=== PATIENT | female | born 1965 | race Caucasian/White ===

== ENCOUNTER 2018-04-03 12:16 | Inpatient (IN) ==
[2018-04-03 12:35] LABS: ALLEN TEST NO; BE 3.3 mmoll (-3.0-3.0); BLOOD TYPE ARTERIAL; HCO3-(ACT) 27.5 mmoll (20.0-26.0); METHB 1.4 % (0.0-1.5); MODALITY VENTIMASK; O2(CT) 15.2 mL/dL (15.0-23.0); O2HB 96.2 % (95.0-99.0); PO2(98.6) 190 mmHg (60-100); SAMPLE BLOOD; SAO2 99.7 % (95.0-100.0); THB 10.9 g/dL (11.5-17.4); pH(98.6) 7.35 (7.35-7.45)
[2018-04-03 12:36] LABS: PCO2(98.6) 54 mmHg (35-45)
--- NOTE | 2018-04-03 13:14 | Diag Imaging Result Doc PS360 ---
EXAM: CHEST-1 VIEW - 04/03/2018 HISTORY: s/p ? resp arrest/trach plug TECHNIQUE: Portable chest COMPARISON: None. FINDINGS: There is a tracheostomy tube with its tip located 3.5 cm above the milind. There is a PICC which enters from the left has its tip at the distal left innominate vein near the junction with the superior vena cava. Heart size is normal. Inspiration is slightly shallow. There is a small left lower lung granuloma from old granulomatous disease. Lungs otherwise appear essentially clear. There is no pleural effusion or pneumothorax identified. There is subacute or old fracture deformity of the proximal right humerus noted. IMPRESSION: Slightly shallow inspiration. No other evidence of acute disease. Electronically signed by Volodymyr Ricketts 04/03/2018 1:12 PM
[2018-04-03 13:16] LABS: BASO# 0.08 X1000 (0.0-0.2); BASO% 0.5 % (0.0-0.8); EOS% 0.7 % (0.0-10.0); HEMATOCRIT 33.6 % (37.0-47.0); HEMOGLOBIN 10.4 g/dL (12.0-16.0); IMM GRAN# 0.07 X1000 (0.0-0.04); IMM GRAN% 0.5 % (0.0-0.5); LYMPH# 1.87 X1000 (1.2-3.4); LYMPH% 12.5 % (20.5-51.1); MCV 90.3 FL (81-99); MONO# 0.94 X1000 (0.11-0.59); MONO% 6.3 % (1.7-9.3); MPV 11.5 FL (7.4-10.4); NEUT% 79.5 % (42.2-75.2); PLT 407 X1000 (130-400); RBC 3.72 XMIL (4.2-5.4); RDW 14.4 % (11.5-14.5); WBC 14.96 X1000 (4.8-10.8)
[2018-04-03 13:56] LABS: ESTIMATED GFR > 60
[2018-04-03 14:01] LABS: AGAP 12; ALBUMIN 3.5 g/dL (3.5-5.0); ALKALINE PHOSPHATASE 217 U/L (32-104); BUN 52 mg/dL (8-22); CALCIUM 8.5 mg/dL (8.8-10.2); CHLORIDE 108 mmol/L (98-107); COSMO 320; CREATININE 0.8 mg/dL (0.5-0.9); GLUCOSE 337 mg/dL (70-104); GOT 43 U/L (10-30); GPT 39 U/L (10-36); MAGNESIUM 2.6 mg/dL (1.5-2.7); POTASSIUM 5.6 mmol/L (3.5-5.1); SODIUM 147 mmol/L (136-145); TCO2 27 mmol/L (25-35); TOTAL BILIRUBIN 0.19 mg/dL (0.20-1.00); TOTAL PROTEIN 7.1 g/dL (6.3-8.3)
[2018-04-03] MEDS ORDERED: 1/2 NS 1,000 ML IV ONE (14:47)
[2018-04-03] MEDS ORDERED: HUMULIN R IV ONE (14:48)
[2018-04-03] MEDS ORDERED: CALCIUM GLUCONATE IV PUSH ONE (16:51)
[2018-04-03] MEDS ORDERED: XOPENEX NEB INH PRN (16:52)
[2018-04-03] MEDS ORDERED: ZOFRAN PEG PRN ×2 (16:58→19:33)
[2018-04-03] MEDS ORDERED: REGLAN PEG PRN (16:58)
[2018-04-03] MEDS ORDERED: DULCOLAX PR PRN (16:58)
[2018-04-03] MEDS ORDERED: VANCOMYCIN IV PER PHARMACY MISC SCH (17:00)
[2018-04-03] MEDS: NS 1,000 ML IV SCH (17:10)
[2018-04-03] MEDS ORDERED: ASPIRIN PEG SCH (17:15)
[2018-04-03 17:25] LABS: URINE SOURCE CATH
[2018-04-03] MEDS: PROTONIX IV SCH (17:27)
[2018-04-03 17:36] LABS: HEMOGLOBIN A1C 6.2 % (4.8-6.0)
[2018-04-03 17:41] LABS: BILIRUBIN URINE NEGATIVE (NEGATIVE); BLOOD URINE SMALL (NEGATIVE); COLOR YELLOW; GLUCOSE URINE 300 mg/dL (NEGATIVE); KETONE URINE NEGATIVE (NEGATIVE); LEUKOCYTES URINE SMALL (NEGATIVE); NITRITE URINE NEGATIVE (NEGATIVE); PH URINE 7.5; PROTEIN URINE 300 mg/dL (NEGATIVE); SP GRAVITY URINE 1.013; TURBIDITY URINE CLEAR (CLEAR); UROBILINOGEN URINE NORMAL (NORMAL)
[2018-04-03 17:43] LABS: UR EPITHELIAL CELLS >10 /HPF (<10); URINE BACTERIA NEGATIVE /HPF; URINE RBC <10 /HPF (<10); URINE WBC 20-40 /HPF (<10)
[2018-04-03 17:47] LABS: INR 0.98; PROTIME 13.7 Seconds (11.0-16.0); URINE CASTS GRANULAR PRESENT; URINE CRYSTALS NONE SEEN; URINE YEAST PRESENT
[2018-04-03] MEDS: MAXIPIME 2 GM in NS 100 ML IV SCH (18:17)
[2018-04-03 18:32] LABS: ESTIMATED GFR > 60
--- NOTE | 2018-04-03 18:35 | HISTORY AND PHYSICAL ---
DATE OF ADMISSION: 04/03/2018. CHIEF COMPLAINT: Respiratory distress. HISTORY OF PRESENT ILLNESS: Ms. Marrero is an unfortunate [id number]- female with a history of poly infarct dementia and has chronic respiratory failure and is in a bed bound state. Her history is quite complex and is only obtained per record review. She currently resides at [facility]. Over the past three months, she has suffered a severe and massive stroke followed by cardiac arrest and was subsequently trach and pegged and sent to LTAC in [place]. During that time, she was noted to be septic with tracheitis as well as found to have bilateral ileal psoas abscesses that were not amenable to intervention per the record. She was placed on long-term antibiotics and was discharged from LTAC on 03/24/2018 and transferred to [facility]. It appears that she is still on vancomycin but has completed all the rest of her antibiotics. She was transferred to our facility today because there was a question of respiratory arrest. However, per the ER doctor, when she got here, the patient was not in respiratory arrest. Apparently she had a mucus plug and with bag valve ventilation this was cleared , and she improved her respiratory status significantly. On further work up, she was found to be slightly hypercapnic. She had a white count of 15,000. She was also noted to be dehydrated with hypernatremia, mild hyperkalemia, elevated liver function tests and hyperglycemic. It was felt that she would need admission for these factors rather than respiratory symptoms. However, she is tachypneic and starting to have low grade fever as well as tachycardia. Again, this history is obtained per record review. The patient is nonverbal. Minimally responsive. There is no family at the bedside. We have tried to contact family, but the one contact number we have, no one answers the phone. We will admit her for further treatment and evaluation. PAST MEDICAL HISTORY: 1. Multi infarct dementia, bed bound state. 2. Status post cardiac arrest, now with chronic respiratory failure on trach and PEG. 3. Bilateral ileac muscle abscesses not amenable to IR on IV antibiotics which have essentially been completed. 4. Asthma. 5. Hyperlipidemia. 6. Osteoarthritis. 7. Diabetes mellitus. 8. Hypertension. 9. MRSA tracheitis. 10.Hepatitis C positive. 11.Complete bed bound state. 12.Status DNR per chart. SURGICAL HISTORY: Unknown. SOCIAL HISTORY: Unknown. REVIEW OF SYSTEMS: Unable to obtain. FAMILY HISTORY: Unknown. HOME MEDICATIONS: 1. Acetaminophen 650 mg per PEG q. 6 hours. 2. Breathing treatment--DuoNeb--3 mL every 6 hours. 3. Zyloprim 300 mg PEG daily. 4. Lipitor 20 mg PEG daily. 5. Dulcolax 10 mg suppository as needed. 6. Peridex oral solution 50 mg b.i.d. 7. Plavix 75 mg daily by PEG. 8. Pepcid 20 mg daily by PEG. 9. Lisinopril 5 mg daily by PEG. 10.Reglan 10 mg daily by PEG every 8 hours. 11.Singulair 10 mg daily by PEG daily. 12.NPH insulin 5 units subcutaneously b.i.d. 13.Zofran 4 mg per PEG as needed. 14.MiraLAX 17 grams per PEG b.i.d. 15.Vancomycin 750 mg IV piggyback as directed. ALLERGIES: NO KNOWN DRUG ALLERGIES. PHYSICAL EXAM: VITAL SIGNS: Blood pressure 123/91, heart rate 120, respiratory rate 28 and O2 saturation 100% on trach collar. Temperature 99.2. GENERAL: This is a chronically ill, malnourished appearing [id number]- female lying in a hospital bed in no acute distress. NEUROLOGICAL: The patient opens her eyes to verbal stimulus and follows commands. Muscle strength is greater on the right than left. It is 3/5 in the right upper and lower extremities and 2/5 on the left. HEENT: Normocephalic, atraumatic. Pupils are equal, round and reactive to light. Oral mucosa is dry. Trachea is midline. Trach is without exudate around the surgical site. CHEST: Essentially clear to auscultation bilaterally. She is tachypneic. CV: Tachycardic and regular. S1, S2 noted. GI: Soft and nondistended. Bowel sounds are active. EXTREMITIES: Without edema. Pulses are 1+ bilaterally. DIAGNOSTIC DATA: Chest x-ray shows shallow inspiration. No evidence of acute disease. WBC 15,000, hemoglobin 10.4, hematocrit 33.6 and platelet count 407. ABG on 50% FIO2--pH 7.35, pCO2 54 and pO2 190 with a bicarb of 27.5. Sodium 147, potassium 5.6, chloride 108, CO2 27, anion gap 12, BUN 52, creatinine 0.8 and glucose 337. Calcium 8.5, T-bili 0.19, AST 43, ALT 39, alk phos 217, troponin 0.1. ASSESSMENT AND PLAN: 1. Question of respiratory arrest/respiratory failure: The patient is hypercapnic. Unclear what her baseline is. There is no pneumonia on x-ray. However, given the above and her history, it would be prudent to start her on broad spectrum antibiotics. We have started her on Cefepime and vancomycin. We will continue oxygen as needed. Aggressive pulmonary toilet. Breathing treatments. She is DNR. There was a question of mucus plugging, but as stated previously this was likely cleared with bag valve mask connected to the trach. We will check a chest x-ray in the morning and monitor her status closely. 2. Presumed sepsis: The patient is tachypneic and tachycardic with an elevated white count. We do not have a source of infection. However, presuming possible aspiration pneumonia versus continued infection with possible ileal psoas abscesses or MRSA tracheitis, we have ordered childers cultures and will continue IV fluids. We will likely need infectious disease consultation for antibiotic management machine long goods helper. 3. Volume depletion with hypernatremia and hyperchloremia. The patient is clearly dehydrated. She has been given fluids. We will continue and trend her electrolytes. 4. Hyperkalemia: We are giving calcium gluconate, insulin, and breathing treatments. We will recheck a BMP now and in the morning and continue to treat as necessary. We are checking an EKG as well. 5. History of ileal psoas abscesses bilaterally and MRSA tracheitis: Continue antibiotics as described in numbers one and two. Culture is pending. 6. Diabetes mellitus requiring insulin. A1C has been ordered. Will continue her home medication and add pattern sugars and sliding scale insulin. 7. Elevated troponin: Unclear as to the significance given her inability to communicate. It is difficult to know if this is cardiac in origin or possibly secondary to dehydration and sepsis. We will continue to trend her enzymes and monitor. She is on Plavix which we will continue. We will also make sure she is getting aspirin. 8. History of hepatitis C. Aware. 9. History of multi infarct CVA with expressive aphasia. Aware. She is responsive and does follow commands with weakness as described in the physical exam. At this time, there is no need to check head CT. However, if her neurological status changes, we will go ahead and check one. We will continue aspirin and Plavix. 10.DVT prophylaxis with SCDs and GI prophylaxis with Protonix. We have also placed a nutrition consult for her tube feeding. CRITICAL CARE TIME: Greater than 1 hour. Dictated by STEPHEN Campos for Prasad Nunes MD Patient seen and examined by me face to face, all the laboratory, images and vitals signs were reviewed, patient presented to the emergency department with respiratory distress, unfortunately she is bed bound and she is nonverbal as well, she has bilateral rhonchi, crackles, decrease breath sound, decreased muscle mass, she looks like a chronically ill patient, had multiples strokes in the past, I am not quite sure about the history today, she probably has pneumonia, we will place this lady on antibiotics, breathing treatment , continue with nutrition, IV fluids, she has a tracheostomy in place, I agree with the BENEFITS ADVISOR's assessment and plan, Prasad Velasquez MD. cc: STEPHEN Campos MD [facility]
[2018-04-03 18:37] LABS: AGAP 13; BUN 51 mg/dL (8-22); CALCIUM 8.2 mg/dL (8.8-10.2); CHLORIDE 108 mmol/L (98-107); COSMO 309; CREATININE 0.7 mg/dL (0.5-0.9); GLUCOSE 180 mg/dL (70-104); POTASSIUM 5.1 mmol/L (3.5-5.1); SODIUM 146 mmol/L (136-145); TCO2 25 mmol/L (25-35)
[2018-04-03] MEDS: XOPENEX NEB INH SCH ×2 (19:30→23:30)
[2018-04-03] MEDS ORDERED: VANCOMYCIN 1,350 MG in NS 250 ML IV ONE (20:00)
[2018-04-03] MEDS: HUMULIN R SUBQ SCH (20:58)
[2018-04-03] MEDS: PERIDEX MT SCH (21:00)
[2018-04-03] MEDS ORDERED: LIPITOR PEG SCH (21:00)
[2018-04-03] MEDS: LIPITOR PEG SCH (21:55)
[2018-04-03] MEDS: MIRALAX PEG SCH (21:55)
[2018-04-03] MEDS: HUMULIN N SUBQ SCH (22:00)
[2018-04-04] MEDS: NS 1,000 ML IV SCH ×2 (01:45→09:49)
[2018-04-04] MEDS: XOPENEX NEB INH SCH ×4 (03:00→23:34)
[2018-04-04] MEDS: MAXIPIME 2 GM in NS 100 ML IV SCH ×2 (05:20→16:50)
[2018-04-04 05:42] LABS: AGAP 11; ALB/GLOB RATIO 0.8; ALBUMIN 2.8 g/dL (3.5-5.0); ALKALINE PHOSPHATASE 144 U/L (32-104); BUN 43 mg/dL (8-22); CHLORIDE 111 mmol/L (98-107); COSMO 303; CREATININE 0.6 mg/dL (0.5-0.9); ESTIMATED GFR > 60; GLUCOSE 102 mg/dL (70-104); GOT 22 U/L (10-30); GPT 25 U/L (10-36); MAGNESIUM 2.2 mg/dL (1.5-2.7); POTASSIUM 4.4 mmol/L (3.5-5.1); SODIUM 147 mmol/L (136-145); TCO2 25 mmol/L (25-35); TOTAL BILIRUBIN 0.33 mg/dL (0.20-1.00); TOTAL PROTEIN 6.5 g/dL (6.3-8.3)
[2018-04-04] MEDS: HUMULIN R SUBQ SCH ×4 (06:49→22:31)
--- NOTE | 2018-04-04 06:53 | Diag Imaging Result Doc PS360 ---
EXAM: CHEST-PORTABLE HISTORY: PNA TECHNIQUE: Portable chest single view COMPARISON: 04/03/2018 FINDINGS: No change in the tracheostomy tube. Interval development of basilar infiltrates or atelectasis, right greater than left. No cardiomegaly. No change in the left-sided PICC line. IMPRESSION: Interval worsening. Electronically signed by Kian Larios 04/04/2018 6:51 AM
--- NOTE | 2018-04-04 08:11 | EKG Report ---
Test Performed on : 04/03/2018 12:41:52 PM Test Reason : tachycardia, hyperkalemic Blood Pressure : / mmHG Vent. Rate : 131 BPM Atrial Rate : 131 BPM P-R Int : 122 ms QRS Dur : 076 ms QT Int : 296 ms P-R-T Axes : 046 011 046 degrees QTc Int : 437 ms Sinus tachycardia. Cannot rule out Anterior infarct , age undetermined Abnormal ECG When compared with ECG of 14-FEB-2007 20:41, No significant change was found Unconfirmed Result
[2018-04-04 08:18] LABS: BASO# 0.06 X1000 (0.0-0.2); BASO% 0.4 % (0.0-0.8); EOS% 2.2 % (0.0-10.0); HEMATOCRIT 29.5 % (37.0-47.0); HEMOGLOBIN 9.2 g/dL (12.0-16.0); IMM GRAN# 0.05 X1000 (0.0-0.04); IMM GRAN% 0.4 % (0.0-0.5); LYMPH# 1.92 X1000 (1.2-3.4); LYMPH% 14.2 % (20.5-51.1); MCH 28.5 PG (27-31); MCHC 31.2 g/dL (33-37); MCV 91.3 FL (81-99); MONO# 0.76 X1000 (0.11-0.59); MONO% 5.6 % (1.7-9.3); MPV 11.2 FL (7.4-10.4); NEUT# 10.42 X1000 (1.4-6.5); NEUT% 77.2 % (42.2-75.2); PLT 348 X1000 (130-400); RBC 3.23 XMIL (4.2-5.4); RDW 14.1 % (11.5-14.5); WBC 13.51 X1000 (4.8-10.8)
[2018-04-04] MEDS ORDERED: PEPCID PEG SCH (09:00)
[2018-04-04] MEDS: PRINIVIL PEG SCH (10:02)
[2018-04-04] MEDS: PLAVIX PEG SCH (10:02)
[2018-04-04] MEDS: ZYLOPRIM PEG SCH (10:02)
[2018-04-04] MEDS: MIRALAX PEG SCH ×3 (10:02→22:30)
[2018-04-04] MEDS: SINGULAIR PEG SCH (10:02)
[2018-04-04] MEDS: PERIDEX MT SCH (10:03)
[2018-04-04] MEDS: HUMULIN N SUBQ SCH ×2 (10:07→22:30)
[2018-04-04] MEDS: 1/2 NS 1,000 ML IV SCH (11:45)
--- NOTE | 2018-04-04 11:56 | PROGRESS NOTE ---
DATE: 04/04/2018 SUBJECTIVE: Patient is lying comfortably in bed. I do not think she is complaining of any kind of pain. She is nonverbal, and it looks like she follows commands on and off. Severe protein calorie malnutrition. Admitted due to apparently some respiratory distress. She does have some infiltrates at the bases, and we have a positive culture that showed gram-negative bianca in the sputum. I will continue with cefepime. This patient is DNR. She has multi-infarct dementia and cardiac arrest before with chronic respiratory failure on a trach and PEG tube. OBJECTIVE: Vital Signs: Temperature 97.8 degrees, pulse 112, respiratory rate 24, blood pressure 151/76, oxygen saturation 100% on a trach collar with 40% oxygen flow. HEENT: Head normocephalic. No trauma. PERRLA. Neck: Supple. No JVD. No masses. Central trachea. Chest: Decreased breath sounds at the bases with some rhonchi bilaterally. Abdomen: Soft, nontender, and nondistended. No hepatosplenomegaly. Extremities: No edema. No clubbing. No cyanosis. Decreased muscle mass and some muscle contracture. Neurological: The patient open her eyes to verbal stimuli, and she follows commands. She has generalized weakness, but I think her right side is stronger compared with the left side, but it is hard to say given her condition and she is nonverbal. LABORATORY: WBC 13.5, hemoglobin 9.2, hematocrit 29.5, and platelets 248,000. Sodium 147, potassium 4.4, chloride 111, bicarbonate 25, BUN 43, creatinine 0.6, glucose 102. Calcium 9. AST 22. ALT 25, alkaline phosphatase 144, albumin 2.8 and troponin 0.1. ASSESSMENT AND PLAN: 1. Acute on chronic respiratory failure. This patient has some infiltrates on the x-ray at the bases. We have a positive culture that showed gram-negative rods. She has been placed on cefepime. I will continue with the same management. Breathing treatment. Pulmonary toilet. She has a tracheostomy. 2. Bilateral lower lung pneumonia, she does have some infiltrates at the bases with a positive culture that showed gram-negative rods. She has been placed on cefepime and I will wait for the final sensitivity. 3. Severe dehydration. She looks better today, but she is still hypernatremic. I will stop the NS and I will put her on half NS and monitor. 4. Sepsis. This patient was tachypneic and tachycardic with elevated white blood cells, and he has some bilateral lower lobe infiltrates. Positive culture that showed gram-negative rods in the sputum. Apparently, also she had/has a psoas abscess or MRSA tracheitis history. We are childers culturing this patient. We will continue with the same management. 5. Hypernatremia. Like I mentioned before, I will change the fluid to half NS and monitor. 6. Hyperkalemia, resolved. 7. History of iliopsoas abscess and MRSA tracheitis. Continue with antibiotics. 8. Type 2 diabetes. Hemoglobin A1c is 6.2. We will continue with pattern of blood sugar and sliding scale insulin for now. 9. Elevated troponin of unclear significance given her inability to communicate. Her troponin has been around 0.1 x 4. I do not think she is a good candidate for any kind of invasive procedure. For now, we will monitor. 10. History of hepatitis C. Aware. 11. History of multi-infarct CVA with expressive aphasia She is nonverbal. For now, I will not do a CT scan unless there is some neurological changes. I think compared with yesterday she looks a little bit better. We will continue with aspirin and Plavix. 12. Deep vein thrombosis prophylaxis with sequential compression devices. cc: Prasad Nunes MD
[2018-04-04] MEDS ORDERED: CALMOSEPTINE OINTMENT TOP PRN (12:04)
[2018-04-04] MEDS: SODIUM CHLORIDE 0.9% INJ SCH (16:50)
[2018-04-04] MEDS: PROTONIX IV SCH (16:50)
[2018-04-04] MEDS: TYLENOL MISC PRN (22:20)
[2018-04-04] MEDS: LIPITOR PEG SCH (22:20)
[2018-04-05] MEDS: VANCOMYCIN 1,100 MG in NS 250 ML IV SCH (02:18)
[2018-04-05] MEDS: 1/2 NS 1,000 ML IV SCH ×2 (03:00→16:17)
[2018-04-05] MEDS: XOPENEX NEB INH SCH ×6 (03:58→22:54)
[2018-04-05] MEDS: MAXIPIME 2 GM in NS 100 ML IV SCH ×2 (04:00→16:15)
[2018-04-05] MEDS: PERIDEX MT SCH ×3 (05:46→22:13)
[2018-04-05 06:05] LABS: BASO# 0.08 X1000 (0.0-0.2); BASO% 0.6 % (0.0-0.8); EOS# 0.35 X1000 (0.0-0.7); EOS% 2.6 % (0.0-10.0); HEMATOCRIT 28.1 % (37.0-47.0); HEMOGLOBIN 8.8 g/dL (12.0-16.0); IMM GRAN# 0.05 X1000 (0.0-0.04); IMM GRAN% 0.4 % (0.0-0.5); LYMPH# 1.76 X1000 (1.2-3.4); LYMPH% 13.2 % (20.5-51.1); MCH 28.4 PG (27-31); MCHC 31.3 g/dL (33-37); MCV 90.6 FL (81-99); MONO# 1.07 X1000 (0.11-0.59); MPV 11.2 FL (7.4-10.4); NEUT# 10.06 X1000 (1.4-6.5); NEUT% 75.2 % (42.2-75.2); PLT 355 X1000 (130-400); RDW 13.8 % (11.5-14.5); WBC 13.37 X1000 (4.8-10.8)
[2018-04-05 06:37] LABS: AGAP 9; ALB/GLOB RATIO 0.8; ALBUMIN 2.9 g/dL (3.5-5.0); ALKALINE PHOSPHATASE 168 U/L (32-104); BUN 32 mg/dL (8-22); CALCIUM 8.8 mg/dL (8.8-10.2); CHLORIDE 111 mmol/L (98-107); COSMO 304; CREATININE 0.5 mg/dL (0.5-0.9); ESTIMATED GFR > 60; GLUCOSE 255 mg/dL (70-104); GOT 24 U/L (10-30); GPT 26 U/L (10-36); POTASSIUM 4.8 mmol/L (3.5-5.1); SODIUM 145 mmol/L (136-145); TCO2 25 mmol/L (25-35); TOTAL BILIRUBIN 0.22 mg/dL (0.20-1.00); TOTAL PROTEIN 6.6 g/dL (6.3-8.3)
--- NOTE | 2018-04-05 07:36 | Diag Imaging Result Doc PS360 ---
CHEST-PORTABLE - 04/05/2018 INDICATION: PNA COMPARISON: 04/04/2018 FINDINGS: Stable tracheostomy tube and left PICC line. There is collapse of the right middle lobe that has progressed since prior. The left lung remains clear. Heart size and pulmonary vascularity is normal. IMPRESSION: Essentially complete collapse of the right middle lobe probably mucous plugging. Electronically signed by Colten Moran 04/05/2018 7:34 AM
[2018-04-05] MEDS: HUMULIN R SUBQ SCH ×4 (08:09→22:14)
[2018-04-05] MEDS: MIRALAX PEG SCH ×2 (08:14→22:13)
[2018-04-05] MEDS: ZYLOPRIM PEG SCH (08:14)
[2018-04-05] MEDS: SINGULAIR PEG SCH (08:14)
[2018-04-05] MEDS: PRINIVIL PEG SCH (08:14)
[2018-04-05] MEDS: PLAVIX PEG SCH (08:14)
[2018-04-05] MEDS: HUMULIN N SUBQ SCH ×2 (10:55→22:14)
--- NOTE | 2018-04-05 11:48 | PROGRESS NOTE ---
DATE: 04/05/2018 SUBJECTIVE: Ms. Marrero presented with respiratory distress on 04/03/2018. A 52-year-old female with history of poly infarct dementia, chronic respiratory failure, bed-bound. Her history is quite complex and obtained from the old records. She suffered severe massive stroke followed by cardiac arrest, subsequent tracheostomy and, during that time, she was noted to be septic and tracheitis, found to have bilateral ileus psoas abscess that were not amenable to intervention, placed on long-term antibiotics and discharged on 03/24/2018, transferred to [facility]. It appears that she had vancomycin continued, and they completed the rest of her antibiotics. She was transferred to our facility because of question respiratory arrest. In the emergency room, the patient was not in respiratory arrest. Apparently she had a mucous plug and with bag-valve ventilation she was cleared, improved. Her respiratory status improved significantly. Further work up reveals she is found to be slightly hypercapnic. White count 15,000, noted to be dehydrated with hyponatremia, hyperkalemia, liver function test with elevated transaminases and hyperglycemia, so was admitted to adjust these factors. PAST MEDICAL HISTORY: 1. Multi-infarct dementia, bed bound. 2. Status post cardiac arrest with chronic respiratory failure on a tracheostomy. 3. Has a percutaneous endoscopic gastrostomy tube. 4. Bilateral iliac muscle for ileus psoas muscle abscess, which was not amenable to surgery. Received antibiotics, which had been completed. 5. Asthma. 6. Hyperlipidemia. 7. Osteoarthritis. 8. Diabetes mellitus. 9. Hypertension. 10. Methicillin-resistant Staphylococcus aureus tracheitis. 11. Hepatitis C positive. 12. Complete bed-bound state. 13. She is status do not resuscitate, so today she is awake. She really does not answer any questions. Has a trach with supplementary O2. OBJECTIVE: Temperature is 99 degrees, pulse 116, respirations 24, blood pressure 169/96.Eyes: Pupils are equal and round. Lungs: Clear in all lung zimmer. Cardiovascular exam: Regular rhythm and rate without murmur or S3. Abdomen: Soft. Skin: Warm, dry. Urine output is 5700 mL. LABS AND X-RAYS: Her blood sugars 209, 255, 279 and 170. EKG from this morning reveals sinus tachycardia, slow R-wave progression, no significant change. Chest x-ray from this morning: Essentially complete collapse of the right middle lobe, probably mucous plugging. ASSESSMENT AND PLAN: 1. Acute on chronic respiratory failure. Patient has had some infiltrates on chest x-ray at the bases. Positive cultures showed gram-negative rods. Appears to have some mucous plugging and atelectasis. He is placed on cefepime. 2. Bilateral lower lobe pneumonia. Continue to cover for gram-negative rods. Still on cefepime. 3. Severe dehydration, given intravenous fluids. This may help the mucous plugging. 4. Sepsis, came in with tachypnea and tachycardia, elevated white count, and some bilateral lower lobe infiltrates. Positive culture showed gram-negative rods in the sputum. Apparently has had ileus psoas abscesses which have been treated, and they grew out methicillin-resistant Staphylococcus aureus. 5. Tracheitis, which has been several months. 6. Hypernatremia. 7. Hyperkalemia, which I think is resolved. 8. History of ileus psoas muscles with methicillin-resistant Staphylococcus aureus tracheitis. 9. Diabetes mellitus type 2. 10. She had an elevated troponin when she presented. I did not think that there is evidence of cardiac ischemia or ongoing coronary insufficiency at this time. 11. History of hepatitis C. 12. History of multi-infarct cerebrovascular accident. A large cerebrovascular accident with expressive aphasia. So, continue present therapy. I think we should continue to try and give her some breathing treatments with DuoNeb, and I will put her on some guaifenesin. She right now is on vancomycin 1100 mg q. 30 hours. She is on MiraLAX 17 g b.i.d., Protonix 40 mg a day, Singulair 10 mg a day, cefepime 2 g IV q. 12 hours, lisinopril 5 mg per PEG daily. She is getting Xopenex breathing treatment 1.25 mg q. 4 hours, Plavix 75 mg a day, allopurinol 300 mg a day, Lipitor 20 mg a day, and she is getting normal saline at 75 mL an hour. cc: Willian Cabezas MD
[2018-04-05] MEDS: ROBITUSSIN PO SCH ×3 (12:17→22:15)
[2018-04-05] MEDS: TYLENOL MISC PRN ×2 (12:17→22:13)
[2018-04-05] MEDS: SODIUM CHLORIDE 0.9% INJ SCH (16:15)
[2018-04-05] MEDS: PROTONIX IV SCH (16:15)
[2018-04-05] MEDS: LIPITOR PEG SCH (22:13)
[2018-04-06] MEDS: ROBITUSSIN PO SCH ×6 (02:04→22:36)
[2018-04-06] MEDS: XOPENEX NEB INH SCH ×6 (02:41→23:00)
[2018-04-06 05:49] LABS: BASO# 0.06 X1000 (0.0-0.2); BASO% 0.5 % (0.0-0.8); EOS# 0.42 X1000 (0.0-0.7); EOS% 3.5 % (0.0-10.0); HEMATOCRIT 27.9 % (37.0-47.0); HEMOGLOBIN 8.8 g/dL (12.0-16.0); IMM GRAN# 0.05 X1000 (0.0-0.04); IMM GRAN% 0.4 % (0.0-0.5); LYMPH# 2.14 X1000 (1.2-3.4); LYMPH% 17.8 % (20.5-51.1); MCH 28.4 PG (27-31); MCHC 31.5 g/dL (33-37); MONO# 0.95 X1000 (0.11-0.59); MONO% 7.9 % (1.7-9.3); NEUT# 8.38 X1000 (1.4-6.5); NEUT% 69.9 % (42.2-75.2); PLT 326 X1000 (130-400); RDW 13.8 % (11.5-14.5)
[2018-04-06] MEDS: 1/2 NS 1,000 ML IV SCH ×4 (06:14→22:34)
[2018-04-06] MEDS: MAXIPIME 2 GM in NS 100 ML IV SCH ×2 (06:15→16:19)
[2018-04-06 06:18] LABS: AGAP 10; ALB/GLOB RATIO 0.7; ALBUMIN 2.6 g/dL (3.5-5.0); ALKALINE PHOSPHATASE 145 U/L (32-104); BUN 24 mg/dL (8-22); CALCIUM 9.1 mg/dL (8.8-10.2); CHLORIDE 110 mmol/L (98-107); COSMO 301; CREATININE 0.5 mg/dL (0.5-0.9); ESTIMATED GFR > 60; GLUCOSE 207 mg/dL (70-104); GOT 17 U/L (10-30); GPT 20 U/L (10-36); MAGNESIUM 1.9 mg/dL (1.5-2.7); POTASSIUM 4.4 mmol/L (3.5-5.1); SODIUM 146 mmol/L (136-145); TCO2 26 mmol/L (25-35); TOTAL BILIRUBIN 0.17 mg/dL (0.20-1.00); TOTAL PROTEIN 6.1 g/dL (6.3-8.3)
[2018-04-06] MEDS: HUMULIN R SUBQ SCH ×4 (07:00→22:35)
[2018-04-06] MEDS: MIRALAX PEG SCH ×2 (08:39→22:36)
[2018-04-06] MEDS: VANCOMYCIN 1,100 MG in NS 250 ML IV SCH (08:39)
[2018-04-06] MEDS: PRINIVIL PEG SCH (08:39)
[2018-04-06] MEDS: PLAVIX PEG SCH (08:39)
[2018-04-06] MEDS: HUMULIN N SUBQ SCH ×2 (08:39→22:35)
[2018-04-06] MEDS: ZYLOPRIM PEG SCH (08:39)
[2018-04-06] MEDS: SINGULAIR PEG SCH (08:39)
[2018-04-06] MEDS: PERIDEX MT SCH ×2 (08:40→22:36)
--- NOTE | 2018-04-06 09:20 | Diag Imaging Result Doc PS360 ---
EXAM: CHEST-PORTABLE 04/06/2018 HISTORY: PNA TECHNIQUE: AP portable at 0545 COMMENT: There is some improvement in the atelectasis in the right lower lobe compared to 04/05/2018. IMPRESSION: Improved atelectasis versus pneumonia. Electronically signed by Bao Hall 04/06/2018 9:17 AM
--- NOTE | 2018-04-06 10:24 | PROGRESS NOTE ---
DATE: 04/06/2018 SUBJECTIVE: Ms. Marrero was resting comfortably. She has a trach O2 and breathing comfortably. Easy to arouse. OBJECTIVE: Temperature 98.4, pulse 108, respirations 20, blood pressure 157/ 91. Pupils are equal and round. Lungs are clear in all lung zimmer. Cardiovascular: Regular rhythm and rate without murmur or S3. Abdomen is soft. Skin is warm and dry. No pedal edema. Urine output was 2800 mL. Chest x-ray from this morning, there is some improvement in atelectasis in the right lower lobe compared to 04/05/2018. ASSESSMENT AND PLAN: 1. [id number] respiratory failure. She has had some infiltrates on chest x-ray at the bases. Overall, it seems to be improving. There has been some mucous plugging. She is on cefepime. Continue present regimen and bronchodilators. She seems to be doing better. She still has supplemental O2 through her trach. 2. Bilateral lower lobe pneumonia which appears to be improving we continue coverage for gram- negative rods. Broad-spectrum coverage with cefepime. 3. Severe dehydration; on IV fluids. This seems to be improving. 4. Sepsis when she presented with tachypnea and tachycardia and elevated white count. 5. Tracheitis. treated for several months. Seems to be improving. 6. Hyponatremia. 7. Hyperkalemia. 8. History of psoas muscle abscess. Been treated for probable methicillin- resistant Staphylococcus aureus. 9. Diabetes mellitus, type 2. 10. Elevated troponin on presentation. No sign of cardiac ischemia. 11. History of hepatitis C. 12. She has multi-infarct dementia, and she has had cerebral vascular accident in the past with expressive aphasia. Continue present medications and treatment. cc: MD COCO Robert
[2018-04-06] MEDS: PROTONIX IV SCH (16:19)
[2018-04-06] MEDS: SODIUM CHLORIDE 0.9% INJ SCH (16:19)
[2018-04-06] MEDS: LIPITOR PEG SCH (22:35)
[2018-04-06] MEDS: TYLENOL MISC PRN (22:35)
[2018-04-07] MEDS: XOPENEX NEB INH SCH ×7 (03:00→23:30)
[2018-04-07] MEDS: ROBITUSSIN PO SCH ×5 (03:17→17:29)
[2018-04-07] MEDS: MAXIPIME 2 GM in NS 100 ML IV SCH ×2 (05:25→17:27)
[2018-04-07] MEDS: 1/2 NS 1,000 ML IV SCH ×2 (06:47→13:58)
[2018-04-07] MEDS: HUMULIN R SUBQ SCH ×3 (07:00→17:14)
[2018-04-07] MEDS: PRINIVIL PEG SCH (10:02)
[2018-04-07] MEDS: SINGULAIR PEG SCH (10:02)
[2018-04-07] MEDS: ZYLOPRIM PEG SCH (10:02)
[2018-04-07] MEDS: PLAVIX PEG SCH (10:02)
[2018-04-07] MEDS: HUMULIN N SUBQ SCH (10:12)
[2018-04-07] MEDS: PERIDEX MT SCH (10:24)
[2018-04-07] MEDS: MIRALAX PEG SCH (10:25)
[2018-04-07 10:34] LABS: AGAP 7; BUN 29 mg/dL (8-22); CALCIUM 8.4 mg/dL (8.8-10.2); CHLORIDE 106 mmol/L (98-107); COSMO 294; CREATININE 0.5 mg/dL (0.5-0.9); ESTIMATED GFR > 60; GLUCOSE 224 mg/dL (70-104); PHOSPHORUS 3.4 mg/dL (2.7-4.5); POTASSIUM 4.7 mmol/L (3.5-5.1); SODIUM 141 mmol/L (136-145); TCO2 28 mmol/L (25-35)
[2018-04-07 11:24] LABS: PREALBUMIN 22.9 mg/dL (20-40)
--- NOTE | 2018-04-07 13:47 | PROGRESS NOTE ---
DATE: 04/07/2018 SUBJECTIVE: Ms. Marrero looks comfortable. She is awake. She appeared in no distress. She seemed to understand and she nodded that she was not in any pain and her bowels were moving. She is breathing comfortably. OBJECTIVE: Vital Signs: Temperature 99.1, pulse 106, respirations 22, blood pressure 130/67. Eyes: Pupils are equal and round. Neck: No distended neck veins. Lungs: Clear anterolateral. Cardiovascular: Regular rhythm and rate without murmur or S3. Abdomen: Soft. Skin: Warm and dry. LABS: Urine output is 3300 mL. Chest x-ray from yesterday, improved atelectasis versus pneumonia. ASSESSMENT AND PLAN: 1. Acute on chronic respiratory failure. Has had some infiltrates on chest x-ray in the bases. Overall, it seems she is improving. Appears she may have had some mucus plugging, which is improving as well. She is on cefepime and she is getting bronchodilators. Seems to be doing better overall. Continue supplemental O2 through her trach. 2. Bilateral lower lobe pneumonia which appears to be improving. Continue coverage for gram- negative rods. Broad-spectrum coverage with cefepime. 3. Severe dehydration. This is improved as well. Continue IV fluids. 4. Sepsis when she presented. Suspected she had tachypnea and tachycardia, and elevated white count. All of these have improved. 5. Tracheitis for several months. This looks like it is improved as well. 6. Hyponatremia, resolved. 7. Hyperkalemia, resolved. 8. Psoas muscle abscess. Possible methicillin-resistant Staphylococcus aureus. Continue her present antibiotics. These appear to be improving. 9. Diabetes mellitus type 2. Blood sugars controlled. 10. Elevated troponin on presentation but no sign of cardiac ischemia. 11. History of hepatitis C. 12. Multi-infarct dementia. Cerebrovascular accident in the past which left her with expressive aphasia. Review of her orders. She is on Lipitor 20 mg a day. Normal saline at 75 mL an hour. Zyloprim 300 mg per PEG tube daily. Plavix 75 mg a day. She gets insulin Humulin NPH 5 units b.i.d. She is on Xopenex inhaler. Prinivil 5 mg per PEG tube daily, cefepime 2 g IV q.12. Vancomycin 1.1 g q.30 hours. We will repeat a chest x-ray tomorrow and see about her plans for discharge. cc: Willian Cabezas MD
[2018-04-07] MEDS: VANCOMYCIN 1,100 MG in NS 250 ML IV SCH (15:05)
[2018-04-07] MEDS: SODIUM CHLORIDE 0.9% INJ SCH (17:30)
[2018-04-07] MEDS: PROTONIX IV SCH (17:30)
[2018-04-08] MEDS: LIPITOR PEG SCH ×2 (00:40→21:05)
[2018-04-08] MEDS: PERIDEX MT SCH ×3 (00:41→20:18)
[2018-04-08] MEDS: ROBITUSSIN PO SCH ×7 (00:42→21:26)
[2018-04-08] MEDS: MIRALAX PEG SCH ×4 (00:43→20:17)
[2018-04-08] MEDS: HUMULIN N SUBQ SCH ×3 (00:44→21:04)
[2018-04-08] MEDS: HUMULIN R SUBQ SCH ×5 (00:45→21:21)
[2018-04-08] MEDS: XOPENEX NEB INH SCH ×6 (03:08→23:25)
[2018-04-08] MEDS: MAXIPIME 2 GM in NS 100 ML IV SCH ×2 (05:54→17:56)
[2018-04-08] MEDS: 1/2 NS 1,000 ML IV SCH ×3 (06:48→22:02)
--- NOTE | 2018-04-08 08:14 | Diag Imaging Result Doc PS360 ---
EXAM: CHEST-PORTABLE HISTORY: pneumonia TECHNIQUE: Chest single view COMPARISON: 04/06/2018 FINDINGS: No change in the tracheostomy tube or left-sided PICC line. There is a small right pleural effusion and infiltrates or atelectasis in the mid right lung. The left lung remains clear. No cardiomegaly. IMPRESSION: Slight interval improvement. Electronically signed by Kian Larios 04/08/2018 8:12 AM
[2018-04-08] MEDS: PRINIVIL PEG SCH (11:56)
[2018-04-08] MEDS: PLAVIX PEG SCH (11:56)
[2018-04-08] MEDS: SINGULAIR PEG SCH (11:56)
[2018-04-08] MEDS: ZYLOPRIM PEG SCH (11:56)
--- NOTE | 2018-04-08 12:44 | PROGRESS NOTE ---
DATE: 04/08/2018 SUBJECTIVE: Ms. Marrero is comfortable. She did open her eyes. She did not answer or respond. She is not able to talk, but appeared to be breathing comfortably. It appears that she is feeling better, more alert and less lethargic. OBJECTIVE: Vital Signs: Temperature 98.8 degrees, pulse 110, respirations 16, blood pressure 157/91. Eyes: Pupils are equal and round. Lungs: Clear in all lung zimmer. Cardiovascular exam: Regular rhythm and rate without murmur or S3. Both of her legs are in heel pads. Skin: Warm and dry. : Urine output was 3700 mL. IMAGING STUDIES: Her chest x-ray from this morning: Slight interval improvement. No change in tracheostomy tube. Left-sided PICC line. Small right pleural effusion, infiltrates and atelectasis of mid right lung. Left lung remains clear. ASSESSMENT AND PLAN: 1. Acute on chronic respiratory failure. She had some infiltrates on chest x-ray in the bases; seems to be improving. Clinically doing better. Feels she had some mucus plugging, which her lungs appear to be opening up. She is on cefepime and getting bronchodilators and overall improving with supplementary O2. Continue present regimen. 2. Bilateral lower lobe pneumonia which appears to be improving. Continue broad-spectrum coverage with cefepime. 3. Severe dehydration and that is improved with intravenous fluids. 4. She presented with sepsis, which has resolved. 5. Tracheitis for several months. This is improved. 6. Hyponatremia, resolved 7. Hyperkalemia, resolved. 8. Psoas muscle abscess. I believe it is probably methicillin-resistant Staphylococcus. So, she is on vancomycin and these areas seem to be resolving. 9. Diabetes mellitus type 2. Blood sugars look good. 10. Elevated troponin on presentation. I do not find any sat evidence of cardiac ischemia. 11. History of hepatitis C. 12. 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 I do not see any change in her medication. Of note, she is on Plavix 75 mg a day, and she is on Humulin NPH 5 units twice a day. 13. Discharge planning: She is from [facility]. So, hope to get her back the first of the week. cc: Willian Cabezas MD
[2018-04-08] MEDS: PROTONIX IV SCH (17:57)
[2018-04-08] MEDS: VANCOMYCIN 1,100 MG in NS 250 ML IV SCH (21:04)
[2018-04-09] MEDS: ROBITUSSIN PO SCH ×6 (02:10→23:08)
[2018-04-09] MEDS: XOPENEX NEB INH SCH ×6 (03:22→23:35)
[2018-04-09] MEDS: MAXIPIME 2 GM in NS 100 ML IV SCH ×2 (06:29→17:49)
[2018-04-09] MEDS: HUMULIN R SUBQ SCH ×4 (06:30→23:09)
[2018-04-09 07:05] LABS: AGAP 9; ALBUMIN 2.9 g/dL (3.5-5.0); BUN 21 mg/dL (8-22); CALCIUM 8.6 mg/dL (8.8-10.2); CHLORIDE 103 mmol/L (98-107); COSMO 283; CREATININE 0.4 mg/dL (0.5-0.9); ESTIMATED GFR > 60; GLUCOSE 212 mg/dL (70-104); POTASSIUM 3.9 mmol/L (3.5-5.1); SODIUM 137 mmol/L (136-145); TCO2 25 mmol/L (25-35)
[2018-04-09] MEDS: ZYLOPRIM PEG SCH (09:39)
[2018-04-09] MEDS: PRINIVIL PEG SCH (09:39)
[2018-04-09] MEDS: PLAVIX PEG SCH (09:39)
[2018-04-09] MEDS: SINGULAIR PEG SCH (09:39)
[2018-04-09] MEDS: HUMULIN N SUBQ SCH ×2 (09:40→23:09)
[2018-04-09] MEDS: PERIDEX MT SCH ×2 (09:45→23:09)
[2018-04-09] MEDS: MIRALAX PEG SCH ×2 (09:45→23:08)
--- NOTE | 2018-04-09 11:10 | PROGRESS NOTE ---
DATE: 04/09/2018 SUBJECTIVE: She is awake and alert. They just finished giving her a bath. She remains afebrile. OBJECTIVE: Vital Signs: Temperature 98.7 degrees, pulse 108, respirations 16, blood pressure 137/72. HEENT: Pupils are equal and round. Lungs: Clear in all lung zimmer. Cardiovascular: Regular rhythm and rate without murmur or S3. Abdomen: Soft. Skin: Warm and dry. LABORATORY DATA: Urine output is 3300 mL. Blood sugars 200, 155, 219. ASSESSMENT AND PLAN: 1. Acute on chronic respiratory failure. Some infiltrates bibasilar ,these are improving. Clinically, she is improving. Breathing is much better. [place] she had some mucous plugging. Respiratory status is markedly improved. 2. Bilateral lower lobe pneumonia. Continue present antibiotics. 3. Severe dehydration improved with IV fluids. 4. Presented with sepsis. This is resolved. 5. History of tracheitis for several months which has improved. 6. Hyponatremia resolved. 7. Hyperkalemia resolved. 8. Psoas muscle abscesses which probably are methicillin-resistant Staphylococcus. She is on vancomycin and these are resolving. 9. Diabetes mellitus type 2. Blood sugars under good control. 10. Elevated troponin. On presentation, did not find any evidence of cardiac ischemia. 11. History of hepatitis C. 12. Multi-infarct dementia. 13. Status post cerebrovascular accident which left her with expressive aphasia. 14. Hope to discharge her to [facility] on Wednesday. cc: Willian Cabezas MD
[2018-04-09] MEDS: 1/2 NS 1,000 ML IV SCH (13:55)
[2018-04-09] MEDS: DIFLUCAN PEG SCH (17:49)
[2018-04-09] MEDS: PROTONIX IV SCH (17:49)
[2018-04-09] MEDS: LIPITOR PEG SCH (23:08)
[2018-04-10] MEDS: ROBITUSSIN PO SCH ×6 (01:00→21:06)
[2018-04-10] MEDS: 1/2 NS 1,000 ML IV SCH ×2 (03:06→17:49)
[2018-04-10] MEDS: VANCOMYCIN 1,100 MG in NS 250 ML IV SCH (03:06)
[2018-04-10] MEDS: XOPENEX NEB INH SCH ×6 (03:17→23:25)
[2018-04-10] MEDS: MAXIPIME 2 GM in NS 100 ML IV SCH ×2 (06:54→17:47)
[2018-04-10] MEDS: HUMULIN R SUBQ SCH ×4 (07:23→21:06)
[2018-04-10] MEDS: PLAVIX PEG SCH (08:46)
[2018-04-10] MEDS: ZYLOPRIM PEG SCH (08:46)
[2018-04-10] MEDS: SINGULAIR PEG SCH (08:47)
[2018-04-10] MEDS: PRINIVIL PEG SCH (08:47)
[2018-04-10] MEDS: MIRALAX PEG SCH ×3 (08:47→21:21)
[2018-04-10] MEDS: DIFLUCAN PEG SCH (08:47)
[2018-04-10] MEDS: PERIDEX MT SCH ×2 (08:47→20:58)
[2018-04-10] MEDS: HUMULIN N SUBQ SCH (08:48)
--- NOTE | 2018-04-10 09:47 | PROGRESS NOTE ---
DATE: 04/10/2018 SUBJECTIVE: Ms. Marrero is awake and she appears comfortable. She is unable to talk. She has got aphasia. She has a tracheostomy tube in place. OBJECTIVE: Vital Signs: Remains afebrile. Temp 98.5, pulse 109, respirations 18, blood pressure 140/79. HEENT: Pupils are equal and round. Lungs: Clear in all lung zimmer. Cardiovascular: Regular rhythm and rate without murmur or S3. Abdomen: Soft. Urine output is 4200 mL. Extremities: Her legs look much better. Both of them in leg cushions and appears that the abscesses on her legs have resolved. ASSESSMENT AND PLAN: 1. Acute on chronic respiratory failure, bibasilar infiltrates. Are treating for bibasilar pneumonia. This is better. Continue present management. 2. Bilateral lower lobe pneumonia. 3. Severe dehydration, which improved with IV fluids. 4. Presented with sepsis. This is resolved. 5. History of tracheitis, which is improved as well. 6. Hyponatremia, resolved. 7. Hyperkalemia ,resolved. 8. Psoas muscle abscess. 9. Diabetes mellitus type 2. 10. History of hepatitis C. 11. Multi infarct dementia. 12. Status post cerebrovascular accident with expressive aphasia. 13. Hope to return to [facility] next week. cc: Willian Cabezas MD
[2018-04-10] MEDS: PROTONIX IV SCH (17:47)
[2018-04-10] MEDS: SODIUM CHLORIDE 0.9% INJ SCH (17:51)
[2018-04-10] MEDS: LIPITOR PEG SCH (21:06)
[2018-04-11] MEDS: HUMULIN N SUBQ SCH ×3 (00:31→22:50)
[2018-04-11] MEDS: ROBITUSSIN PO SCH ×5 (02:26→22:49)
[2018-04-11] MEDS: XOPENEX NEB INH SCH ×6 (03:11→23:09)
[2018-04-11] MEDS: MAXIPIME 2 GM in NS 100 ML IV SCH ×2 (05:31→17:26)
[2018-04-11] MEDS: HUMULIN R SUBQ SCH ×4 (07:31→22:50)
[2018-04-11] MEDS: 1/2 NS 1,000 ML IV SCH ×2 (07:31→22:49)
[2018-04-11] MEDS: MIRALAX PEG SCH ×2 (10:38→22:47)
[2018-04-11] MEDS: VANCOMYCIN 1,100 MG in NS 250 ML IV SCH (10:51)
[2018-04-11] MEDS: SINGULAIR PEG SCH (10:52)
[2018-04-11] MEDS: DIFLUCAN PEG SCH (10:52)
[2018-04-11] MEDS: PLAVIX PEG SCH (10:52)
[2018-04-11] MEDS: ZYLOPRIM PEG SCH (10:52)
[2018-04-11] MEDS: PRINIVIL PEG SCH (10:52)
[2018-04-11] MEDS: PERIDEX MT SCH (10:53)
--- NOTE | 2018-04-11 10:54 | PROGRESS NOTE ---
DATE: 04/11/2018 SUBJECTIVE: Ms. Marrero is sleeping, resting comfortably. NG tube feeding still in place. Her legs have cleared up. No sign of fever. OBJECTIVE: Vital signs: Temp 98.0 degrees, pulse 112, respirations 18, blood pressure 145/74. HEENT: Pupils are equal and round. Lungs: Clear in all lung zimmer. Cardiovascular: Regular rhythm and rate without murmur or S3. Abdomen: Soft. Skin: Warm and dry. Urine output is 2900 mL. LABORATORY: Blood sugar 230, 153, 222. ASSESSMENT AND PLAN: 1. Acute on chronic respiratory failure, bibasilar infiltrate. She is doing much better. The pneumonia is resolving. 2. Presented with severe dehydration. This has resolved as well. 3. Presented with sepsis, which has resolved. 4. History of tracheitis, improved. 5. Hyponatremia, resolved. 6. Hyperkalemia, resolved. 7. Psoas muscle abscesses which are markedly improved. 8. Diabetes mellitus type 2. Sugar is under good control. 9. History of hepatitis C. 10. Multi-infarct dementia. 11. Status post cerebral accident with expressive aphasia. Hoping to return to [facility]. We are going to have to probably get her off tube feedings. 12. Review of her orders. I do not see any change at this point. She is on vancomycin and cefepime. I think we may be able to discontinue her antibiotics pretty soon. cc: Willian Cabezas MD
[2018-04-11 13:26] LABS: AGAP 11; ALBUMIN 2.8 g/dL (3.5-5.0); BUN 23 mg/dL (8-22); CHLORIDE 107 mmol/L (98-107); COSMO 292; CREATININE 0.5 mg/dL (0.5-0.9); ESTIMATED GFR > 60; GLUCOSE 154 mg/dL (70-104); PHOSPHORUS 3.9 mg/dL (2.7-4.5); POTASSIUM 4.6 mmol/L (3.5-5.1); SODIUM 143 mmol/L (136-145); TCO2 25 mmol/L (25-35)
[2018-04-11] MEDS: SODIUM CHLORIDE 0.9% INJ SCH (17:27)
[2018-04-11] MEDS: PROTONIX IV SCH (17:27)
[2018-04-11] MEDS: LIPITOR PEG SCH (22:48)
[2018-04-11] MEDS: TYLENOL MISC PRN (22:48)
[2018-04-12] MEDS: 1/2 NS 1,000 ML IV SCH ×2 (00:53→22:32)
[2018-04-12] MEDS: XOPENEX NEB INH SCH ×6 (03:07→22:44)
[2018-04-12] MEDS: MAXIPIME 2 GM in NS 100 ML IV SCH (04:54)
[2018-04-12] MEDS: ROBITUSSIN PO SCH ×6 (04:54→22:32)
[2018-04-12] MEDS: HUMULIN R SUBQ SCH ×4 (07:30→22:33)
[2018-04-12] MEDS: MIRALAX PEG SCH ×2 (09:19→22:30)
[2018-04-12] MEDS: HUMULIN N SUBQ SCH ×2 (09:19→22:33)
[2018-04-12] MEDS: PLAVIX PEG SCH (09:20)
[2018-04-12] MEDS: PRINIVIL PEG SCH (09:20)
[2018-04-12] MEDS: SINGULAIR PEG SCH (09:20)
[2018-04-12] MEDS: ZYLOPRIM PEG SCH (09:20)
[2018-04-12] MEDS: PERIDEX MT SCH ×2 (09:23→22:30)
--- NOTE | 2018-04-12 12:22 | PROGRESS NOTE ---
DATE: 04/12/2018 SUBJECTIVE: This morning, Ms. Marrero continues to be feeling the same, unchanged. Per the nursing staff, the night was uneventful. OBJECTIVE: Vital signs: Blood pressure is 169/98, pulse is 101, respirations 14, temperature 97.9. General: Ms. Marrero is a 52-year-old female. She is in bed. She has a trach collar in place. Mucosa is pink and moist. Chest: Air entry is bilaterally reduced. There are both inspiratory and expiratory rhonchi diffusely. No crackles. Cardiovascular: Regular rate and rhythm. Abdomen: Soft. PEG tube is in place. Extremities: No pedal edema. TRIPPER: The patient is awake, alert, seems to understand and follows some basic commands. For the most part, she has generalized spasticity from previous anoxic brain injury. DIAGNOSTIC DATA: No laboratory data for today. Microbiology: Sputum culture was positive for Acinetobacter baumannii. Blood culture was also positive for Pantoea species 1 out of 2, but this is a gram-negative bacteria. ASSESSMENT: 1. Acute on chronic respiratory failure. The patient is currently on trach collar and seems to be fairly okay. 2. Bilateral lower lung pneumonia. Sputum culture positive for Acinetobacter baumannii which is extremely resistant to almost everything except for the aminoglycosides. We will consult ID. 3. Pantoea species (gram-negative bianca bacteremia). The patient is on adequate antibiotic coverage. We will repeat blood cultures to make sure that is completely cleared. 4. Diabetes mellitus. Controlled. 5. 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 6. History of hepatitis C. 7. History of multiinfarct cerebrovascular accident with expressive aphasia. 8. History of massive stroke followed by cardiac arrest. The patient is currently status post trach and PEG and was admitted in [facility] for a very long period of time after which she went to LT[facility] and was subsequently transferred to [facility] from where she came to this hospital. cc: Idris Dick MD
[2018-04-12] MEDS: MERREM 1 GM in NS 50 ML IV SCH ×2 (13:42→22:29)
--- NOTE | 2018-04-12 14:02 | INFECTIOUS DISEASE CONSULT REP ---
DATE: 04/12/2018 CONCLUSION: The patient has an Acinetobacter right lung pneumonia. The patient also has a Pantoea bacteremia. This was present when the patient was admitted to the hospital on April 03. RECOMMENDATIONS: I have switched the patient from vancomycin and cefepime to meropenem. As regarding the patient's bacteremia since the PICC was not put in before the bacteremia, I doubt that the bacteremia came from the PICC and hopefully, we can continue to use the PICC and not take it out now until the end of the patient's treatments. DISCUSSION: The patient is unable provide a history. She was brought into the hospital with respiratory distress. Her lab studies show a creatinine of 0.5, and a GFR of greater than 60. [place] a [place] [address], hemoglobin of 8.8, and platelet count of 326,000. The patient's chest x-ray shows a right lung infiltrate. Creatinine is 0.5. GFR is greater than 60. PAST MEDICAL HISTORY: 1. Positive for multi-infarct dementia and bed-bound state. 2. Status post cardiac arrest now with chronic respiratory failure. 3. Bilateral iliac muscle abscess is not amenable to treatment. 4. Asthma. 5. Hyperlipidemia. 6. Osteoarthritis. 7. Diabetes mellitus. 8. Hypertension. 9. MRSA tracheitis. 10. Hepatitis C positive. 11. Complete bed-bound state. 12. Status DNR per chart. PAST SURGICAL HISTORY: Unknown. SOCIAL HISTORY: Unknown. REVIEW OF SYSTEMS: Unable to obtain. HOME MEDICATIONS: 1. Acetaminophen. 2. DuoNeb breathing treatment. 3. Zyloprim. 4. Lipitor. 5. Dulcolax. 6. Peridex oral solution. 7. Plavix. 8. Pepcid. 9. Lisinopril. 10. Reglan. 11. Singulair. 12. Insulin. 13. Zofran. 14. MiraLAX. 15. Most recently, the patient, in the hospital, patient has been on vancomycin and cefepime. PHYSICAL EXAMINATION: Vital Signs: Temperature is 99.1 degrees, pulse 120, respirations 20, blood pressure 144/87. Patient is 5 feet 4 inches tall, weighs 100 pounds. General: This is a chronically ill and malnourished-appearing, middle-aged female. She is in no acute distress. Head/eyes/ears/nose/throat: No drainage from the nose or ears. Patient did track with her eyes. She did not open her mouth when I was interviewing her. Neck: The patient has a tracheostomy tube in place. Lungs: There were bilateral rhonchi. Cardiovascular: Heart rate is regular. Abdomen: Soft and nontender. A feeding tube has been placed percutaneously through the abdominal wall. Neurologic: The patient is lying in bed. She did move her arms to request, but she did not move her legs when I requested it. I asked her questions, but she did not talk and she did not shake her head yes or no. Integument: No rash noted. SUMMARY: I have discontinued vancomycin and cefepime and I placed the patient on meropenem. As discussed above, I do not think that it would be necessary to remove the PICC because the patient came into the hospital with the Pantoea bacteremia and it was not caused by the PICC because the PICC had not been placed yet. Thank you for the consult. cc: Manav Zarco MD
[2018-04-12] MEDS: PROTONIX IV SCH ×2 (15:06→17:30)
[2018-04-12] MEDS: SODIUM CHLORIDE 0.9% INJ SCH (15:06)
[2018-04-12] MEDS: LIPITOR PEG SCH (22:30)
[2018-04-12] MEDS: TYLENOL MISC PRN (22:32)
[2018-04-13] MEDS: 1/2 NS 1,000 ML IV SCH ×4 (01:44→22:32)
[2018-04-13] MEDS: PERIDEX MT SCH ×3 (01:44→22:34)
[2018-04-13] MEDS: XOPENEX NEB INH SCH ×6 (03:20→23:00)
[2018-04-13] MEDS: ROBITUSSIN PO SCH ×6 (05:00→22:34)
[2018-04-13] MEDS: MERREM 1 GM in NS 50 ML IV SCH ×4 (06:07→22:32)
[2018-04-13 06:46] LABS: BASO# 0.06 X1000 (0.0-0.2); BASO% 0.5 % (0.0-0.8); EOS# 0.24 X1000 (0.0-0.7); EOS% 1.8 % (0.0-10.0); HEMATOCRIT 25.9 % (37.0-47.0); HEMOGLOBIN 8.2 g/dL (12.0-16.0); IMM GRAN# 0.04 X1000 (0.0-0.04); IMM GRAN% 0.3 % (0.0-0.5); LYMPH# 1.61 X1000 (1.2-3.4); LYMPH% 12.1 % (20.5-51.1); MCH 28.7 PG (27-31); MCHC 31.7 g/dL (33-37); MCV 90.6 FL (81-99); MONO# 0.91 X1000 (0.11-0.59); MONO% 6.9 % (1.7-9.3); MPV 11.5 FL (7.4-10.4); NEUT% 78.4 % (42.2-75.2); PLT 359 X1000 (130-400); RBC 2.86 XMIL (4.2-5.4); RDW 15.2 % (11.5-14.5); WBC 13.26 X1000 (4.8-10.8)
[2018-04-13 06:54] LABS: AGAP 12; ALB/GLOB RATIO 0.8; ALBUMIN 2.9 g/dL (3.5-5.0); ALKALINE PHOSPHATASE 146 U/L (32-104); BUN 25 mg/dL (8-22); CALCIUM 9.1 mg/dL (8.8-10.2); CHLORIDE 105 mmol/L (98-107); COSMO 292; CREATININE 0.5 mg/dL (0.5-0.9); ESTIMATED GFR > 60; GLUCOSE 174 mg/dL (70-104); GOT 23 U/L (10-30); GPT 17 U/L (10-36); PHOSPHORUS 3.7 mg/dL (2.7-4.5); POTASSIUM 4.2 mmol/L (3.5-5.1); SODIUM 142 mmol/L (136-145); TCO2 25 mmol/L (25-35); TOTAL BILIRUBIN 0.23 mg/dL (0.20-1.00); TOTAL PROTEIN 6.4 g/dL (6.3-8.3)
--- NOTE | 2018-04-13 07:29 | Diag Imaging Result Doc PS360 ---
EXAM: CHEST-PORTABLE HISTORY: dyspnea TECHNIQUE: Portable chest single view COMPARISON: 04/08/2018 FINDINGS: there is a tracheostomy tube and left-sided PICC line. These are unchanged. Mild increase in the pleural fluid on the right. Slightly more prominent atelectasis on the right. No cardiomegaly. No vascular distention. IMPRESSION: Mild interval worsening. Electronically signed by Kian Larios 04/13/2018 7:26 AM
[2018-04-13] MEDS: HUMULIN R SUBQ SCH ×4 (07:44→22:35)
[2018-04-13] MEDS: MIRALAX PEG SCH ×2 (08:23→22:36)
[2018-04-13] MEDS: SINGULAIR PEG SCH (08:25)
[2018-04-13] MEDS: HUMULIN N SUBQ SCH ×2 (08:25→22:35)
[2018-04-13] MEDS: PRINIVIL PEG SCH (08:25)
[2018-04-13] MEDS: ZYLOPRIM PEG SCH (08:25)
[2018-04-13] MEDS: PLAVIX PEG SCH (08:25)
[2018-04-13] MEDS: SANTYL OINT TOP SCH (12:04)
[2018-04-13] MEDS: PROTONIX IV SCH (16:06)
[2018-04-13] MEDS: SODIUM CHLORIDE 0.9% INJ SCH (16:06)
--- NOTE | 2018-04-13 21:38 | INFECTIOUS DISEASE PROGRESS NO ---
DATE: 04/13/2018 PRESENT ILLNESS: The patient has an Acinetobacter right lung pneumonia. She also has a Pantoea bacteremia, the exact origin of which is uncertain. The patient does have a PICC in, but the PICC was put in after the bacteremia was discovered on the patient. MEDICATIONS: The patient is receiving meropenem as a single drug. PHYSICAL EXAMINATION: Vital Signs: Temperature is 97.8, pulse 116, respirations 16, blood pressure 134/78. General: This is a chronically ill and malnourished-appearing , middle-aged female. She is in no acute distress. Head, Eyes, Ears, Nose and Throat: No drainage was noted from the nose or ears. The patient did track with her eyes. She did not open her mouth. She did not speak. Neck: Patient has a tracheostomy in place. Lungs: There were bilateral rhonchi. Cardiovascular: Heart rate is regular. Abdomen: Soft and nontender. There is a feeding tube which has been placed percutaneously through the abdominal wall. Extremities: Patient has a PICC in place in her left arm. The site is not erythematous or swollen. Neurologic : The patient is lying in bed. She does not respond to verbal stimuli. She does not have a tremor. LAB AND X-RAY: CBC shows a white count of 13,260, hemoglobin 8.2 and platelet count 359,000. Creatinine is 0.5. GFR is greater than 60. The patient's chest x-ray for today shows increase in pleural fluid on the right side and slightly more prominent atelectasis on the right side. The patient also has infiltrates in the right mid lung. ASSESSMENT AND PLAN: The patient has an Acinetobacter pneumonia and a Pantoea bacteremia. My plan is to treat with meropenem and for a total of 14 days and day #1 is the first day that the repeat blood cultures are sterile. The blood cultures were drawn yesterday, but there is no result today. COMORBIDITIES: She has multi-infarct dementia and she is in a bed-bound status. She is had a cardiac arrest and has chronic renal failure, chronic respiratory failure. cc: Manav Zarco MD MTDD
[2018-04-13] MEDS: TYLENOL MISC PRN (22:34)
[2018-04-13] MEDS: LIPITOR PEG SCH (22:34)
[2018-04-14] MEDS: ROBITUSSIN PO SCH ×6 (01:55→22:27)
[2018-04-14] MEDS: XOPENEX NEB INH SCH ×6 (03:05→23:24)
[2018-04-14] MEDS: MERREM 1 GM in NS 50 ML IV SCH ×3 (06:00→22:23)
[2018-04-14] MEDS: HUMULIN R SUBQ SCH ×4 (07:00→22:21)
[2018-04-14] MEDS: HUMULIN N SUBQ SCH ×2 (08:52→22:25)
[2018-04-14] MEDS: PLAVIX PEG SCH (08:53)
[2018-04-14] MEDS: ZYLOPRIM PEG SCH (08:53)
[2018-04-14] MEDS: PRINIVIL PEG SCH (08:53)
[2018-04-14] MEDS: MIRALAX PEG SCH ×2 (08:53→22:26)
[2018-04-14] MEDS: SINGULAIR PEG SCH (08:53)
[2018-04-14] MEDS: PERIDEX MT SCH ×2 (08:54→22:27)
[2018-04-14] MEDS: SANTYL OINT TOP SCH (08:54)
[2018-04-14] MEDS: 1/2 NS 1,000 ML IV SCH (10:33)
--- NOTE | 2018-04-14 15:27 | INFECTIOUS DISEASE PROGRESS NO ---
DATE: 04/14/2018 PRESENT ILLNESS: The patient is being treated for an Acinetobacter pneumonia and a Pantoea bacteremia. MEDICATIONS: The patient is receiving meropenem in a dose of 1 g IV every 8 hours. She has received meropenem starting 5 days ago, which is the day that the patient's repeat blood cultures were negative. PHYSICAL EXAMINATION: Vital Signs: Temperature is 98.9 degrees, pulse 116, respirations 20, blood pressure 136/77. General: This is a chronically ill and malnourished-appearing, middle- aged female. She is in no acute distress. Head eyes, ears, nose and throat: There is no drainage from the nose or ears. Neck: There is no stiffness. She does have a tracheostomy in place. Lungs: Clear to auscultation. Cardiovascular: Heart rate is regular. Abdomen: Soft and nontender. There is a feeding tube that has been placed percutaneously through the abdominal wall. Extremities: Patient has a PICC in her left arm. The site is not erythematous or draining. Neurologic: The patient is lying in bed with her eyes closed. She does not respond to verbal stimuli. LAB AND X-RAY: There is no new lab or x-ray for today. There is also no new radiographic study for today. ASSESSMENT AND PLAN: The patient has an Acinetobacter pneumonia and Pantoea bacteremia. The patient has been on meropenem for 5 days. Two days ago was the first day that her blood cultures were negative. Therefore, the patient has as of today 2 days of treatment with meropenem and will need 12 more days to complete her 2-week treatment. COMORBIDITIES: The patient has multi-infarct dementia. She is in a bed-bound status. She had a cardiac arrest and has chronic renal failure and chronic respiratory failure. cc: Manav Zarco MD
[2018-04-14] MEDS: SODIUM CHLORIDE 0.9% INJ SCH (16:02)
[2018-04-14] MEDS: PROTONIX IV SCH (16:02)
[2018-04-14] MEDS: LIPITOR PEG SCH (22:22)
[2018-04-15] MEDS: 1/2 NS 1,000 ML IV SCH (01:09)
[2018-04-15] MEDS: ROBITUSSIN PO SCH ×3 (01:10→08:39)
[2018-04-15] MEDS: XOPENEX NEB INH SCH ×3 (03:00→11:21)
[2018-04-15] MEDS: MERREM 1 GM in NS 50 ML IV SCH (06:04)
--- NOTE | 2018-04-15 06:14 | DISCHARGE SUMMARY ---
ADMISSION DATE: 04/03/2018 DISCHARGE DATE: 04/15/2018 DISPOSITION: Back to [facility]. FOLLOWUP: DR. Zarco, patient's PCP. CONSULTATION DURING THIS ADMISSION: ID was consulted. Patient was seen by DR. Zarco. INVASIVE PROCEDURES DONE DURING THIS ADMISSION: None. IMAGING STUDIES OF SIGNIFICANCE: A chest x-ray was done on presentation which showed slightly shallow inspiration. No evidence of disease. Multiple chest x-rays was done afterwards. ADMISSION DIAGNOSES: 1. Respiratory failure. 2. Presumed sepsis. 3. Volume depletion with hyponatremia. 4. History of iliopsoas abscesses. 5. Elevated troponins. DIAGNOSES AT THE TIME OF DISCHARGE: 1. Acute on chronic hypoxemic respiratory failure. Patient uses tracheostomy collar. 2. Acinetobacter baumannii bilateral lower lobe pneumonia. 3. Pantoea species bacteremia. Subsequent blood cultures have been negative. 4. Diabetes mellitus, controlled. 5. History of iliopsoas abscesses. 6. History of methicillin-resistant Staphylococcus aureus tracheitis. 7. Hepatitis C. 8. History of multiple cerebrovascular accidents in the past with expressive aphasia. 9. History of massive stroke followed by cardiac arrest with residual anoxic brain injury. The patient is currently in a vegetable state. He is status post percutaneous endoscopic gastrostomy and tracheostomy. This was on admission in [facility]. DISCHARGE MEDICATIONS: 1. Acetaminophen 650 p.o. q.6h p.r.n. 2. Levalbuterol inhaler. 3. Atorvastatin 20 mg at bedtime. 4. Dulcolax 1 tablet p.r.n. 5. Clopidogrel 75 p.o. daily. 6. Lisinopril 5 mg daily. 7. Metoclopramide 10 mg q.8h p.r.n. 8. Humulin N 5 units subcutaneous b.i.d. 9. Antibiotic dose and duration to be determined by Dr. Zarco. Currently, patient is on meropenem 1 gram q.8. PRESENTING COMPLAINT: Respiratory distress. HISTORY OF PRESENTING COMPLAINT: Ms. Marrero is a 52-year-old female with history of multiple infarcts leading to dementia, chronic hypoxemic respiratory failure. Patient is on tracheostomy and bed-bound came from [facility] because of increasing oxygen demand. Upon presentation, patient was evaluated in the ER, was found to have difficulty breathing. White cell count was about 15,000. The patient was dehydrated with elevated sodium and hyperglycemic. The patient was felt to be in respiratory failure, was admitted initially to the ICU. HOSPITAL COURSE: Ms. Marrero was admitted to the ICU, titrated on her oxygen demand through her tracheostomy collar, which she progressively got better, and was transferred from the ICU to medical floor. The patient was also started on broad-spectrum antibiotics. Blood cultures had come back positive for Pantoea species, and the trachea aspirate was also positive for Acinetobacter baumannii. ID was consulted, and patient's antibiotics were changed to meropenem, which she has been on that for the past 2 days. The patient has been fairly stable on the current dosage. During the hospital course, glucose has also been very well-controlled. She is currently on just 5 L of oxygen through her tracheostomy collar. This morning, Ms. Marrero continues to be fairly stable and no new complaints. Her vitals: Blood pressure is 136/77, pulse is 106, respiration is 20, temperature 98.9 degrees. Physical exam continues to be fairly the same with no changes. 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 She has a tracheostomy and PEG, and she is nonverbal. She is currently clinically stable for discharge back to her residential from the ID progress note yesterday. It appears that they would treat her with the carbapenems for a total of 14 days. The dose and if the meropenem will be changed to Invanz for just easy administration will be determined by ID. TIME SPENT FOR DISCHARGE: 36 minutes. cc: Dr. Haroldo Dick MD
--- NOTE | 2018-04-15 07:14 | Diag Imaging Result Doc PS360 ---
EXAM: CHEST-PORTABLE 04/15/2018 HISTORY: pneumonia TECHNIQUE: AP portable at 0554 COMMENT: There is improvement in the subsegmental atelectasis in the right upper lobe seen on 04/13/2018. There is some platelike atelectasis in the right middle lobe. The tracheostomy and PICC line remain. IMPRESSION: Improved atelectasis. Electronically signed by Bao Hall 04/15/2018 7:12 AM
[2018-04-15] MEDS: HUMULIN R SUBQ SCH ×2 (08:07→10:54)
[2018-04-15] MEDS: PERIDEX MT SCH (08:38)
[2018-04-15] MEDS: PRINIVIL PEG SCH (08:38)
[2018-04-15] MEDS: SINGULAIR PEG SCH (08:38)
[2018-04-15] MEDS: PLAVIX PEG SCH (08:38)
[2018-04-15] MEDS: ZYLOPRIM PEG SCH (08:38)
[2018-04-15] MEDS: MIRALAX PEG SCH (08:38)
[2018-04-15] MEDS: HUMULIN N SUBQ SCH (08:41)
--- NOTE | 2018-04-15 10:50 | INFECTIOUS DISEASE PROGRESS NO ---
DATE: 04/15/2018 SUBJECTIVE: The patient is being treated for an Acinetobacter pneumonia and a Pantoea bacteremia. MEDICATIONS: The patient has been on meropenem now for 6 days. OBJECTIVE: Vital Signs: Temperature is 98.7 degrees, pulse 106, respirations 16, blood pressure 153/71. General: This is a chronically ill and malnourished-appearing, middle-aged female. She is in no acute distress. Head/eyes/ears/nose/throat: No drainage was noted from the nose or ears. She did not open her mouth when I asked her to. Neck: Tracheostomy is in place. Lungs: Clear to auscultation. Cardiovascular: Heart rate is regular. Abdomen: Soft and not tender. There is a feeding tube that has been placed percutaneously through the abdominal wall. Extremities: The patient has a PICC in her left arm. The site is not swollen or draining. Neurologic: The patient does not respond to verbal stimuli. She does not have a tremor. Integument: No rash noted. LAB AND X-RAY: There is no new lab for today. The chest x-ray showed improvement. ASSESSMENT AND PLAN: Patient is being treated for pneumonia and bacteremia. This is the 6th day of treatment with meropenem. I plan on 8 more days to complete a 2-week treatment course. COMORBIDITIES: Multi-infarct dementia, bed-bound status, history of cardiac arrest, chronic renal disease, and respiratory failure. cc: Manav Zarco MD
[2018-04-15] MEDS: SANTYL OINT TOP SCH (10:55)
[2018-04-15 11:45] VITALS: BP 137/66
--- NOTE | 2018-04-15 12:54 | PROVIDER DOCUMENTATION ---
This chart was entered by Chari England Scribe, acting as scribe for Ildefonso Simpson MD. HPI-Respiratory General - General Chief Complaint: Altered Mental Status Stated Complaint: respiratory arrest Time Seen by Provider: 04/03/18 12:26 Source: patient Allergies/Adverse Reactions: Patient Allergies Allergy/AdvReac Type Severity Reaction Status Date / Time No Known Allergies Allergy Verified 04/03/18 13:50 Home Medications: Home Medication List Medication Instructions Recorded Confirmed Last Taken Type Acetaminophen [Tylenol 8 Hour] 1 tab PEG Q6H PRN 04/03/18 04/03/18 Unknown History Albuterol 2.5MG/Ipratrop 0.5MG 1 dose INH Q6HR 04/03/18 04/03/18 04/03/18 History [Duoneb (A & A)] Allopurinol [Zyloprim] 1 tab PEG DAILY 04/03/18 04/03/18 04/03/18 History Atorvastatin Calcium [Lipitor] 1 tab PEG QHS 04/03/18 04/03/18 04/02/18 History Bisacodyl [Dulcolax] 1 supp RC PRN PRN 04/03/18 04/03/18 Unknown History Chlorhexidine Gluconate [Peridex] 1 dose BID 04/03/18 04/03/18 04/03/18 History Clopidogrel Bisulfate [Plavix] 1 tab PEG DAILY 04/03/18 04/03/18 04/03/18 History Famotidine [Pepcid] 1 tab PEG DAILY 04/03/18 04/03/18 04/03/18 History Lisinopril 1 tab PEG DAILY 04/03/18 04/03/18 04/03/18 History Metoclopramide [Reglan] 1 tab PEG Q8H PRN PRN 04/03/18 04/03/18 Unknown History Montelukast Sodium [Singulair] 1 tab PEG DAILY 04/03/18 04/03/18 04/03/18 History NPH, Human Insulin Isophane 5 unit SUBQ BID 04/03/18 04/03/18 04/03/18 History [Humulin N] Ondansetron HCl [Zofran] 1 tab PEG PRN PRN 04/03/18 04/03/18 Unknown History Polyethylene Glycol 3350 [Miralax] 1 dose PEG BID 04/03/18 04/03/18 04/03/18 History Vancomycin HCl in Dextrose 5 % 1 dose IV Q2HR 04/03/18 04/03/18 Unknown History [Vancomycin 750 mg/150 ml Bag] - History of Present Illness-Resp Nature of Presenting Problem: 52yof with hx of cardiorespiratory arrest, diabetes type 1, HTN, asthma, CHF, CVA, hyperlipidemia, Hepatitis C, gout via EMS presents verbally unresponsive since this morning. EMS reports the patient was found in respiratory distress at [facility]. EMS reports that the patient has been there for three days. According to the paperwork provided by EMS, the patient is DNR status. There is no family currently at bedside. Quality of Pain: reports: other (unsure, EMS reports when the patient was asked if she was in any pain that the patient shook her head.) Severity in ED: reports: moderate Onset/Duration: reports: this morning Timing: reports: still present, constant Cough Quality/Degree: reports: other (unsure due to pt verbally unresponsive) Current Respiratory Medication Therapy: Initiated see nurses note Modifying Factors: improves with: nothing Associated Symptoms: denies: fever/chills Similar Symptoms Previously?: No Recently seen or treated by another doctor?: No Review of Systems - Adult - REVIEW OF SYSTEMS - ADULT ROS:: limited per condition (pt is verbally unresponsive) Constitutional: denies: chills, fever Eyes: reports: no symptoms reported Ears, Nose, Mouth & Throat: reports: no symptoms reported Cardiovascular: reports: no symptoms reported Respiratory: reports: no symptoms reported Gastrointestinal: reports: no symptoms reported Genitourinary: reports: no symptoms reported Musculoskeletal: reports: no symptoms reported Integumentary: reports: no symptoms reported Neurological: reports: no symptoms reported Psychiatric: reports: no symptoms reported Endocrine: reports: no symptoms reported Hematologic/Lymphatic: reports: no symptoms reported Allergic/Immunologic: reports: no symptoms reported All Other Systems: Reviewed and Negative Past History - Adult - PAST MEDICAL HISTORY-ADULT Review of Records: reports: Old Records Reviewed, Nursing Assessment Review, Medications Reviewed Cardiovascular: reports: CHF, HTN, hyperlipidemia Respiratory: reports: asthma Endocrine/Immune: reports: Diabetes Diabetes Type: Type 1 Additional History: Hepatitis C, gout - PRIOR SURGERIES/PROCEDURES Surgical/Procedure History: reports: appendectomy, cholecystectomy, hysterectomy - IMMUNIZATION STATUS Childhood Immunizations: See Nurse Assessment Flu Vaccine: See Nurse Assessment - FAMILY HISTORY Family History: reviewed, not pertinent - SOCIAL HISTORY Living Situation: care facility Physical Exam-General - PHYSICAL EXAM-ADULT Initial Vital Signs Reviewed: Yes - CONSTITUTIONAL General Appearance: moderate distress, thin, other (pt appears diaphoretic and verbally unresponsive, pt has tracheal mask in place by EMS) - EYES Eyes: PERRL/EOMI, pink conjunctivae - NECK Neck: other (unable to examine due to pt unresponsive verbally) - RESPIRATORY Respiratory: decreased breath sounds, other (tachypneic) - CARDIOVASCULAR Cardiovascular: no murmur, tachycardia - GASTROINTESTINAL (ABDOMEN) Abdominal Exam: soft. negative: distended - MUSCULOSKELETAL Extremity: no pedal edema, other (soft boots in [facility] from [facility]) - SKIN Integumentary: warm/dry, diaphoresis, pallor. negative: cyanosis - NEUROLOGIC Neurologic: other (pt is verbally unresponsive) - PSYCHIATRIC Psych/Mental Status: other (pt is verbally unresponsive) Progress - PLAN OF CARE/RESULTS Progress/Plan/Lab Results: Vital Signs - 8 hr 04/03/18 12:28 04/03/18 13:01 04/03/18 13:02 Temperature 97.1 F L Pulse Rate 130 H 129 H 128 H Respiratory Rate 28 H 28 H Blood Pressure 158/87 152/95 152/95 O2 Sat by Pulse Oximetry 100 100 100 04/03/18 13:03 04/03/18 13:10 04/03/18 13:20 Temperature Pulse Rate 129 H 128 H 126 H Respiratory Rate Blood Pressure O2 Sat by Pulse Oximetry 100 100 100 04/03/18 13:30 04/03/18 13:32 04/03/18 13:40 Temperature Pulse Rate 126 H 126 H 126 H Respiratory Rate Blood Pressure 135/101 O2 Sat by Pulse Oximetry 100 100 100 04/03/18 13:50 04/03/18 14:00 04/03/18 14:02 Temperature Pulse Rate 125 H 124 H 124 H Respiratory Rate Blood Pressure 156/89 O2 Sat by Pulse Oximetry 100 100 100 04/03/18 14:10 04/03/18 14:20 04/03/18 14:30 Temperature Pulse Rate 125 H 124 H 122 H Respiratory Rate Blood Pressure O2 Sat by Pulse Oximetry 100 100 100 04/03/18 14:32 04/03/18 14:40 04/03/18 14:50 Temperature Pulse Rate 121 H 123 H 121 H Respiratory Rate 22 Blood Pressure 122/94 O2 Sat by Pulse Oximetry 100 100 100 Laboratory Results - last 24 hr 04/03/18 04/03/18 04/03/18 12:30 12:40 12:40 WBC 14.96 H RBC 3.72 L Hgb 10.4 L Hct 33.6 L MCV 90.3 MCH 28.0 MCHC 31.0 L RDW Std Deviation 14.4 Plt Count 407 H MPV 11.5 H Immature Gran % (Auto) 0.5 Neut % (Auto) 79.5 H Lymph % (Auto) 12.5 L Edwards % (Auto) 6.3 Eos % (Auto) 0.7 Baso % (Auto) 0.5 Immature Gran # (Auto) 0.07 H Neut # (Auto) 11.90 H Lymph # (Auto) 1.87 Edwards # (Auto) 0.94 H Eos # (Auto) 0.10 Baso # (Auto) 0.08 Specimen Type ARTERIAL Sample Site R BRACHIAL pH 7.35 pCO2 54 H* pO2 190 H HCO3 27.5 H Base Excess 3.3 H Oxyhemoglobin 96.2 ABG O2 Sat (Calculated) 15.2 ABG O2 Saturation 99.7 ABG Carboxyhemoglobin 2.00 ABG Methemoglobin 1.4 Willian Test NO A-a O2 Difference 99.0 Total Hemoglobin 10.9 L Lactate 1.10 Liter Flow 15.0 Blood Gas Modality VENTIMASK FiO2 % 50.0 Sodium 147 H Potassium 5.6 H Chloride 108 H Carbon Dioxide 27 Anion Gap 12 BUN 52 H Creatinine 0.8 Estimated GFR/1.73 m2 > 60 BUN/Creatinine Ratio 65 Glucose 337 H Calculated Osmolality 320 Calcium 8.5 L Magnesium 2.6 Total Bilirubin 0.19 L AST 43 H ALT 39 H Alkaline Phosphatase 217 H Troponin T Total Protein 7.1 Albumin 3.5 Globulin 3.6 Albumin/Globulin Ratio 1.0 04/03/18 12:40 WBC RBC Hgb Hct MCV MCH MCHC RDW Std Deviation Plt Count MPV Immature Gran % (Auto) Neut % (Auto) Lymph % (Auto) Edwards % (Auto) Eos % (Auto) Baso % (Auto) Immature Gran # (Auto) Neut # (Auto) Lymph # (Auto) Edwards # (Auto) Eos # (Auto) Baso # (Auto) Specimen Type Sample Site pH pCO2 pO2 HCO3 Base Excess Oxyhemoglobin ABG O2 Sat (Calculated) ABG O2 Saturation ABG Carboxyhemoglobin ABG Methemoglobin Willian Test A-a O2 Difference Total Hemoglobin Lactate Liter Flow Blood Gas Modality FiO2 % Sodium Potassium Chloride Carbon Dioxide Anion Gap BUN Creatinine Estimated GFR/1.73 m2 BUN/Creatinine Ratio Glucose Calculated Osmolality Calcium Magnesium Total Bilirubin AST ALT Alkaline Phosphatase Troponin T 0.100 H Total Protein Albumin Globulin Albumin/Globulin Ratio Orders Category Date Time Status CHEST-1 VIEW [RAD] Stat Exams 04/03/18 12:48 Completed ABG [RESP] Routine Lab 04/03/18 12:30 Completed CBC WITH DIFF [HEME] Stat Lab 04/03/18 12:40 Completed COMPREHENSIVE METABOLIC PANEL [CHEM] Stat Lab 04/03/18 12:40 Completed MAGNESIUM [CHEM] Stat Lab 04/03/18 12:40 Completed TROPONIN T Stat Lab 04/03/18 12:40 Completed Insulin Human Regular [Humulin R] Med 04/03/18 14:48 Discontinued 10 unit IV NOW ONE Sodium Chloride 0.45% Inj [1/2 Ns] 1,000 ml Med 04/03/18 14:47 Discontinued IV 999 mls/hr Result Diagrams: 04/03/18 12:40 04/03/18 12:40 - EKG 1 Time of EKG reading by physician:: 12:42 EKG Read and Signed by:: Ildefonso Simpson EKG Interpretation (*Must complete 3 of following elements*): Abnormal Rate: 131 Rhythm: Sinus tachycardia [place]: normal ST Wave: normal Comments: cannot rule out anterior infarct - XRAY 1 XRAY Study: Chest Impression: Abnormal (FINDINGS: There is a tracheostomy tube with its tip located 3.5 cm above the milind. There is a PICC which enters from the left has its tip at the distal left innominate vein near the junction with the superior vena cava. Heart size is normal. Inspiration is slightly shallow. There is a small left lower lung granuloma from old granulomatous disease. Lungs otherwise appear essentially clear. There is no pleural effusion or pneumothorax identified. There is subacute or old fracture deformity of the proximal right humerus noted.) - CONSULTS/PCP/HOSPITALIST Notification #1 *Consult/PCP/Hospitalist*: Dr. Galvan Time Discussed: 15:55 Consult Disposition: Admit Departure - Departure Date of Disposition Decision: 04/03/18 Time of Disposition Decision: 15:56 DIAGNOSIS: Respiratory arrest, Hypernatremia Uncontrolled diabetes mellitus Qualifiers: Diabetes mellitus type: type 1 Disposition: ADMITTED INPATIENT 09 Certified Medical Emergency: Emergent Condition: Stable Additional Freetext Instructions: ED Follow Up Instructions: You have been treated by a care provider in the Emergency Department. These instructions are being provided to you so you can have an understanding of how to care for yourself upon discharge. Upon discharge from the Emergency Department, you are responsible for making arrangements for follow-up care by a physician of your choice. Take all prescribed medications as directed. Return to the Emergency Department immediately for any new or worsening symptoms. You may call the Physician Referral phone number at [phone] to obtain a list of Physicians who are taking new patients. Referrals and Follow-Ups: None,PCP [Primary Care Provider] - Discharge Education: Hypernatremia, [id number] - Critical Care Note This patient required my direct & personal management of CC.: Yes Total Time (mins): 35 Critical Care Statement: This patient required my direct personal management to treat or rule out processes, the absence of which, could potentiallly result in sudden, clinically significant life or limb threatening deterioration. Attestation - Physician/ ANA M Attestation Patient care was provided by Advanced Practice Provider:: No The physician spent face to face time with patient:: Yes Advanced Practice Provider documentation review:: Supervising physician onsite and consulted in the evaluation and care of this patient. The physician did have a face to face encounter with the patient. This chart was documented by the indicated scribe, (Chari England Scribe) and accurately reflects the services I performed and decisions made by me, Ildefonso Simpson MD, as attested by the provider's signature.
--- NOTE | 2018-04-15 14:39 | PROGRESS NOTE ---
DATE: 04/15/2018 SUBJECTIVE: This morning, Ms. Marrero is fairly stable. She is awaiting disposition to [facility]. I understand she could not go yesterday because trach supply was not available. Clinically, she remains fairly stable. OBJECTIVE: Vitals: Blood pressure is 137/66, pulse is 88, respirations 18, temperature is 98.7 degrees. General: Physical exam is unchanged. HEENT: The patient still has a trach collar, getting oxygen and PEG tube is still in place. Neurologic: She remains for most part alert, but generalized spasticity from previous anoxic brain injury. ASSESSMENT AND PLAN: Ms. Marrero is stable for discharge today to [facility]. Please refer to the details of my discharge summary from yesterday. cc: Idris Dick MD
== END 2018-04-15 12:49 | DRG 871 ==
LOC: EDBD → ED 12:16 → SUATTDRO 17:12 → EDIPHOLD 17:12 → 4N 04-04 07:53
PROVIDERS: ATTEND Internal Medicine
CPT/HCPCS: 51702; 71010; 71045; 80048; 80053; 80202; 81001; 82040; 82550; 82805; 82948; 83036; 83605; 83735; 84100; 84134; 84443; 84484; 85025; 85610; 87040; 87070; 87077; 87088; 87186; 87205; 93005; 94640; 94761; 96361; 96365; 96366; 96367; 96375; 99285; A9270; C9113; J0610; J0692; J2185; J3370; J7030; J7050; S0164; XXXXX

== ENCOUNTER 2018-06-08 21:05 | Inpatient (IN) ==
[2018-06-08 22:05] LABS: BASO# 0.06 X1000 (0.0-0.2); BASO% 0.2 % (0.0-0.8); HEMATOCRIT 26.8 % (37.0-47.0); HEMOGLOBIN 8.5 g/dL (12.0-16.0); INR 1.17; LYMPH# 0.87 X1000 (1.2-3.4); LYMPH% 2.2 % (20.5-51.1); MCHC 31.7 g/dL (33-37); MCV 94.7 FL (81-99); MONO# 0.69 X1000 (0.11-0.59); MONO% 1.7 % (1.7-9.3); MPV 11.8 FL (7.4-10.4); NEUT# 38.13 X1000 (1.4-6.5); NEUT% 95.9 % (42.2-75.2); PLT 294 X1000 (130-400); PROTIME 15.8 Seconds (11.0-16.0); RBC 2.83 XMIL (4.2-5.4); RDW 14.9 % (11.5-14.5); WBC 39.75 X1000 (4.8-10.8)
--- NOTE | 2018-06-08 22:05 | Diag Imaging Result Doc PS360 ---
EXAM: CHEST-1 VIEW 06/08/2018 HISTORY: fever TECHNIQUE: AP upright portable at 2151 COMMENT: The left-sided PICC line has been removed since 04/15/2018. There is a tracheostomy tube. There is somewhat less right middle lobe atelectasis. Otherwise there has been no appreciable change since the previous study. IMPRESSION: Improved right middle lobe atelectasis. Electronically signed by Bao Hall 06/08/2018 10:02 PM
[2018-06-08 22:06] LABS: PTT 36.3 Seconds (22.3-41.8)
[2018-06-08 22:26] LABS: LYMPHS 2 % (21-51); SEGS 96 % (42-75)
[2018-06-08 22:36] LABS: ALB/GLOB RATIO 0.7; ALBUMIN 2.9 g/dL (3.5-5.0); CREATININE 2.1 mg/dL (0.5-0.9); POTASSIUM 6.6 mmol/L (3.5-5.1); TOTAL BILIRUBIN 0.19 mg/dL (0.20-1.00); TOTAL PROTEIN 7.2 g/dL (6.3-8.3)
[2018-06-08 22:36] LABS: ALLEN TEST YES; BLOOD TYPE ARTERIAL; HCO3-(ACT) 27.3 mmoll (20.0-26.0); METHB 1.5 % (0.0-1.5); MODALITY NRB; O2(CT) 12.6 mL/dL (15.0-23.0); O2HB 96.4 % (95.0-99.0); PCO2(98.6) 38 mmHg (35-45); PO2(98.6) 175 mmHg (60-100); SAMPLE BLOOD; SAO2 99.8 % (95.0-100.0); pH(98.6) 7.46 (7.35-7.45)
[2018-06-08] MEDS ORDERED: SODIUM BICARBONATE 8.4% IV ONE (22:51)
[2018-06-08] MEDS ORDERED: D50W SYRINGE IV ONE (22:51)
[2018-06-08] MEDS ORDERED: HUMULIN R SUBQ ONE (22:51)
[2018-06-08] MEDS ORDERED: KAYEXALATE PO ONE (22:51)
[2018-06-08] MEDS ORDERED: VANCOMYCIN 1 GM/NS 1 GM/250 ML IVPB IV ONE (22:52)
[2018-06-08] MEDS ORDERED: ZOSYN 3.375 GM in NS 50 ML IV ONE (22:52)
[2018-06-08] MEDS ORDERED: CALCIUM GLUCONATE 1 GM in NS 50 ML IV ONE (22:52)
[2018-06-09 00:32] LABS: URINE SOURCE CATH
[2018-06-09 00:38] LABS: BILIRUBIN URINE NEGATIVE (NEGATIVE); BLOOD URINE SMALL (NEGATIVE); COLOR YELLOW; GLUCOSE URINE NEGATIVE (NEGATIVE); KETONE URINE TRACE mg/dL (NEGATIVE); LEUKOCYTES URINE SMALL (NEGATIVE); NITRITE URINE NEGATIVE (NEGATIVE); PROTEIN URINE 300 mg/dL (NEGATIVE); SP GRAVITY URINE 1.014; TURBIDITY URINE CLEAR (CLEAR); UR EPITHELIAL CELLS <10 /HPF (<10); URINE BACTERIA NEGATIVE /HPF; URINE RBC <10 /HPF (<10); UROBILINOGEN URINE NORMAL (NORMAL)
--- NOTE | 2018-06-09 01:37 | PROVIDER DOCUMENTATION ---
This chart was entered by Leila Ruiz Scribe, acting as scribe for Yimi Herrera MD. HPI-Fever - General Chief Complaint: Fever Stated Complaint: sepsis Time Seen by Provider: 06/08/18 21:35 Source: RN/ Allergies/Adverse Reactions: Patient Allergies Allergy/AdvReac Type Severity Reaction Status Date / Time No Known Allergies Allergy Verified 04/04/18 08:58 Home Medications: Home Medication List Medication Instructions Recorded Confirmed Last Taken Type Acetaminophen [Tylenol 8 Hour] 1 tab PEG Q6H PRN 04/03/18 04/03/18 Unknown History Allopurinol [Zyloprim] 1 tab PEG DAILY 04/03/18 04/03/18 04/03/18 History Atorvastatin Calcium [Lipitor] 1 tab PEG QHS 04/03/18 04/03/18 04/02/18 History Bisacodyl [Dulcolax] 1 supp RC PRN PRN 04/03/18 04/03/18 Unknown History Chlorhexidine Gluconate [Peridex] 1 dose BID 04/03/18 04/03/18 04/03/18 History Clopidogrel Bisulfate [Plavix] 1 tab PEG DAILY 04/03/18 04/03/18 04/03/18 History Lisinopril 1 tab PEG DAILY 04/03/18 04/03/18 04/03/18 History Metoclopramide [Reglan] 1 tab PEG Q8H PRN PRN 04/03/18 04/03/18 Unknown History Montelukast Sodium [Singulair] 1 tab PEG DAILY 04/03/18 04/03/18 04/03/18 History NPH, Human Insulin Isophane 5 unit SUBQ BID 04/03/18 04/03/18 04/03/18 History [Humulin N] Ondansetron HCl [Zofran] 1 tab PEG PRN PRN 04/03/18 04/03/18 Unknown History Polyethylene Glycol 3350 [Miralax] 1 dose PEG BID 04/03/18 04/03/18 04/03/18 History Levalbuterol Neb [Xopenex Neb] 1.25 mg INH Q4H PRN PRN neb 04/14/18 Unknown Rx Levalbuterol Neb [Xopenex Neb] 1.25 mg INH RTQ4H neb 04/14/18 Unknown Rx - History of Present Illness-Fever Nature of Presenting Problem: 52 yof is nonverbal, arrived via ems. ems and rn gave pt info. [facility] is from [facility], running 102.9 fever for unknown amount of time, and has K+ of 7.2 in er. Fever Severity/Quality: reports: greater than 100.5 F Onset/Duration: reports: unsure Timing: reports: still present Severity: reports: mild Review of Systems - Adult - REVIEW OF SYSTEMS - ADULT Constitutional: reports: see HPI, fever (101.6 in er). denies: chills, fatique, night sweats Eyes: reports: no symptoms reported Ears, Nose, Mouth & Throat: reports: no symptoms reported Cardiovascular: reports: no symptoms reported Respiratory: reports: no symptoms reported Gastrointestinal: reports: no symptoms reported Genitourinary: reports: no symptoms reported Musculoskeletal: reports: no symptoms reported Integumentary: reports: no symptoms reported Neurological: reports: no symptoms reported Psychiatric: reports: no symptoms reported Endocrine: reports: no symptoms reported Hematologic/Lymphatic: reports: no symptoms reported Allergic/Immunologic: reports: no symptoms reported All Other Systems: Reviewed and Negative Past History - Adult - PAST MEDICAL HISTORY-ADULT Review of Records: reports: Old Records Reviewed, Nursing Assessment Review, Medications Reviewed, Social history reviewed & non-contributory. Major Childhood Illnesses: reports: denies history Cardiovascular: reports: CHF, HTN, hyperlipidemia, other (cardiac arrest) Respiratory: reports: asthma Gastrointestinal: reports: denies history Obstetrical/Gynecological: reports: denies history Genitourinary: reports: denies history Musculoskeletal: reports: arthritis (osteoarthritis) Neurological: reports: CVA, Seizures/Epilepsy Endocrine/Immune: reports: Diabetes Other Conditions: reports: denies history Additional History: Hepatitis C, gout - PRIOR SURGERIES/PROCEDURES Surgical/Procedure History: reports: appendectomy, cholecystectomy, hysterectomy - IMMUNIZATION STATUS Childhood Immunizations: See Nurse Assessment Flu Vaccine: See Nurse Assessment - FAMILY HISTORY Family History: reviewed, not pertinent - SOCIAL HISTORY Smoking: non-smoker Substance Use: none/never Physical Exam-General - PHYSICAL EXAM-ADULT Initial Vital Signs Reviewed: Yes - CONSTITUTIONAL General Appearance: alert, no apparent distress, thin, other (nonverbal). negative: lethargic, slow to respond, obtunded - EYES Eyes: PERRL/EOMI - HEAD, EARS, NOSE, MOUTH & THROAT HENMT: normocephalic/atraumatic, moist mucous membranes, normal ENT inspection - NECK Neck: non-tender, full range of motion, supple, normal inspection - RESPIRATORY Respiratory: chest non-tender, lungs clear, normal breath sounds - CARDIOVASCULAR Cardiovascular: normal peripheral pulses, no edema, no gallop, no JVD, no murmur , tachycardia. negative: regular rate, rhythm, JVD, bradycardia - GASTROINTESTINAL (ABDOMEN) Abdominal Exam: normal bowel sounds, non tender, soft - LYMPHATIC Lymphatic: no adenopathy - MUSCULOSKELETAL Back Exam: normal inspection, no CVA tenderness, no vertebral tenderness Extremity: normal range of motion, non-tender, normal inspection Peripheral Pulses: radial (R): 2+, radial (L): 2+ - SKIN Integumentary: normal color, normal turgor, warm/dry - NEUROLOGIC Neurologic: other (nonverbal). negative: letterer II-XII nml as tested, grossly normal, no motor/sensory deficits, aphasia, EOM palsy, facial droop - PSYCHIATRIC Psych/Mental Status: normal mood/affect, normal thought content, normal thought process, oriented x 3 Progress - PLAN OF CARE/RESULTS Progress/Plan/Lab Results: Vital Signs - 8 hr 06/08/18 21:46 06/08/18 22:35 06/09/18 01:24 Temperature 101.6 F H Pulse Rate 145 H 124 H Respiratory Rate 25 H 25 H Blood Pressure 143/107 114/57 O2 Sat by Pulse Oximetry 98 98 100 06/08/18 22:15 - Final Sputum 06/08/18 21:39 Influenza Screen - Final Nasopharyngeal Laboratory Results - last 24 hr 06/08/18 06/08/18 06/08/18 21:39 21:39 21:39 WBC 39.75 H RBC 2.83 L Hgb 8.5 L Hct 26.8 L MCV 94.7 MCH 30.0 MCHC 31.7 L RDW Std Deviation 14.9 H Plt Count 294 MPV 11.8 H Neut % (Auto) 95.9 H Lymph % (Auto) 2.2 L [place] % (Auto) 1.7 Eos % (Auto) 0.0 Baso % (Auto) 0.2 Neut # (Auto) 38.13 H Lymph # (Auto) 0.87 L [place] # (Auto) 0.69 H Eos # (Auto) 0.00 Baso # (Auto) 0.06 Segmented Neutrophils 96 H Lymphocytes 2 L Pathologist Review Cancelled Unidentified Cells 2.0 PT 15.8 INR 1.17 PTT (Actin FS) 36.3 Specimen Type Sample Site pH pCO2 pO2 HCO3 Base Excess Oxyhemoglobin ABG O2 Sat (Calculated) ABG O2 Saturation ABG Carboxyhemoglobin ABG Methemoglobin Willian Test A-a O2 Difference Total Hemoglobin Lactate Liter Flow Blood Gas Modality FiO2 % Sodium 137 Potassium 6.6 H* Chloride 97 L Carbon Dioxide 24 L Anion Gap 16 BUN 100 H Creatinine 2.1 H Estimated GFR/1.73 m2 25 BUN/Creatinine Ratio 48 Glucose 208 H Calculated Osmolality 311 Calcium 9.0 Total Bilirubin 0.19 L AST 36 H ALT 30 Alkaline Phosphatase 189 H Creatine Kinase 84 Troponin T Hhd-E-Nsspjirpfjh Pept Total Protein 7.2 Albumin 2.9 L Globulin 4.3 Albumin/Globulin Ratio 0.7 Plasma Lactate Urine Source Urine Color Urine Turbidity Urine pH Ur Specific [place] Urine Protein Ur Glucose (Stick) Ur Ketones (Stick) Urine Blood Urine Nitrite Urine Bilirubin Urobilinogen Dipstick Urine Leukocytes Urine WBC (Auto) Urine RBC (Auto) U Epithel Cells (Auto) Urine Bacteria (Auto) 06/08/18 06/08/18 06/08/18 21:39 21:39 21:48 WBC RBC Hgb Hct MCV MCH MCHC RDW Std Deviation Plt Count MPV Neut % (Auto) Lymph % (Auto) [place] % (Auto) Eos % (Auto) Baso % (Auto) Neut # (Auto) Lymph # (Auto) [place] # (Auto) Eos # (Auto) Baso # (Auto) Segmented Neutrophils Lymphocytes Pathologist Review Unidentified Cells PT INR PTT (Actin FS) Specimen Type Sample Site pH pCO2 pO2 HCO3 Base Excess Oxyhemoglobin ABG O2 Sat (Calculated) ABG O2 Saturation ABG Carboxyhemoglobin ABG Methemoglobin Willian Test A-a O2 Difference Total Hemoglobin Lactate Liter Flow Blood Gas Modality FiO2 % Sodium Potassium Chloride Carbon Dioxide Anion Gap BUN Creatinine Estimated GFR/1.73 m2 BUN/Creatinine Ratio Glucose Calculated Osmolality Calcium Total Bilirubin AST ALT Alkaline Phosphatase Creatine Kinase Troponin T 0.253 H Vxe-M-Dlhfuirjgzh Pept 3321 H Total Protein Albumin Globulin Albumin/Globulin Ratio Plasma Lactate 0.9 Urine Source Urine Color Urine Turbidity Urine pH Ur Specific [place] Urine Protein Ur Glucose (Stick) Ur Ketones (Stick) Urine Blood Urine Nitrite Urine Bilirubin Urobilinogen Dipstick Urine Leukocytes Urine WBC (Auto) Urine RBC (Auto) U Epithel Cells (Auto) Urine Bacteria (Auto) 06/08/18 06/08/18 06/09/18 22:26 23:38 00:30 WBC RBC Hgb Hct MCV MCH MCHC RDW Std Deviation Plt Count MPV Neut % (Auto) Lymph % (Auto) [place] % (Auto) Eos % (Auto) Baso % (Auto) Neut # (Auto) Lymph # (Auto) [place] # (Auto) Eos # (Auto) Baso # (Auto) Segmented Neutrophils Lymphocytes Pathologist Review Unidentified Cells PT INR PTT (Actin FS) Specimen Type ARTERIAL Sample Site R RADIAL pH 7.46 H pCO2 38 pO2 175 H HCO3 27.3 H Base Excess 3.0 Oxyhemoglobin 96.4 ABG O2 Sat (Calculated) 12.6 L ABG O2 Saturation 99.8 ABG Carboxyhemoglobin 1.90 ABG Methemoglobin 1.5 Willian Test YES A-a O2 Difference 491.0 Total Hemoglobin 9.0 L Lactate 1.40 Liter Flow 15.0 Blood Gas Modality NRB FiO2 % 100.0 Sodium Potassium Chloride Carbon Dioxide Anion Gap BUN Creatinine Estimated GFR/1.73 m2 BUN/Creatinine Ratio Glucose Calculated Osmolality Calcium Total Bilirubin AST ALT Alkaline Phosphatase Creatine Kinase 85 Troponin T Olg-Q-Grwuopcnfqf Pept Total Protein Albumin Globulin Albumin/Globulin Ratio Plasma Lactate Urine Source CATH Urine Color YELLOW Urine Turbidity CLEAR Urine pH 8.0 Ur Specific [place] 1.014 Urine Protein 300 A Ur Glucose (Stick) NEGATIVE Ur Ketones (Stick) TRACE A Urine Blood SMALL A Urine Nitrite NEGATIVE Urine Bilirubin NEGATIVE Urobilinogen Dipstick NORMAL Urine Leukocytes SMALL A Urine WBC (Auto) 10-20 A Urine RBC (Auto) <10 U Epithel Cells (Auto) <10 Urine Bacteria (Auto) NEGATIVE Orders Category Date Time Status Cardiac Monitoring DIRECTED Care 06/08/18 21:41 Active IV Insertion ORDERED Care 06/08/18 21:41 Active Notify MD of + Sepsis Screen NOW Care 06/08/18 21:41 Active Notify Physician As Ordered Care 06/08/18 21:41 Active CHEST-1 VIEW [RAD] Stat Exams 06/08/18 21:41 Completed ABG [RESP] Routine Lab 06/08/18 22:26 Completed BLOOD CULTURE [BLDCUL] Stat Lab 06/08/18 21:39 Results BNP [PRO B-NATRIURETIC PEPTIDE] Stat Lab 06/08/18 21:48 Completed CBC WITH DIFF [HEME] Stat Lab 06/08/18 21:39 Completed CK PROFILE [SP CHEM] Stat Lab 06/08/18 21:39 Completed CK PROFILE [SP CHEM] Stat Lab 06/08/18 22:50 Completed COMPREHENSIVE METABOLIC PANEL [CHEM] Stat Lab 06/08/18 21:39 Completed INFLUENZA SCREEN A/B Stat Lab 06/08/18 21:39 Completed LACTATE, PLASMA [CHEM] Stat Lab 06/08/18 21:39 Completed PROTIME WITH INR [COAG] Stat Lab 06/08/18 21:39 Completed PTT [COAG] Stat Lab 06/08/18 21:39 Completed SPUTUM CULTURE WITH GRAM STAIN [RM] Routine Lab 06/08/18 22:15 Results TROPONIN T Stat Lab 06/08/18 21:39 Completed URINALYSIS W/POSS RFLX CULT [URINALYSIS] Stat Lab 06/09/18 00:25 Completed URINE CULTURE [RM] Routine Lab 06/09/18 00:41 Received Calcium Gluconate 1 gm Med 06/08/18 22:52 Discontinued 0.9% Sodium Chloride Inj [Ns] 50 ml IV NOW Dextrose 50% Syringe [D50w Syringe] Med 06/08/18 22:51 Discontinued 50 ml IV NOW ONE Insulin Human Regular [Humulin R] Med 06/08/18 22:51 Discontinued 10 unit SUBQ NOW ONE Piperacillin/Tazobactam [Zosyn] 3.375 gm Med 06/08/18 22:52 Discontinued 0.9% Sodium Chloride Inj [Ns] 50 ml IV NOW Sodium Bicarbonate 8.4% Med 06/08/18 22:51 Discontinued 50 meq IV NOW ONE Sodium Polystyrene [Kayexalate] Med 06/08/18 22:51 Discontinued 30 gm PO NOW ONE Vancomycin 1 gm/Ns Med 06/08/18 22:52 Discontinued 1 gm in 250 ml IV NOW Oxygen Device Stat Oth 06/08/18 21:41 Completed EKG [EKG] Stat Ther 06/08/18 21:26 Ordered Result Diagrams: 06/08/18 21:39 06/08/18 21:39 - EKG 1 Time of EKG reading by physician:: 21:32 EKG Read and Signed by:: Yimi Herrera EKG Interpretation (*Must complete 3 of following elements*): Abnormal Rate: 132 (septal infarct, age undetermined) Rhythm: ST Comments: possible lateral infarct, age undetermined - XRAY 1 XRAY: Bilateral XRAY Study: Chest (EXAM: CHEST-1 VIEW 06/08/2018 HISTORY: fever TECHNIQUE: AP upright portable at 2151 COMMENT: The left-sided PICC line has been removed since 04/15/2018. There is a tracheostomy tube. There is somewhat less right middle lobe atelectasis. Otherwise there has been no appreciable change since the previous study. IMPRESSION: Improved right middle lobe atelectasis. Electronically signed by Bao Hall 06/08/2018 10:02 PM) Impression: Abnormal Departure - Departure Date of Disposition Decision: 06/09/18 Time of Disposition Decision: 01:36 DIAGNOSIS: Fever of unknown origin, Hyperkalemia Disposition: ADMITTED INPATIENT 09 Certified Medical Emergency: Emergent Condition: Stable Referrals and Follow-Ups: Krunal Grant MD [Primary Care Provider] - - Critical Care Note This patient required my direct & personal management of CC.: No Attestation - Physician/ ANA M Attestation Patient care was provided by Advanced Practice Provider:: No The physician spent face to face time with patient:: Yes Advanced Practice Provider documentation review:: Supervising physician onsite and consulted in the evaluation and care of this patient. The physician did have a face to face encounter with the patient. This chart was documented by the indicated scribe, (Leila Ruiz Scribe) and accurately reflects the services I performed and decisions made by me, Yimi Herrera MD, as attested by the provider's signature.
[2018-06-09] MEDS ORDERED: TYLENOL PO ONE (02:00)
[2018-06-09] MEDS ORDERED: ZOFRAN IV PRN (02:38)
[2018-06-09] MEDS: HEPARIN SUBQ SCH ×3 (02:45→18:20)
[2018-06-09] MEDS ORDERED: VANCOMYCIN IV PER PHARMACY MISC SCH (03:00)
[2018-06-09] MEDS: XOPENEX NEB INH SCH ×5 (03:00→23:44)
[2018-06-09 03:25] LABS: CREATININE 1.9 mg/dL (0.5-0.9); POTASSIUM 5.3 mmol/L (3.5-5.1)
[2018-06-09] MEDS ORDERED: REGLAN PEG PRN (03:29)
[2018-06-09] MEDS ORDERED: DULCOLAX PR PRN (03:29)
[2018-06-09] MEDS: MERREM 500 MG in NS 50 ML IV SCH ×3 (03:44→22:30)
[2018-06-09] MEDS: NS 1,000 ML IV SCH ×3 (03:44→18:20)
[2018-06-09] MEDS ORDERED: DUONEB (A & A) INH SCH (04:00)
--- NOTE | 2018-06-09 04:58 | HISTORY AND PHYSICAL ---
CHIEF COMPLAINT: Fever. HISTORY OF PRESENT ILLNESS: Ms. Marrero is an unfortunate 52-year-old female with a history of polyinfarct dementia and chronic respiratory failure with a tracheostomy, who is chronically bedbound. Her history is only able to be reviewed from old charting. She did not have any family at the bedside. Her last admission was on 04/03/2018 for presumed sepsis. She returns for basically the same state. The patient is tachycardic and febrile as well as tachypneic with no known source of infection at this time. She is a resident at [facility] and was sent into the emergency room for evaluation related to having hyperkalemia on her laboratory data with worsening CKD. The patient will be further worked up and admitted to ICU for further evaluation and treatment. PAST MEDICAL HISTORY: 1. Multiinfarct dementia with a chronic bedbound state. 2. Status post cardiac arrest, now with chronic respiratory failure with tracheostomy tube and PEG tube. 3. Bilateral iliac muscle abscesses. 4. Asthma. 5. Hyperlipidemia. 6. Osteoarthritis. 7. Diabetes mellitus which is insulin dependent. 8. Hypertension. 9. MRSA tracheitis. 10.Sepsis with previous culture growing out Acinetobacter pneumonia and Pantoea bacteremia. 11.Code status: DNR per chart. 12.Hepatitis C positive. SURGICAL HISTORY: Tracheostomy placement, PEG tube placement and cholecystectomy. FAMILY HISTORY: This is unable to be obtained. ALLERGIES: Aspirin, codeine, morphine and pregabalin. HOME MEDICATIONS: 1. Acetaminophen 650 mg per PEG tube q.6. 2. Xopenex nebulized q.4 hours. 3. Zyloprim 300 mg PEG daily. 4. Lipitor 20 mg PEG daily. 5. Dulcolax 10 mg suppository p.r.n. 6. Peridex oral solution 50 mg b.i.d. 7. Plavix 75 mg daily by PEG. 8. Pepcid 20 mg daily by PEG. 9. Lisinopril 5 mg daily by PEG. 10.Reglan 10 mg daily by PEG q.8 hours. 11.Singulair 10 mg daily by PEG. 12.NPH insulin 5 units subcutaneous b.i.d. 13.Zofran 4 mg per PEG as needed. 14.MiraLax 17 g per PEG b.i.d. REVIEW OF SYSTEMS: Unable to be obtained. PHYSICAL EXAMINATION: VITAL SIGNS: Temperature 101.6, pulse 124, respirations 25, blood pressure 114/57, oxygen saturation 100% on tracheostomy collar with an oxygen flow rate of 10 L. GENERAL: Chronically ill-appearing 52-year-old female who is somewhat aware of verbal stimulus. She does open her eyes and smile to verbal communication, can somewhat follow commands, lying in the ER stretcher. She is in no acute distress. HEENT: Head is atraumatic, normocephalic. Pupils equal, round, reactive to light. Extraocular eye movement is intact. Sclerae are anicteric. Conjunctiva is pale. Oral mucosa is mildly dry. NECK: Trachea is midline. Tracheostomy site is clean without noted mucus or exudate. LUNGS: Scattered rhonchi noted throughout bilateral air zimmer. No wheezing. No rales. Symmetric rise and fall with respirations. CARDIAC: S1, S2 appreciated. No murmurs, gallops, or rubs. Patient is tachycardic. ABDOMEN: Soft, nondistended, nontender. Bowel sounds present all 4 quadrants, hypoactive. PEG tube is noted. EXTREMITIES: No clubbing, cyanosis, or edema. One-plus pedal pulses. SKIN: Warm and dry. Appropriate color for race. 4 x 4 circular stage 4 decubitus to coccyx noted with foul smell. No drainage noted. MUSCULOSKELETAL: 3/5 left upper and lower extremity strength, 2/5 right upper and lower extremity strength. NEUROLOGICAL: Opens eyes to verbal stimulus and appears to follow some commands. Cranial nerves cannot thoroughly be tested. Patient is nonverbal with limited range of motion. DIAGNOSTIC DATA: CT of the thorax, abdomen and pelvis is pending. Chest x-ray: Improved right middle lobe atelectasis. LABORATORY DATA: WBC 39.75. Hemoglobin 8.5. Hematocrit 26.8. Platelet count 294. Coagulation studies within normal limits. ABG: pH 7.46, pCO2 of 38, pO2 of 175, bicarbonate 27.3. This was on 15 L of humidified tracheostomy collar O2. Sodium 137. Potassium 6.6. Chloride 97. Carbon dioxide 24. BUN 100. Creatinine 2.1. Glucose 208. Urine unremarkable. ASSESSMENT AND PLAN: 1. Presumed sepsis. Patient is febrile, tachypneic and tachycardic with leukocytosis. The source of infection is still to be determined. She has had bacteremia and pneumonia as sources of infection in the past as well as MRSA tracheitis. Her decubitus ulcer will also be considered as a source for sepsis. Pancultures are pending. We will start Merrem and vancomycin. Consult Infectious Disease to help with long-term antibiotic treatment. 2. Hyperkalemia. Patient has received Kayexalate with 2 doses in the emergency room. Recheck potassium is pending. She also received calcium gluconate, D50, insulin, sodium bicarbonate and albuterol treatment. We will continue to monitor labs and treat appropriately. 3. Anemia of chronic disease. We will order iron indices. 4. Chronic bedbound state with PEG and tracheostomy tube, aware. 5. Stage 4 coccyx decubitus. Please see above as well as we will consult Wound Care for help with management. 6. Diabetes mellitus, requiring insulin. Check fingerstick blood sugars q.4 hours with sliding scale insulin. 7. History of hepatitis C, aware. 8. 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 9. Chronic tropinemia. Patient has acute on chronic kidney disease. We will continue to trend enzymes. This is slightly elevated from her previous levels, but again, her creatinine has worsened from previous levels as well. 10.Acute kidney injury on chronic kidney disease. Gentle fluid hydration with normal saline. Further recommendations per patient clinical course. CRITICAL CARE TIME: One hour. Dictated by STEPHEN Taylor for Max Garay MD cc: STEPHEN Taylor MD [facility] Physician Independent exam and assessment performed by me at bedside with CONTACT ASSEMBLER. If hyperkalemia persists despite normal creatinine, consider type 4 RTA. Also consider sacral osteomyelitis as complication of noted stage 4 decub. MTDD
[2018-06-09] MEDS ORDERED: VANCOMYCIN 500 MG/NS 500 MG/100 ML IVPB IV ONE (06:00)
--- NOTE | 2018-06-09 06:46 | Diag Imaging Result Doc PS360 ---
CT THORAX/ABD/PELVIS W/O CON - 06/09/2018 INDICATION: sepsis COMPARISON: 05/12/2018 FINDINGS: CHEST: There is a tracheostomy tube in good position. There is no adenopathy. Heart and great vessels are normal. There are ill-defined bilateral basilar infiltrates. No significant pleural effusion. There is an old right shoulder fracture and old left rib deformity. There is also significant deformity of the sternum from an old healed fracture. Abdomen pelvis: There is a G-tube in good position. There are cholecystectomy clips. No bowel obstruction or inflammation. There is decubitus ulceration at the sacrum all the way to the bone, with soft tissue and bony gas. This indicates advanced osteomyelitis. There is a Joshua catheter in the urinary bladder. There is some vascular calcification of the pelvic and femoral arteries from vascular disease. There are probably tiny 1 mm renal stones bilaterally. No hydronephrosis or hydroureter. IMPRESSION: 1. Bilateral lower lobe infiltrates that are nonspecific, likely represent pneumonia. 2. Severe decubitus ulceration all the way to the sacrum. Lower sacrum/coccygeal osteomyelitis with soft tissue and bony gas. 3. Tiny nonobstructing 1 mm renal stones bilaterally. This exam was performed using automated exposure control, adjustment of mA or kV according to patient size, and/or use of iterative reconstruction technique Electronically signed by Colten Moran 06/09/2018 6:44 AM
[2018-06-09 07:31] LABS: CK PROFILE 73 U/L (24-173); IRON SATURATION 11 %; TIBC 123 ug/dL; TOTAL IRON 13 ug/dL (49-151); UNBOUND IRON 110 ug/dL (112-346)
--- NOTE | 2018-06-09 07:41 | EKG Report ---
Test Performed on : 06/08/2018 9:32:04 PM Test Reason : poss sepsis Blood Pressure : / mmHG Vent. Rate : 132 BPM Atrial Rate : 132 BPM P-R Int : 134 ms QRS Dur : 074 ms QT Int : 294 ms P-R-T Axes : 046 -29 031 degrees QTc Int : 435 ms Sinus tachycardia. Septal infarct (cited on or before 03-APR-2018) Possible Lateral infarct (cited on or before 03-APR-2018) Abnormal ECG When compared with ECG of 03-APR-2018 12:41, (Unconfirmed) Questionable change in initial forces of Septal leads Questionable change in initial forces of Lateral leads Unconfirmed Result
[2018-06-09] MEDS: HUMALOG SUBQ SCH ×4 (08:59→21:00)
--- NOTE | 2018-06-09 09:29 | INFECTIOUS DISEASE CONSULT REP ---
DATE: 06/09/2018 CONCLUSION: The patient has a bibasilar pneumonia. She also has an infected sacral and coccyx decubitus, which extends to bone. Therefore, not only is the decubitus ulcer infected, but the patient has underlying osteomyelitis of the sacrum and coccyx also. The patient may well have also a urinary tract infection but the culture is still pending, and she could have a bacteremia in view of how sick she is now, but that culture also is still pending. RECOMMENDATIONS: I agree with the decision to treat the patient with vancomycin and meropenem. I have ordered a culture of the sacral decubitus ulcer. DISCUSSION: The patient is unable to provide a history and no family member is present. She is living at [facility] and she was sent to the emergency room because of having hyperkalemia on her laboratory data with worsening kidney disease. [place] [address], hemoglobin 8.5, and platelet count 294,000. The patient's blood gases show a pH of 7.46, a PO2 of 175 and a pCO2 of 38. Creatinine is 1.9. GFR is 28. Blood, urine and sputum cultures are pending and as mentioned above, I have just ordered a sacral decubitus wound culture also. The patient's swab for influenza was negative. CT scan of the chest, abdomen, and pelvis shows bibasilar lower lobe infiltrates and a sacral and coccyx decubitus ulcer which extends to bone and has air in it. The patient also has on CT scan very small renal calculi. REVIEW OF SYSTEMS: Unable to obtain. PAST MEDICAL HISTORY: 1. Positive for multi-infarct dementia with a chronic bedbound state. 2. Status post cardiac arrest and she also has chronic respiratory failure and tracheostomy tube and PEG tube. 3. Bilateral iliac muscle abscesses. 4. Asthma. 5. Hyperlipidemia. 6. Osteoarthritis. 7. Diabetes mellitus. 8. Hypertension. 9. MRSA tracheitis. 10. Sepsis with Acinetobacter pneumoniae and Pantoea bacteremia. 11. Hepatitis C positive. CODE STATUS: The patient's code status is Do Not Resuscitate. PAST SURGICAL HISTORY: Positive for tracheostomy, PEG tube placement, and cholecystectomy. FAMILY HISTORY: Unable to be obtained. ALLERGIES: Include aspirin, codeine, morphine and pregabalin. HOME MEDICATIONS: Include: 1. Acetaminophen. 2. Xopenex nebulized every 4 hours. 3. Zyloprim. 4. Lipitor. 5. Dulcolax. 6. Peridex oral solution. 7. Plavix. 8. Pepcid. 9. Lisinopril. 10. Reglan. 11. Singulair. 12. NPH insulin. 13. Zofran. 14. MiraLAX. REVIEW OF SYSTEMS: Unable to be obtained. PHYSICAL EXAMINATION: Vital Signs: Temperature is 99 degrees, pulse 105, respirations 26, blood pressure 109/58. The patient weighs 141 pounds. General: This is a chronically ill-appearing middle-aged female. She is comatose. Head/eyes/ears/nose/throat: There is no drainage from the nose or ears. She did not track with her eyes. Neck: Patient has a tracheostomy in place. Lungs: Clear to auscultation. Cardiovascular: Heart rate is regular. Abdomen: Soft and nontender. A PEG tube is in place. The site is not erythematous or purulent. Neurologic: The patient lies still in bed. She did not respond to verbal stimuli. There is no tremor. Back: The patient has a large sacral decubitus ulcer which extends to the spine. There is necrotic tissue in the ulcer but I did not see any purulence. cc: Manav Zarco MD MTDD
[2018-06-09] MEDS: MIRALAX PEG SCH ×2 (10:22→21:00)
[2018-06-09] MEDS: PLAVIX PEG SCH (10:22)
[2018-06-09] MEDS: SINGULAIR PEG SCH (10:22)
[2018-06-09] MEDS: PERIDEX MISC SCH ×2 (10:23→21:00)
--- NOTE | 2018-06-09 10:50 | PROGRESS NOTE ---
DATE: 06/09/2018 HISTORY OF PRESENT ILLNESS: Ms. Marrero is a 52-year-old female who was admitted early this morning. She is a resident of [facility]. Ms. Marrero was actually discharged from the hospital in April of this year. She has a history of multiple strokes, and also cardiac arrest with anoxic brain injury. She is currently nonverbal, but she seems to understand some. I understand at the care home early yesterday she was found to have a high temperature of 102.9 degrees. She was brought into the emergency department where she was evaluated and admitted. This morning Ms. Marrero refers to be doing fairly okay. Denies any new complaints. OBJECTIVE: Vital signs: Blood pressure is currently 116/65, pulse 114, respirations 33, and temperature 98.9 degrees. It was 101.6 yesterday in the ER. General: Objectively, Ms. Marrero is a 52-year-old female. She is in bed. She looks emaciated. HEENT: Mucosa is slightly dry. Anicteric. Acyanotic. Neck: There is a trach in place. Chest: Air entry is bilaterally reduced. There is diffuse rhonchi and some crackles posteriorly. Cardiovascular: Tachycardic but no murmurs, no rubs, no gallops. Abdomen: Soft. There is a PEG tube in place. Bowel sounds are present. Extremities: No pedal edema. There is a Joshua catheter in place. 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 She is able to understand a few commands. She was able to show me her thumb. She was able to stick her tongue out all upon command. She does have some contraction all over. LABORATORY DATA: None for today. However, yesterday she had a WBC of 39.75, hemoglobin of 8.5, and platelet count of 294,000. ABG has been reviewed. Chemistry is also reviewed. Potassium is down to 5.3. Sodium is 146. The patient's creatinine is also down to 1.9 from 2.1. DIAGNOSTIC STUDIES: A chest x-ray which was done yesterday showed improved right middle lobe atelectasis. A CT scan of the chest, abdomen, and pelvis showed bilateral lower lobe infiltrates. There is also severe decubitus ulceration all the way to the sacrum. There is a tiny nonobstructing 1 mm renal stone. CURRENT MEDICATIONS: The patient's current medications have all been reviewed. She is on vancomycin and meropenem as an antimicrobial coverage. She is also getting IV fluids. She is currently not on any pressor. ASSESSMENT: 1. Septic shock on presentation. Etiology seems to be multifactorial including pneumonia, and possible UTI and decubitus ulcer with osteomyelitis. The patient is on antibiotics. We will be waiting on further recommendations from ID. Continue on blood cultures and other site cultures have all been done. 2. History of Acinetobacter baumannii complex UTI. The patient had urine cultures 2 showing gram- negative bianca. This is a very multi resistant pathogen. She has been started on meropenem, and will be waiting on further guidance from ID. 3. Acute renal failure. We will continue with the IV fluids. 4. Decubitus ulcer with advancement into the sacral bone, questionable advanced osteomyelitis. We will continue with the current antibiotics. Wound care and surgery will all be consulted. 5. Multiple strokes in the past noted. 6. Chronic hypoxemic respiratory failure. The patient is currently on trach collar. 7. Status post cardiac arrest in the past. Patient is currently bed-bound. PLAN: In general, Ms. Marrero continues to be remarkably sick. Blood pressures are now fairly stable. We will continue with the IV fluids and the current antibiotic coverage. The patient is being seen by ID. We will get wound care as well as Surgery to evaluate for the sacral ulcers to evaluate the need for debridement. cc: Idris Dick MD [facility]
[2018-06-09] MEDS: DAKIN'S 0.25% SOLN TOP SCH (21:00)
[2018-06-09] MEDS: LIPITOR PEG SCH (22:27)
[2018-06-10] MEDS: HEPARIN SUBQ SCH ×3 (02:45→17:49)
[2018-06-10] MEDS: XOPENEX NEB INH SCH ×6 (03:38→23:34)
[2018-06-10] MEDS: MERREM 500 MG in NS 50 ML IV SCH ×3 (06:36→22:38)
[2018-06-10] MEDS: NS 1,000 ML IV SCH ×2 (06:36→07:55)
[2018-06-10] MEDS: HUMALOG SUBQ SCH ×5 (06:37→22:29)
[2018-06-10] MEDS: SINGULAIR PEG SCH (08:45)
[2018-06-10] MEDS: PERIDEX MISC SCH ×2 (08:45→20:14)
[2018-06-10] MEDS: PLAVIX PEG SCH (08:45)
[2018-06-10] MEDS ORDERED: INSULIN PEN NEEDLES ONE (08:46)
[2018-06-10] MEDS: MIRALAX PEG SCH ×2 (08:46→20:14)
[2018-06-10] MEDS: DAKIN'S 0.25% SOLN TOP SCH (08:46)
[2018-06-10] MEDS ORDERED: BASAGLAR SUBQ SCH (09:00)
[2018-06-10 09:26] LABS: BASO# 0.05 X1000 (0.0-0.2); BASO% 0.3 % (0.0-0.8); EOS# 0.05 X1000 (0.0-0.7); EOS% 0.3 % (0.0-10.0); HEMATOCRIT 24.3 % (37.0-47.0); HEMOGLOBIN 7.4 g/dL (12.0-16.0); IMM GRAN# 0.04 X1000 (0.0-0.04); IMM GRAN% 0.2 % (0.0-0.5); LYMPH# 1.39 X1000 (1.2-3.4); LYMPH% 8.4 % (20.5-51.1); MCH 28.8 PG (27-31); MCHC 30.5 g/dL (33-37); MCV 94.6 FL (81-99); MONO# 1.05 X1000 (0.11-0.59); MONO% 6.3 % (1.7-9.3); MPV 11.8 FL (7.4-10.4); NEUT# 13.98 X1000 (1.4-6.5); NEUT% 84.5 % (42.2-75.2); PLT 252 X1000 (130-400); RBC 2.57 XMIL (4.2-5.4); RDW 14.7 % (11.5-14.5); WBC 16.56 X1000 (4.8-10.8)
[2018-06-10 09:45] LABS: ALBUMIN 2.6 g/dL (3.5-5.0); PHOSPHORUS 2.8 mg/dL (2.7-4.5)
[2018-06-10 10:16] LABS: PREALBUMIN 10.3 mg/dL (20-40)
[2018-06-10 10:17] LABS: ALB/GLOB RATIO 0.6; ALBUMIN 2.6 g/dL (3.5-5.0); CALCIUM 9.3 mg/dL (8.8-10.2); CREATININE 1.2 mg/dL (0.5-0.9); POTASSIUM 3.7 mmol/L (3.5-5.1); TOTAL BILIRUBIN 0.16 mg/dL (0.20-1.00); TOTAL PROTEIN 7.1 g/dL (6.3-8.3)
--- NOTE | 2018-06-10 10:22 | GENERAL SURGERY CONSULTATION ---
DATE: 06/10/2018 REQUESTING PHYSICIAN: Hospitalist service. Consult concerning decubitus ulcer. HISTORY OF PRESENT ILLNESS: A 52-year-old female with a history of poly infarct dementia with chronic respiratory failure, who has been chronically bed-bound. Full history of her admission is difficult to find as patient cannot verbalize, but reviewed from other notes. She is apparently a resident at [facility] and was sent to the emergency department for evaluation of hyperkalemia and worsening chronic kidney disease. There was some concern that she might be developing sepsis. She had a strong history of infections and she has been here most recently back in March for this. She does have a pressure ulcer to her sacrum, which I was asked to weigh an opinion. PAST MEDICAL HISTORY: 1. Multi-infarct dementia. 2. History of cardiac arrest. 3. Chronic respiratory failure with tracheostomy. 4. Asthma. 5. Hyperlipidemia. 6. Osteoarthritis. 7. Diabetes mellitus. 8. Hypertension. 9. History of hepatitis C. PAST SURGICAL HISTORY: Includes previous PEG, cholecystectomy and tracheostomy. FAMILY HISTORY: Unable to obtain secondary to patient's nonverbal status. ALLERGIES: Aspirin, codeine, morphine, pregabalin. HOME MEDICATIONS: Full list reviewed. Of note she is on Plavix at home. REVIEW OF SYSTEMS: Unable to obtain secondary to patient's nonverbal status. No family at bedside. PHYSICAL EXAMINATION: Vital Signs: The patient's current temperature is 98.9 degrees, pulse 110, looks regular, blood pressure 147/82. General: No acute distress. Chronically ill female. HEENT: Normocephalic, atraumatic. Pupils equal, round, reactive to light. Mucous membranes moist. Oropharynx benign. Neck: Tracheostomy in place. Lungs: Some coarse sounds noted. Cardiovascular: Tachycardic, but appears regular. Abdomen: Soft. PEG tube in place. Sacrum: There is a stage IV pressure ulcer noted with some hard well attached slough. Extremities: No edema. Neurologic: Patient seems to be able to communicate but not able to actually say words because of the tracheostomy. Skin: Pressure wound as noted above. Vascular: All extremities appear to be perfused. LABORATORY: None this morning as of yet but reviewed previous notes. Microbiology: Gram stain from the wound shows some gram-negative rods. Blood cultures are no growth. IMAGING: CT scan independently reviewed and radiology report reviewed. There is some concern of potential osteomyelitis. ASSESSMENT AND PLAN: A 52-year-old female with stage IV sacral ulcer and multiple medical comorbidities. 1. Multiple medical comorbidities at this time being managed by the hospitalist service. Defer to them. 2. Stage IV pressure ulcer. At this time, we will change it to Vashe and Santyl. Unsure if this area itself is the source of her sepsis. This slough is well attached. We will try to get it to come off a little bit more before we try debridement, but she may ultimately require some debridement. I will continue to follow with you. cc: Carlito Goncalves MD
[2018-06-10] MEDS: TYLENOL PO PRN (11:51)
[2018-06-10] MEDS: D5 1/2 NS + KCL 20 MEQ 1,000 ML IV SCH (11:52)
--- NOTE | 2018-06-10 12:48 | INFECTIOUS DISEASE PROGRESS NO ---
DATE: 06/10/2018 PRESENT ILLNESS: The patient has the following infections: Pneumonia, infected sacral and coccyx decubitus ulcer with osteomyelitis, urinary tract infection, and possible bacteremia. MEDICATIONS: This is day 1 of treatment with the combination of vancomycin and meropenem. PHYSICAL EXAMINATION: Vital Signs: Temperature earlier was 102 degrees, now it is 100 degrees, pulse 106, respirations 9, blood pressure 137/80. General: This is a chronically ill-appearing, middle-aged female. She appears to be in no acute distress. Head eyes, ears, nose and throat: She can hear my spoken words. She is able to see as manifested by the fact that she tracks with her eyes. She does not have any white coating on her tongue. Neck: The patient has a tracheostomy in place. Lungs: Clear to auscultation. Cardiovascular: Heart rate is regular. Abdomen: Soft and nontender. There is a G-tube in place. The site is not erythematous or draining. Neurologic: The patient is awake. She followed request to move her extremities and to open her mouth. She does not have a tremor. LAB AND RADIOLOGY: None for today. ASSESSMENT AND PLAN: The patient appears to have pneumonia, a urinary tract infection, an infected sacral decubitus with osteomyelitis, and possible bacteremia. My plan is to continue with the current antibiotics pending culture results. There was no other lab for today. Also for the beginning of next week, I am ordering a CBC, BMP, and portable chest x-ray. COMORBIDITIES: Include she has multi-infarct dementia. She has had a cardiac arrest and resuscitation. She has had chronic respiratory failure, diabetes mellitus and hepatitis C positive. cc: Manav Zarco MD [facility]
--- NOTE | 2018-06-10 15:21 | PROGRESS NOTE ---
DATE: 06/10/2018 SUBJECTIVE: The patient this morning is in the ICU. She refers to be feeling fairly okay. No new complaints. Per the nursing staff no acute changes. OBJECTIVE: Vital signs: Blood pressure is 140/89, pulse of 116, temperature is 100.5, respiration rate of 38, the patient was saturating 100% on trach collar. General: Ms. Marrero is a 52-year-old female, she is in bed, she does not seems to be in any distress. HEENT: Mucosa is pink and moist. Anicteric. Acyanotic. Neck: Supple. Tracheostomy is in place. Chest: Air entry is bilaterally reduced. A few crackles posteriorly. Cardiovascular: Tachycardic but no murmurs, no rubs. Gastrointestinal: Abdomen is soft. PEG tube is in place. Bowel sounds present. Extremities: No pedal edema. Joshua catheter is in place. 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 LABORATORY DATA: WBC is down to 16.56, hemoglobin is 7.4, platelet count of 252,000. Chemistry is also reviewed. Sodium is 152, potassium is 3.7, chloride is 114, creatinine is down to 1.2, BUN is also down to 71. Liver enzymes are minimally elevated. Both urine and blood cultures are showing gram-negative rods. ASSESSMENT: 1. Septic shock on presentation. The patient has been fluid resuscitated, did not need any pressors. We will continue with the current antibiotics. So far blood cultures is showing gram-negative bianca bacteremia. 2. Gram-negative bianca urinary tract infection with bacteremia. The patient did have a previous urine culture which was Acinetobacter baumannii complex. I suspect it is the same pathogen as now, would however still have to wait on the infectious disease and sensitivity. 3. Suspected bilateral pneumonia. We will continue with the antibiotics. 4. Stage IV decubitus ulcer with osteomyelitis. Surgery has been consulted as well as Wound Care. We will continue with the antibiotics. 5. Acute renal failure. Creatinine is on downward trend. The patient is also making adequate urine. We will continue with the fluids. 6. Hypernatremia with hyperchloremia secondary to the type of fluid. We have changed the normal saline to D5 half-normal saline with potassium, and we will recheck on her electrolytes in the morning. 7. Multiple strokes in the past. 8. Chronic hypoxemic respiratory failure. The patient is on a tracheostomy collar. 9. 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 The patient is currently bedbound and is total assistance. So in general Ms. Marrero seems to be fairly stable. Blood pressure is normalized. She continues to be tachycardic and mildly febrile. We are going to continue with the current antibiotic coverage. Infectious Disease is on board and Wound Care is also on board. We will be pending the gram-negative bianca infectious disease and sensitivity on the blood culture as well as the urine culture and make changes to the antibiotics accordingly. cc: Idris Dick MD MTDD
[2018-06-10] MEDS ORDERED: VANCOMYCIN 1,200 MG in NS 250 ML IV SCH (18:00)
[2018-06-10] MEDS: LIPITOR PEG SCH (20:13)
[2018-06-10] MEDS ORDERED: NS 50 ML ONE (21:07)
[2018-06-10 22:09] LABS: URINE SOURCE CATH
[2018-06-10 22:48] LABS: BILIRUBIN URINE NEGATIVE (NEGATIVE); BLOOD URINE SMALL (NEGATIVE); COLOR ORANGE; GLUCOSE URINE 200 mg/dL (NEGATIVE); KETONE URINE NEGATIVE (NEGATIVE); LEUKOCYTES URINE LARGE (NEGATIVE); NITRITE URINE NEGATIVE (NEGATIVE); PROTEIN URINE 100 mg/dL (NEGATIVE); SP GRAVITY URINE 1.013; TURBIDITY URINE TURBID (CLEAR); UROBILINOGEN URINE NORMAL (NORMAL)
[2018-06-10 22:51] LABS: UR EPITHELIAL CELLS >10 /HPF (<10); URINE BACTERIA NEGATIVE /HPF; URINE RBC 20-40 /HPF (<10); URINE WBC TNTC /HPF (<10)
[2018-06-10 22:55] LABS: URINE CASTS NONE SEEN; URINE CRYSTALS NONE SEEN; URINE SMALL ROUND CELLS RENAL PRESENT; URINE YEAST PRESENT
[2018-06-11] MEDS: TYLENOL PO PRN ×2 (00:41→23:43)
[2018-06-11] MEDS: D5 1/2 NS + KCL 20 MEQ 1,000 ML IV SCH ×2 (01:13→13:46)
[2018-06-11] MEDS: HEPARIN SUBQ SCH ×3 (02:46→17:46)
[2018-06-11] MEDS: XOPENEX NEB INH SCH ×7 (03:48→22:47)
[2018-06-11] MEDS: MERREM 500 MG in NS 50 ML IV SCH ×3 (05:28→21:07)
[2018-06-11] MEDS: HUMALOG SUBQ SCH ×4 (06:25→20:14)
[2018-06-11 06:54] LABS: AGAP 12; ALB/GLOB RATIO 0.6; ALBUMIN 2.6 g/dL (3.5-5.0); ALKALINE PHOSPHATASE 195 U/L (32-104); BUN 48 mg/dL (8-22); CHLORIDE 115 mmol/L (98-107); COSMO 326; CREATININE 0.9 mg/dL (0.5-0.9); ESTIMATED GFR > 60; GLUCOSE 314 mg/dL (70-104); GOT 29 U/L (10-30); GPT 35 U/L (10-36); POTASSIUM 4.2 mmol/L (3.5-5.1); SODIUM 152 mmol/L (136-145); TCO2 25 mmol/L (25-35); TOTAL BILIRUBIN 0.19 mg/dL (0.20-1.00); TOTAL PROTEIN 7.3 g/dL (6.3-8.3)
[2018-06-11] MEDS: SANTYL OINT TOP SCH (08:29)
[2018-06-11] MEDS: PLAVIX PEG SCH (08:30)
[2018-06-11] MEDS: SINGULAIR PEG SCH (08:30)
[2018-06-11] MEDS: BASAGLAR SUBQ SCH (08:30)
[2018-06-11] MEDS: PERIDEX MISC SCH ×2 (08:30→20:14)
[2018-06-11 09:07] LABS: BASO# 0.03 X1000 (0.0-0.2); BASO% 0.2 % (0.0-0.8); EOS# 0.02 X1000 (0.0-0.7); EOS% 0.1 % (0.0-10.0); HEMATOCRIT 25.3 % (37.0-47.0); HEMOGLOBIN 7.8 g/dL (12.0-16.0); IMM GRAN# 0.05 X1000 (0.0-0.04); IMM GRAN% 0.3 % (0.0-0.5); LYMPH# 1.57 X1000 (1.2-3.4); LYMPH% 10.2 % (20.5-51.1); MCH 29.3 PG (27-31); MCHC 30.8 g/dL (33-37); MCV 95.1 FL (81-99); MONO# 1.52 X1000 (0.11-0.59); MONO% 9.9 % (1.7-9.3); MPV 12.3 FL (7.4-10.4); NEUT# 12.13 X1000 (1.4-6.5); NEUT% 79.3 % (42.2-75.2); PLT 259 X1000 (130-400); RBC 2.66 XMIL (4.2-5.4); RDW 14.6 % (11.5-14.5); WBC 15.32 X1000 (4.8-10.8)
[2018-06-11] MEDS: MIRALAX PEG SCH ×2 (09:42→21:12)
--- NOTE | 2018-06-11 12:32 | PROGRESS NOTE ---
DATE: 06/11/2018 SUBJECTIVE: This morning Ms. Marrero is seen in the ICU. She refers to be doing fairly okay. There were no new complaints, and no family member was at the bedside at the time of the encounter. OBJECTIVE: On general exam, Ms. Marrero is a 52-year-old female. She was in bed, still with a tracheostomy collar for oxygen needs. Mucosa is slightly dry. Anicteric. Acyanotic. Neck is supple. Respiratory System: There is good air entry bilaterally. A few crackles in the posterior lung zimmer. Cardiovascular: Regular rate and rhythm. No murmurs, no rubs, no gallops. Gastrointestinal: Abdomen is soft. PEG tube is in place. Bowel sounds present. Extremities: No pedal edema. Genitourinary: There is a Joshua catheter in place. Central Nervous System: Patient is awake, alert, able to move lower extremities, and she is able to nod yes or no. She, however, has spasticity with hypertonia and atrophies. DIAGNOSTIC STUDIES: CBC is still pending. Sodium is down to 152, potassium is 4.5, chloride is 115, creatinine has normalized in 0.9, BUN is also down to 48. Liver function tests have also normalized. There is no imaging for today. Microbiology data reveals urine culture is positive for Enterobacter cloacae species. The sputum culture is positive for Acinetobacter baumannii. The blood culture is still gram-negative rods and we are awaiting the ID and sensitivity. PATIENT'S CURRENT MEDICATIONS: Have also been reviewed, includin. Atorvastatin 20 mg p.o. 2. Colace. 3. Plavix 75 daily. 4. Insulin glargine has been increased to 20 units this morning. 5. Meropenem 500 q.8 h. 6. Vancomycin per Pharmacy protocol. 7. D5 with half-normal saline with potassium at 75 mL per hour. 8. Sliding scale insulin has also been increased to moderate scale. ASSESSMENT: 1. Septic shock on presentation, improved. The patient is no more hypotensive. Blood culture is showing gram-negative bianca. We are still pending the ID and sensitivity. 2. Gram-negative bianca Enterobacter cloacae urinary tract infection. We will continue with the current antibiotic coverage 3. Acinetobacter baumannii complex bilateral pneumonia. Patient is currently on antibiotics. Infectious Disease is on board. 4. Stage IV decubitus ulcer with osteomyelitis. Surgery and Wound Care are on board. 5. Acute kidney injury, improved. 6. Hypernatremia with hyperchloremia. Changes have been done to the IV fluids. Sodium is slightly improved. We will continue with the current fluid and the rate. I will repeat her electrolytes for later this afternoon and make changes accordingly. 7. Multiple strokes in the past. Noted. 8. Chronic hypoxemic respiratory failure. Patient is on tracheostomy collar. 9. 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 The patient is bed-bound with total assist. 10. Hyperglycemia, likely due to the dextrose infusion, as well as the patient's tube feedings. We will go up on the insulin regimen for now. In general, Ms. Marrero seems to be fairly stable. Vitals are within normal range. She is tolerating her tube feedings. She is currently on antibiotics. We will continue with those and repeat her electrolytes this afternoon and make changes accordingly. Ms. Marrero will continue to be in the ICU. cc: Idris Dick MD
--- NOTE | 2018-06-11 13:16 | GENERAL SURGERY PROGRESS NOTE ---
DATE: 06/11/2018 SUBJECTIVE: Patient doing about the same. OBJECTIVE: Vital Signs: Most recent temperature was 98.4 degrees, most recent pulse 90, respiratory rate 27, blood pressure 137/39. General: Resting. Cardiovascular: Regular rate and rhythm. Lungs: Grossly clear. Abdomen: Soft, nontender, nondistended. Back: Sacral pressure ulcer looks like it is slightly improved, still with some slough. Replaced the dressing. ASSESSMENT AND PLAN: A 52-year-old with pressure ulcers in the sacrum. 1. Pressure ulcer to sacrum. At this time, continue local wound care. 2. We will monitor. cc: Carlito Goncalves MD
[2018-06-11 15:02] LABS: AGAP 7; BUN 45 mg/dL (8-22); CALCIUM 8.9 mg/dL (8.8-10.2); CHLORIDE 119 mmol/L (98-107); COSMO 321; CREATININE 0.8 mg/dL (0.5-0.9); ESTIMATED GFR > 60; GLUCOSE 277 mg/dL (70-104); SODIUM 151 mmol/L (136-145); TCO2 25 mmol/L (25-35)
[2018-06-11] MEDS: D5W 1,000 ML IV SCH (15:57)
[2018-06-11] MEDS ORDERED: VANCOMYCIN 1,100 MG in NS 250 ML IV SCH (18:00)
[2018-06-11] MEDS ORDERED: VANCOMYCIN 1 GM/NS 1 GM/250 ML IVPB IV SCH (18:00)
[2018-06-11] MEDS: LIPITOR PEG SCH (20:14)
[2018-06-12] MEDS: HEPARIN SUBQ SCH ×2 (02:21→10:14)
[2018-06-12] MEDS: XOPENEX NEB INH SCH ×6 (03:10→23:25)
[2018-06-12] MEDS: MERREM 500 MG in NS 50 ML IV SCH ×2 (06:04→13:32)
[2018-06-12] MEDS: HUMALOG SUBQ SCH ×3 (06:15→15:27)
[2018-06-12] MEDS: D5W 1,000 ML IV SCH (06:17)
[2018-06-12] MEDS: BASAGLAR SUBQ SCH (07:59)
[2018-06-12] MEDS: PLAVIX PEG SCH (07:59)
[2018-06-12] MEDS: PERIDEX MISC SCH (07:59)
[2018-06-12] MEDS: SINGULAIR PEG SCH (07:59)
[2018-06-12] MEDS: MIRALAX PEG SCH (08:00)
[2018-06-12] MEDS: SANTYL OINT TOP SCH (08:28)
[2018-06-12 10:11] LABS: SODIUM 143 mmol/L (136-145)
[2018-06-12 10:13] LABS: AGAP 8; BUN 42 mg/dL (8-22); CALCIUM 8.4 mg/dL (8.8-10.2); CHLORIDE 112 mmol/L (98-107); COSMO 308; CREATININE 0.7 mg/dL (0.5-0.9); ESTIMATED GFR > 60; GLUCOSE 297 mg/dL (70-104); POTASSIUM 4.2 mmol/L (3.5-5.1); TCO2 24 mmol/L (25-35)
--- NOTE | 2018-06-12 11:07 | PROGRESS NOTE ---
DATE: 06/12/2018 SUBJECTIVE: This morning, Ms. Marrero is fairly stable. No new complaints. OBJECTIVELY: Vital signs: Blood pressure is 148/86, pulse 100, respiration 18, respiration 22, temperature 99.2 degrees. General: Ms. Marrero is a 52-year-old female. She is in bed. She is still on a trach collar, saturating well. HEENT: Mucosa is pink and moist. Anicteric. Acyanotic. Neck: Supple. Trach collar as well. Chest: Good air entry bilateral. A few crackles in the posterior lung zimmer. Cardiovascular: Regular rate and rhythm. No murmurs, no rubs, no gallops. GI: Abdomen soft. There is a PEG tube in place. Extremities: No pedal edema. 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 She is able to nod and blink the eyes. She does have spasticity with hypertonia and atrophies. LABORATORY: Hematologic: No CBC for this morning. Chemistry: Sodium has normalized to 142, creatinine is also down to 0.7, glucose is 279. So far, the patient's sputum did show Acinetobacter baumannii. The urine culture did show Enterobacter cloacae and the gram-negative bianca was still pending the ID and sensitivity. MEDICATIONS: Also have all been reviewed. ASSESSMENT: 1. Hypotension on presentation secondary to septic shock, improved. The patient responded to adequate fluid resuscitation. No pressor needed. 2. Gram-negative bianca bacteremia, presumably from the urine or from pneumonia. We are still awaiting for the ID and sensitivity. 3. Acinetobacter complex bilateral pneumonia. Patient is on antibiotics. ID is on board. 4. 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 We will continue with wound care and surgery is also on board. 5. Acute kidney injury resolved. 6. Multiple strokes in the past. 7. 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 The patient is currently bed-bound, total assist and in a permanent vegetative state. 8. Chronic hypoxemic respiratory failure. Patient is on a trach collar. 9. Hypernatremia, resolved. PLAN: So in general, I think Ms. Marrero seems to be doing a lot better. Hydration status has significantly improved. Acid-base and electrolytes have significantly improved as well. The patient is tolerating her tube feedings. We are going to discontinue the IV fluids and just optimize her daily hydrate needs with boluses and flushes. We will repeat her blood cultures today. We are going to transfer Ms. Marrero from the ICU to regular floor today. cc: Idris Dick MD
[2018-06-13] MEDS: MIRALAX PEG SCH ×3 (00:04→22:00)
[2018-06-13] MEDS: LIPITOR PEG SCH ×2 (00:04→22:00)
[2018-06-13] MEDS: HEPARIN SUBQ SCH ×3 (00:05→16:40)
[2018-06-13] MEDS: PERIDEX MISC SCH ×3 (00:08→22:00)
[2018-06-13] MEDS: MERREM 500 MG in NS 50 ML IV SCH ×2 (00:08→07:58)
[2018-06-13] MEDS: HUMALOG SUBQ SCH ×5 (02:09→22:00)
[2018-06-13] MEDS: XOPENEX NEB INH SCH ×7 (03:38→23:55)
--- NOTE | 2018-06-13 06:56 | Diag Imaging Result Doc PS360 ---
EXAM: CHEST-1 VIEW HISTORY: pneumonia TECHNIQUE: Portable chest single view COMPARISON: 06/08/2018 FINDINGS: The lungs are well expanded. No change in the tracheostomy tube. The heart is not enlarged. The vessels are not distended. There are no infiltrates. No effusion identified. IMPRESSION: No definite pneumonia. Electronically signed by Kian Larios 06/13/2018 6:54 AM
[2018-06-13 07:21] LABS: AGAP 7; BUN 47 mg/dL (8-22); CALCIUM 8.7 mg/dL (8.8-10.2); CHLORIDE 113 mmol/L (98-107); COSMO 312; CREATININE 0.7 mg/dL (0.5-0.9); ESTIMATED GFR > 60; GLUCOSE 336 mg/dL (70-104); POTASSIUM 4.3 mmol/L (3.5-5.1); SODIUM 144 mmol/L (136-145); TCO2 24 mmol/L (25-35)
[2018-06-13 07:31] LABS: BASO# 0.02 X1000 (0.0-0.2); BASO% 0.1 % (0.0-0.8); EOS# 0.07 X1000 (0.0-0.7); EOS% 0.5 % (0.0-10.0); HEMATOCRIT 22.7 % (37.0-47.0); HEMOGLOBIN 7.1 g/dL (12.0-16.0); IMM GRAN# 0.05 X1000 (0.0-0.04); IMM GRAN% 0.3 % (0.0-0.5); LYMPH# 1.62 X1000 (1.2-3.4); LYMPH% 11.1 % (20.5-51.1); MCH 29.2 PG (27-31); MCHC 31.3 g/dL (33-37); MCV 93.4 FL (81-99); MONO# 0.95 X1000 (0.11-0.59); MONO% 6.5 % (1.7-9.3); MPV 11.9 FL (7.4-10.4); NEUT# 11.88 X1000 (1.4-6.5); NEUT% 81.5 % (42.2-75.2); PLT 257 X1000 (130-400); RBC 2.43 XMIL (4.2-5.4); RDW 14.5 % (11.5-14.5); WBC 14.59 X1000 (4.8-10.8)
[2018-06-13] MEDS: SINGULAIR PEG SCH (08:54)
[2018-06-13] MEDS: PLAVIX PEG SCH (08:54)
[2018-06-13] MEDS: SANTYL OINT TOP SCH (08:55)
[2018-06-13] MEDS: BASAGLAR SUBQ SCH (08:57)
--- NOTE | 2018-06-13 11:07 | PROGRESS NOTE ---
DATE: 06/13/2018 SUBJECTIVE: This morning, Ms. Marrero refers to be doing fairly okay. Nurse was at the bedside at the time of the encounter. No new complaints. OBJECTIVE: Vital signs: Blood pressure is 132/59, pulse is 98, respirations 22, temperature 98.5 degrees. General: Ms. Marrero, a 52-year-old female. She is in bed, does not seem to be in any cardiopulmonary distress. Trach is in place. HEENT: Mucosa is pink and moist. Anicteric. Acyanotic. Neck: Supple. Respiratory: There is good air entry bilaterally. A few crackles in the posterior lung zimmer. Cardiovascular: Regular rate and rhythm. No murmurs, no rubs, no gallops. GI: Abdomen is soft. PEG tube is in place. Extremities: No pedal edema. Joshua catheter is also in place. [employer]: Patient is awake, seems to comprehend and follows basic commands. She does have spastic hypertonia and atrophy. INPUT AND OUTPUT: Urine output was 100. She is currently positive balance of 1710, making adequate bowel movement and tolerating her tube feedings. LABORATORY DATA: WBC is 14.59, hemoglobin is 7.1, platelet count of 357,000 chemistry is also reviewed. Sodium is 144, potassium is 4.3, chloride is 113. Renal function has normalized. Repeat blood culture yesterday has been unremarkable. ASSESSMENT: 1. Septic shock on presentation, improved. The patient did not need any pressor. She responded well to fluid resuscitation. 2. Bacteroides fragilis bacteremia. This was 1/2. A repeat blood culture has also been ordered. We will be pending on the results. 3. Acinetobacter complex bilateral pneumonia. Patient is on IV antibiotics. 4. 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 Wound Care is on board and Surgery as well. The wound culture from the left buttocks is showing diphtheroids. 5. Acute kidney injury, resolved with adequate hydration. 6. 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 The patient is currently bedbound, has a trach and PEG. 7. Chronic hypoxemic respiratory failure. Patient is on trach collar for oxygenation. 8. Hypernatremia, resolved. 9. Iron deficiency anemia. Hemoglobin and hematocrit is down to 7.1. PLAN: So Ms. Marrero is a 52 years old woman who is a resident of [facility], presented to the hospital on 06/08/2018 mainly because of fever. She was found to be hypotensive and septic. She was initially admitted to the ICU adequately fluid resuscitated. She seems to be doing well. We will be pending the repeat blood culture results and final antibiotic choice and duration of treatment from Infectious Disease and hopefully discharge her tomorrow or whenever is feasible with Infectious Disease. We are going to continue to replace patient iron, and repeat the hemoglobin for tomorrow. If it drops below 7, we will transfuse. cc: Idris Dick MD
[2018-06-13] MEDS ORDERED: VENOFER 200 MG in NS 100 ML IV ONE (11:30)
[2018-06-13 12:07] LABS: HEMOGLOBIN A1C 7.2 % (4.8-6.0)
--- NOTE | 2018-06-13 17:06 | INFECTIOUS DISEASE PROGRESS NO ---
DATE: 06/13/2018 PRESENT ILLNESS: Ms. Marrero has an infected sacral and coccyx decubitus with osteomyelitis that grew diptheroids. There is also an Enterobacter urinary tract infection, and Acinetobacter baumannii growing in her sputum, which has most likely colonized. The patient has no infiltrates on the x-ray today, so the pneumonia has resolved. There is also Bacteroides fragilis bacteremia. She initially came in with acute kidney injury, however her kidney function has normalized. MEDICATIONS: She has been receiving meropenem 500 mg IV every 8 hours for the last 2 days. PHYSICAL EXAMINATION: Vital Signs: Temperature is 98.9 degrees, pulse rate 72, respiratory rate 24, blood pressure 127/63, O2 saturation is 94% on a trach collar. General: This is a chronically ill-appearing, middle-aged female. She is lying in the bed currently in no acute distress. Neck: Tracheostomy in place without any edema or erythema noted to the site. HEENT: Atraumatic, normocephalic. Oral mucous membranes are pink and moist. Conjunctivae are pale. Cardiovascular: Heart rate and rhythm are regular and tachycardic. Sinus tach on the monitor. Respiratory: Lung sounds are clear to auscultation bilaterally, diminished in the bases. Abdomen: Soft, round and nontender. Bowel sounds are active. PEG tube site is without any edema or erythema. She is receiving tube feedings. Neurologic: She is awake, alert, and able to follow commands and mouth words. LABORATORY AND X-RAY: Today, her white count is down to 14.59, hemoglobin 7.1, platelet count 257,000. Creatinine is 0.7, estimated GFR is greater than 60. No hepatic enzymes today, however, on the her bilirubin was 0.19, AST 29, ALT 35, alkaline phosphatase 195. She has a set of blood cultures which are pending that were drawn yesterday. Her most recent urine culture has shown no growth. Previously, her urine culture grew Enterobacter cloacae and 1/2 blood cultures grew Bacteroides fragilis. There is also an Acinetobacter baumannii in her sputum. Chest x-ray today shows no definite pneumonia. ASSESSMENT AND PLAN: Ms. Marrero has been receiving meropenem for the numerous infections which include a bacteremia, urinary tract infection and sputum infection. At this point, there is no pneumonia and the Acinetobacter most likely is colonized in her sputum. She does have a Bacteroides which is significant as a bacteremia in 1 of 2 blood cultures, and Enterobacter in her urine. After reviewing all the susceptibilities, the best choice is already in place which is meropenem, however, we will increase that dose now that her acute kidney injury has resolved. She will now receive 1 g of meropenem every 8 hours. These plans have been discussed with and recommended by Dr. Zarco. COMORBIDITIES: For Ms. Marrero include dementia, cardiac arrest, chronic respiratory failure, diabetes mellitus, and hepatitis C. Dictated by STEPHEN Acevedo for Manav Zarco MD This chart was documented by, STEPHEN Acevedo and accurately reflects the services performed, treatment plan and medical decisions as attested by the providers signature Manav Zarco MD. cc: Manav Zarco MD [facility]
[2018-06-13] MEDS: MERREM 1 GM in NS 50 ML IV SCH (17:15)
[2018-06-13] MEDS: FEOSOL LIQUID PEG SCH (22:00)
[2018-06-14] MEDS: HEPARIN SUBQ SCH ×4 (00:52→23:36)
[2018-06-14] MEDS: MERREM 1 GM in NS 50 ML IV SCH ×4 (00:53→23:33)
[2018-06-14] MEDS: XOPENEX NEB INH SCH ×6 (03:50→23:10)
[2018-06-14] MEDS: TYLENOL PO PRN (05:00)
[2018-06-14] MEDS: HUMALOG SUBQ SCH ×4 (06:51→23:34)
[2018-06-14 06:59] LABS: BASO# 0.02 X1000 (0.0-0.2); BASO% 0.1 % (0.0-0.8); EOS# 0.08 X1000 (0.0-0.7); EOS% 0.4 % (0.0-10.0); HEMATOCRIT 23.9 % (37.0-47.0); HEMOGLOBIN 7.5 g/dL (12.0-16.0); IMM GRAN# 0.07 X1000 (0.0-0.04); IMM GRAN% 0.4 % (0.0-0.5); LYMPH% 6.9 % (20.5-51.1); MCH 29.4 PG (27-31); MCHC 31.4 g/dL (33-37); MCV 93.7 FL (81-99); MONO# 0.92 X1000 (0.11-0.59); MONO% 4.9 % (1.7-9.3); MPV 11.7 FL (7.4-10.4); NEUT% 87.3 % (42.2-75.2); PLT 314 X1000 (130-400); RBC 2.55 XMIL (4.2-5.4); RDW 14.3 % (11.5-14.5); WBC 18.89 X1000 (4.8-10.8)
[2018-06-14 07:06] LABS: AGAP 9; ALB/GLOB RATIO 0.6; ALBUMIN 2.4 g/dL (3.5-5.0); ALKALINE PHOSPHATASE 191 U/L (32-104); BUN 42 mg/dL (8-22); CALCIUM 8.6 mg/dL (8.8-10.2); CHLORIDE 112 mmol/L (98-107); COSMO 314; CREATININE 0.7 mg/dL (0.5-0.9); ESTIMATED GFR > 60; GLUCOSE 338 mg/dL (70-104); GOT 21 U/L (10-30); GPT 30 U/L (10-36); POTASSIUM 4.1 mmol/L (3.5-5.1); SODIUM 146 mmol/L (136-145); TCO2 25 mmol/L (25-35); TOTAL PROTEIN 6.7 g/dL (6.3-8.3)
--- NOTE | 2018-06-14 09:46 | PROGRESS NOTE ---
DATE: 06/14/2018 SUBJECTIVE: Ms. Marrero was awake. She seemed to make eye contact. She did not answer any questions, but appears to be comfortable, breathing comfortably. She was admitted on 06/09/2018. She is a patient of Dr. Krunal Grant. A 52-year-old with history of poly-infarct dementia, chronic respiratory failure, and tracheostomy, who is chronically bedbound. Admission before this was on 04/03/2018 for presumed sepsis. Returned for basically the same thing, tachycardia, febrile. Came from [facility]. PAST MEDICAL HISTORY: 1. Multi-infarct dementia with chronic bedbound state. 2. Status post cardiac arrest, now with chronic respiratory failure and tracheostomy tube and a PEG tube as well. 3. Bilateral iliac muscle abscess. 4. Asthma. 5. Hyperlipidemia. 6. Osteoarthritis. 7. Diabetes mellitus, insulin dependent. 8. Hypertension. 9. MRSA tracheitis. 10. Sepsis. Previous culture growing out Acinetobacter pneumonia and Pantoea bacteremia. 11. She is a DO NOT RESUSCITATE code status. 12. Positive for hepatitis C. OBJECTIVE: General: Today, appears comfortable. Vital Signs: Remains afebrile, temperature 99.7 degrees, pulse 104, respirations 16, blood pressure 138/61. HEENT: Her pupils are equal. Neck: No distended neck veins. Lungs: Anterolaterally clear. Cardiovascular: Regular rhythm and rate without murmur or S3. Abdomen: Soft. Skin: Warm and dry. Urine output: I am not sure we have an accurate measurement, but 180 mL. ASSESSMENT AND PLAN: 1. Infected sacral coccyx decubitus with osteomyelitis. She grew diphtheroids and Enterobacter urinary tract infection, and Acinetobacter baumannii grew in her sputum, which is most likely colonized. No infiltrates on the x-ray yesterday, so pneumonia appears resolved. She has Bacteroides fragilis bacteremia, and came in with acute kidney injury, so getting meropenem 500 mg intravenously every 8 hours. 2. Presented with septic shock, and this seems to be better following fluid resuscitation. 3. Acinetobacter complex bilateral pneumonia, which appears resolved. 4. Stage IV decubitus ulcers with sacral osteomyelitis. Continue present wound care. Surgery is following. 5. Acute kidney injury, which is improving with hydration. 6. 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 She has a tracheostomy and percutaneous endoscopic gastrostomy tube. 7. Chronic hypoxemic failure. She has a tracheostomy collar for oxygenation. 8. Hyponatremia, which is resolved. 9. Iron-deficiency anemia. Will continue to watch hemoglobin and hematocrit. Will transfuse if hemoglobin gets below 7. Continue present measures. LABORATORY DATA: This morning, white count elevated at 18,890, hematocrit 23, hemoglobin 7.5, platelet count 314,000. Electrolytes: Sodium 146, potassium 4.1, chloride 112, BUN 42, creatinine 0.7. Blood sugars have been 328, 213, 221, and 212. REVIEW OF ORDERS: She is on Lipitor 20 mg at bedtime, Plavix 75 mg a day, ferrous sulfate 220 mg per PEG tube b.i.d., meropenem 1 gram IV every 8 hours, MiraLAX 17 grams per PEG tube b.i.d., and she got an IV dose of iron sucrose on 06/13/2018, yesterday. cc: Willian Cabezas MD
[2018-06-14] MEDS: SANTYL OINT TOP SCH (10:00)
[2018-06-14] MEDS: FEOSOL LIQUID PEG SCH ×2 (10:36→23:34)
[2018-06-14] MEDS: PLAVIX PEG SCH (10:37)
[2018-06-14] MEDS: SINGULAIR PEG SCH (10:37)
[2018-06-14] MEDS: PERIDEX MISC SCH ×2 (10:38→23:34)
[2018-06-14] MEDS: BASAGLAR SUBQ SCH (10:40)
[2018-06-14] MEDS: MIRALAX PEG SCH ×2 (10:40→23:34)
--- NOTE | 2018-06-14 13:41 | INFECTIOUS DISEASE PROGRESS NO ---
DATE: 06/14/2018 PRESENT ILLNESS: The patient has a right buttock large decubitus ulcer. I think this is where the patient's Bacteroides bacteremia originated from. She also has an Enterobacter urinary tract infection, and she does have an Acinetobacter growing in her sputum. However, since the last chest x-ray did not show any infiltrates, the Acinetobacter appears to be a colonizer but not a pathogen at this time. MEDICATIONS: The patient is receiving meropenem. The dose currently is 1 g IV every 8 hours. This is day 3 of treatment with the antibiotic. PHYSICAL EXAMINATION: Vital Signs: Temperature is 97.8 degrees, pulse 81, respirations 16, blood pressure 142/80. General: This is an ill-appearing middle-aged female. She is in no acute distress. Head, eyes, ears, nose, and throat: No drainage noted from the nose or ears. I was unable to get a good look at her mouth. Neck: The patient has a tracheostomy in place. Lungs: Clear to auscultation. Cardiovascular: Heart rate is regular. Abdomen: Soft and nontender. A G-tube is in place. The site is not erythematous or purulent. Pelvis: On the right buttock, there is a large ulcerated area that is covered by devitalized tissue. Neurologic: Patient is awake. She did not follow requests to move her extremities. DIAGNOSTIC STUDIES: There is no new radiographic study. Lab results show a CBC with a white count of 18,890, hemoglobin 7.5, and platelet count 314,000. Creatinine is 0.7, GFR is greater than 60, alkaline phosphatase is 191. Repeat blood cultures are negative. Earlier, they were positive for Bacteroides fragilis. The patient's urine culture grew Enterobacter. The sputum grew Acinetobacter, which I think represents a colonizer rather than pathogen because the patient's last chest x-ray shows no infiltrates. Repeat blood and urine cultures are negative. ASSESSMENT AND PLAN: The patient has an infected large buttock decubitus ulcer which extends to the bone, resulting in osteomyelitis. Her white count did go up quite a bit today, and the exact reason why did is uncertain to me. We have already ordered repeat blood and urine cultures. I am going to repeat the patient's chest x-ray to see if that has improved. Repeat blood and urine cultures are pending. I am going to continue with meropenem. Also I am going to repeat the patient's CBC tomorrow. COMORBIDITIES: 1. Dementia. 2. Cardiac arrest. 3. Chronic respiratory failure. 4. Diabetes mellitus. 5. Hepatitis C. cc: Manav Zarco MD
[2018-06-14] MEDS: LIPITOR PEG SCH (23:33)
[2018-06-15] MEDS: XOPENEX NEB INH SCH ×6 (03:10→23:30)
--- NOTE | 2018-06-15 05:50 | GENERAL SURGERY PROGRESS NOTE ---
DATE: 06/15/2018 SUBJECTIVE: The patient is doing okay. She has been transferred from the ICU to the floor since last time I saw her. OBJECTIVE: Vital Signs: Patient is currently with temperature of 100.1 degrees, pulse remains slightly tachycardic in the 110s, but blood pressure remains stable. General: No acute distress, but appears chronically ill. HEENT: Normocephalic, atraumatic. Pupils equal, round, and reactive to light. Mucous membranes are moist. Oropharynx benign. Neck: Tracheostomy in place. Cardiovascular: Some mild tachycardia. Lungs: Some referred airway noises. Abdomen: Soft, nontender, nondistended. Skin: Gluteal region with stage IV pressure ulcer. It looks essentially unchanged to me. The slough is still well attached to the underlying wound bed, does not necessarily look any worse. No active drainage. Extremities: No edema. Vascular: All extremities perfused. LABORATORY: None this morning as of yet. ASSESSMENT AND PLAN: A 52-year-old female with stage IV pressure ulcer. Stage IV pressure ulcer: At this time continue local wound care. The slough is still well attached, so it does not want to easily go for debridement. I would recommend continued enzymatic debridement with the Santyl for right now. cc: Carlito Goncalves MD
[2018-06-15] MEDS: MERREM 1 GM in NS 50 ML IV SCH ×2 (06:43→16:17)
[2018-06-15] MEDS: HUMALOG SUBQ SCH ×4 (06:43→23:09)
[2018-06-15 07:01] LABS: BASO# 0.03 X1000 (0.0-0.2); BASO% 0.2 % (0.0-0.8); EOS# 0.08 X1000 (0.0-0.7); EOS% 0.5 % (0.0-10.0); HEMATOCRIT 24.4 % (37.0-47.0); HEMOGLOBIN 7.4 g/dL (12.0-16.0); IMM GRAN# 0.06 X1000 (0.0-0.04); IMM GRAN% 0.3 % (0.0-0.5); LYMPH# 1.66 X1000 (1.2-3.4); LYMPH% 9.5 % (20.5-51.1); MCH 28.8 PG (27-31); MCHC 30.3 g/dL (33-37); MCV 94.9 FL (81-99); MONO# 0.78 X1000 (0.11-0.59); MONO% 4.5 % (1.7-9.3); MPV 11.6 FL (7.4-10.4); NEUT# 14.84 X1000 (1.4-6.5); PLT 382 X1000 (130-400); RBC 2.57 XMIL (4.2-5.4); RDW 14.6 % (11.5-14.5); WBC 17.45 X1000 (4.8-10.8)
--- NOTE | 2018-06-15 07:07 | Diag Imaging Result Doc PS360 ---
EXAM: CHEST-1 VIEW HISTORY: pneumonia TECHNIQUE: Chest single view COMPARISON: 06/13/2018 FINDINGS: There is a tracheostomy tube. The lungs are poorly expanded. No cardiomegaly. No consolidation. No pleural effusions identified. Mild vascular distention. IMPRESSION: No pneumonia identified. Electronically signed by Kian Larios 06/15/2018 7:04 AM
[2018-06-15] MEDS: BASAGLAR SUBQ SCH (09:19)
[2018-06-15] MEDS: HEPARIN SUBQ SCH ×3 (09:21→23:08)
[2018-06-15] MEDS: FEOSOL LIQUID PEG SCH ×2 (09:22→23:09)
[2018-06-15] MEDS: PLAVIX PEG SCH (09:23)
[2018-06-15] MEDS: MIRALAX PEG SCH ×2 (09:23→23:09)
[2018-06-15] MEDS: PERIDEX MISC SCH ×2 (09:24→23:09)
[2018-06-15] MEDS: SINGULAIR PEG SCH (09:24)
--- NOTE | 2018-06-15 09:50 | INFECTIOUS DISEASE PROGRESS NO ---
DATE: 06/15/2018 PRESENT ILLNESS: The patient has a right buttock large decubitus ulcer. She also has a Bacteroides bacteremia, which I think could have originated from that ulcer. She has an Enterobacter urinary tract infection. She previously has had Acinetobacter growing from her sputum. However, the chest x-ray did not see any infiltrate, so the Acinetobacter may be a colonizer, but not a pathogen currently. MEDICATIONS: The patient has been on meropenem now for 4 days. PHYSICAL EXAMINATION: Vital Signs: Temperature is 99.6 degrees, pulse 115, respirations 18, blood pressure 133/65. General: This is an ill-appearing, middle-aged female. She is in no acute distress. Head/eyes/ears/nose/throat: She does not have any drainage from her nose or ears. I could not get a good look at her mouth. Neck: The patient has a tracheostomy in place. Lungs: Clear to auscultation. Cardiovascular: Heart rate is regular. Abdomen: Soft and nontender. She has a G-tube in place. There is no erythema or purulence around the tube. Pelvis: As mentioned above, the patient has a large decubitus ulcer that is covered with devitalized tissue. Neurologic: Patient is awake. She can move her extremities. There is no tremor. LABORATORY AND RADIOLOGY: CBC today shows a white count of 17,450, hemoglobin 7.4, and platelet count 382,000. Chest x-ray shows no pneumonia. ASSESSMENT AND PLAN: 1. I discussed the situation with Dr. Goncalves. Our plan is to get a CT scan of the abdomen and pelvis and see if there is especially some abscess where the buttock decubitus ulcer is which could explain why the patient became bacteremic with Bacteroides and why she continues to have an elevated white count despite being on meropenem. 2. Comorbidities: She has dementia. She has had a cardiac arrest, chronic respiratory failure, diabetes mellitus, and hepatitis C. cc: Manav Zarco MD
--- NOTE | 2018-06-15 12:22 | PROGRESS NOTE ---
DATE: 06/15/2018 SUBJECTIVE: Ms. Marrero is awake. She appears comfortable. They just finished her bath. She is breathing comfortably. OBJECTIVE: Vital signs: Temperature 98 degrees, pulse 110, respirations 24 and blood pressure 149/73. HEENT: Pupils are equal and round. Neck: No distended neck veins. Lungs: Clear in all lung zimmer. Cardiovascular: Regular rhythm and rate without murmur or S3. Abdomen: Soft. Skin is warm and dry. Genitourinary: Urine output is 1800 mL. ASSESSMENT AND PLAN: 1. On the right buttock, large decubitus ulcer has Bacteroides bacteremia and still elevated white count. This could be originating from that ulcer as Enterobacter urinary tract infection previously had asked Acinetobacter growing from her sputum. Chest x-ray does not show any infiltrate and so Acinetobacter Dr. Zarco feels could be colonizing. The patient on meropenem now for 4 days, continue. I think the plan is to get a CT of her leg and see if there is any subcutaneous abscess. She has a stage IV pressure ulcer so we will continue local wound care. 2. Acinetobacter complex bilateral pneumonia, could be colonization as well. 3. Acute kidney injury which is improved with hydration. 4. Vegetative state, previous cardiac arrest, multiple strokes. She has a tracheostomy, percutaneous endoscopic gastric gastrostomy tube. 5. Hyponatremia which is improved. 6. Iron deficiency anemia. Continue to watch her hemoglobin and hematocrit. LABORATORY DATA: Today white count 26189, hematocrit 24, hemoglobin is 7.4, platelet count is 382,000 blood sugar 193, 260, 179. REVIEW OF HER ORDERS: I do not see any change at this point. She is on Lipitor 20 mg at bedtime, Tylenol 650 q.6 hours, Dulcolax 10 mg per rectum p.r.n., Plavix 75 mg a day, ferrous sulfate 220 mg per PEG tube b.i.d., heparin 5000 units subcutaneously q.8 hours, insulin glargine 25 units subcutaneous q.a.m., Xopenex inhalation treatments q.4 hours p.r.n., meropenem 1 g q.8 hours, Reglan 10 mg per PEG tube q.8 hours p.r.n., Singulair 10 mg per PEG tube daily, and polyethylene glycol 17 g per PEG tube b.i.d. cc: Willian Cabezas MD [facility]
[2018-06-15 12:29] LABS: AGAP 9; ALB/GLOB RATIO 0.6; ALBUMIN 2.5 g/dL (3.5-5.0); ALKALINE PHOSPHATASE 191 U/L (32-104); BUN 40 mg/dL (8-22); CALCIUM 8.6 mg/dL (8.8-10.2); CHLORIDE 116 mmol/L (98-107); COSMO 320; CREATININE 0.7 mg/dL (0.5-0.9); ESTIMATED GFR > 60; GLUCOSE 254 mg/dL (70-104); GOT 34 U/L (10-30); GPT 37 U/L (10-36); MAGNESIUM 2.4 mg/dL (1.5-2.7); PHOSPHORUS 2.6 mg/dL (2.7-4.5); POTASSIUM 4.6 mmol/L (3.5-5.1); SODIUM 152 mmol/L (136-145); TCO2 27 mmol/L (25-35); TOTAL BILIRUBIN 0.17 mg/dL (0.20-1.00); TOTAL PROTEIN 6.7 g/dL (6.3-8.3)
--- NOTE | 2018-06-15 13:16 | Diag Imaging Result Doc PS360 ---
EXAM: CT ABD/PELVIS W/IV CONT ONLY INDICATION: abscess TECHNIQUE: This exam was performed using automated exposure control, adjustment of mA or kV according to patient size, and/or use of iterative reconstruction technique. COMPARISON: 06/09/2018 FINDINGS: There is mild subsegmental atelectasis at the lung bases. There has been a prior cholecystectomy. The liver, spleen, pancreas, and adrenal glands are unremarkable. The kidneys appear normal. The urinary bladder is unremarkable. The G-tube is in stable position. The remainder of the GI tract is essentially unremarkable. The sacral decubitus ulcer seen on the previous study is again identified. There is less soft tissue gas associated with the ulceration as compared to the previous study. There are vague erosive changes involving the lower sacrum and coccyx compatible with osteomyelitis. There is presacral soft tissue edema similar to the previous study as well. No organized abscess can be identified, however. IMPRESSION: 1.Decubitus ulcer overlying the sacrum with underlying osteomyelitis similar to the previous study. However, there is less soft tissue gas. 2.No evidence of organized abscess. Electronically signed by Feliciano Ruiz 06/15/2018 1:13 PM
[2018-06-15] MEDS: SANTYL OINT TOP SCH (13:30)
[2018-06-15] MEDS: LIPITOR PEG SCH (23:08)
[2018-06-16] MEDS: MERREM 1 GM in NS 50 ML IV SCH ×4 (01:45→23:38)
[2018-06-16] MEDS: XOPENEX NEB INH SCH ×6 (03:40→23:40)
--- NOTE | 2018-06-16 05:44 | GENERAL SURGERY PROGRESS NOTE ---
DATE: 06/16/2018 SUBJECTIVE: Reviewed CT scan after having a discussion with Dr. Zarco. There does not appear to be any obvious undrained abscess, she likely has some degree of osteomyelitis of her sacrum. At this point recommend continue local wound care. No other obvious etiology noted for infectious process in the abdomen. We will continue local wound care. cc: Carlito Goncalves MD
[2018-06-16] MEDS: HUMALOG SUBQ SCH ×4 (06:39→23:37)
[2018-06-16] MEDS ORDERED: INSULIN PEN NEEDLES ONE (08:01)
[2018-06-16] MEDS: MIRALAX PEG SCH ×2 (08:58→23:46)
[2018-06-16] MEDS: FEOSOL LIQUID PEG SCH ×2 (08:59→23:37)
[2018-06-16] MEDS: PERIDEX MISC SCH ×2 (08:59→23:37)
[2018-06-16] MEDS: PLAVIX PEG SCH (08:59)
[2018-06-16] MEDS: HEPARIN SUBQ SCH ×3 (08:59→23:38)
[2018-06-16] MEDS: BASAGLAR SUBQ SCH (09:00)
[2018-06-16] MEDS: SINGULAIR PEG SCH (09:00)
[2018-06-16] MEDS: SANTYL OINT TOP SCH (09:02)
--- NOTE | 2018-06-16 10:05 | PROGRESS NOTE ---
DATE: 06/16/2018 SUBJECTIVE: Ms. Marrero is comfortable. She is awake, breathing comfortably, and remains afebrile. OBJECTIVE: Temperature 98.1 degrees, pulse 108, respirations 34, blood pressure 124/51. Pupils are equal and round. Lungs are clear in all lung zimmer. Cardiovascular exam has regular rhythm and rate without murmur or S3. Abdomen is soft. Skin is warm and dry. URINE OUTPUT: 1900 mL. DATA: Blood sugar 260, 135, 239. ASSESSMENT AND PLAN: 1. Continue topical wound care of large right buttock decubitus ulcer. Bacteroides bacteremia, which we feel has originated from the ulcer. She also has Enterobacter urinary tract infection. She had a CT done of her abdomen and pelvis yesterday. Decubitus ulcer overlying the sacrum, underlying osteomyelitis similar to previous study. However, there is less soft tissue gas. No evidence of organized abscess. So, continue present antibiotics. 2. Acute kidney injury, which has improved with hydration. 3. Vegetative state status post cardiac arrest and multiple strokes. She has had a tracheostomy and percutaneous endoscopic gastrostomy tube placed. 4. Hyponatremia, which is improved. Note that white count still yesterday was 17,000, hematocrit 24, hemoglobin 7.4. Creatinine is down to 0.7, sodium was 152 yesterday. 5. Review of orders: I do not see any change. Continue topical care. The patient is on meropenem 1 g IV q.8 h. cc: Willian Cabezas MD
[2018-06-16 11:09] LABS: ESTIMATED GFR > 60
[2018-06-16 11:14] LABS: AGAP 7; ALB/GLOB RATIO 0.6; ALBUMIN 2.3 g/dL (3.5-5.0); ALKALINE PHOSPHATASE 196 U/L (32-104); BUN 48 mg/dL (8-22); CALCIUM 8.8 mg/dL (8.8-10.2); CHLORIDE 121 mmol/L (98-107); COSMO 328; CREATININE 0.8 mg/dL (0.5-0.9); GLUCOSE 172 mg/dL (70-104); GOT 53 U/L (10-30); GPT 48 U/L (10-36); MAGNESIUM 2.6 mg/dL (1.5-2.7); PHOSPHORUS 2.5 mg/dL (2.7-4.5); POTASSIUM 5.2 mmol/L (3.5-5.1); SODIUM 157 mmol/L (136-145); TCO2 29 mmol/L (25-35); TOTAL BILIRUBIN 0.16 mg/dL (0.20-1.00); TOTAL PROTEIN 6.4 g/dL (6.3-8.3)
[2018-06-16] MEDS: TYLENOL PO PRN (14:14)
--- NOTE | 2018-06-16 16:14 | INFECTIOUS DISEASE PROGRESS NO ---
DATE: 06/16/2018 PRESENT ILLNESS: The patient has a sacral decubitus ulcer which may have been the origin of the patient's Bacteroides bacteremia. The CAT scan of the pelvis that showed the sacral decubitus ulcer also showed that the patient has underlying sacral and coccyx osteomyelitis. MEDICATIONS: The patient is on meropenem now for 5 days. PHYSICAL EXAMINATION: Vital Signs: Temperature is 99.6, pulse 111, respirations 16, blood pressure 127/61. General: This is an ill-appearing middle-aged female. She is in no acute distress. Head, Eyes, Ears, Nose and Throat: She does not have any drainage coming from her nose or ears. Neck: She has a tracheostomy in place. Lungs: Clear to auscultation. Cardiovascular: Heart rate is regular. Abdomen: Soft and nontender. The patient has a G-tube in place. There is no erythema or purulence around the G-tube site. Pelvis: The patient has a large sacral decubitus ulcer which extends to bone. The ulcer is covered by a large layer of devitalized tissue. Neurologic: The patient was just lying in bed. She did not make any movements. We had to turn her on her side for me to see the patient's sacral decubitus ulcer. LAB AND X-RAY: CT scan of the pelvis showed among other things, osteomyelitis of the sacrum and coccyx. The alkaline phosphatase is 196. Creatinine is 0.8. GFR is greater than 60. There was no CBC for today. ASSESSMENT AND PLAN: I plan to continue with meropenem and I have also ordered a CBC for tomorrow. COMORBIDITIES: Dementia, cardiac arrest, chronic respiratory failure, diabetes mellitus and hepatitis C. cc: Manav Zarco MD
[2018-06-16] MEDS ORDERED: D50W SYRINGE ONE (17:03)
[2018-06-16] MEDS: LIPITOR PEG SCH (23:37)
[2018-06-17] MEDS: XOPENEX NEB INH SCH ×6 (03:45→23:37)
[2018-06-17] MEDS: MERREM 1 GM in NS 50 ML IV SCH ×2 (06:41→17:51)
[2018-06-17 07:09] LABS: BASO# 0.06 X1000 (0.0-0.2); BASO% 0.3 % (0.0-0.8); EOS# 0.13 X1000 (0.0-0.7); EOS% 0.6 % (0.0-10.0); HEMATOCRIT 23.9 % (37.0-47.0); HEMOGLOBIN 7.2 g/dL (12.0-16.0); LYMPH# 1.68 X1000 (1.2-3.4); LYMPH% 7.9 % (20.5-51.1); MCH 29.9 PG (27-31); MCHC 30.1 g/dL (33-37); MCV 99.2 FL (81-99); MONO# 0.98 X1000 (0.11-0.59); MONO% 4.6 % (1.7-9.3); MPV 11.6 FL (7.4-10.4); NEUT# 18.39 X1000 (1.4-6.5); NEUT% 86.6 % (42.2-75.2); PLT 434 X1000 (130-400); RBC 2.41 XMIL (4.2-5.4); RDW 15.3 % (11.5-14.5); WBC 21.24 X1000 (4.8-10.8)
[2018-06-17 07:34] LABS: ALB/GLOB RATIO 0.6; ALBUMIN 2.4 g/dL (3.5-5.0); CALCIUM 8.2 mg/dL (8.8-10.2); MAGNESIUM 2.8 mg/dL (1.5-2.7); PHOSPHORUS 3.2 mg/dL (2.7-4.5); POTASSIUM 5.4 mmol/L (3.5-5.1); TOTAL BILIRUBIN 0.18 mg/dL (0.20-1.00); TOTAL PROTEIN 6.6 g/dL (6.3-8.3)
[2018-06-17] MEDS: HEPARIN SUBQ SCH ×3 (09:40→23:17)
[2018-06-17] MEDS: SINGULAIR PEG SCH (10:13)
[2018-06-17] MEDS: MIRALAX PEG SCH ×2 (10:13→23:17)
[2018-06-17] MEDS: PLAVIX PEG SCH (10:13)
[2018-06-17] MEDS: BASAGLAR SUBQ SCH (10:13)
[2018-06-17] MEDS: HUMALOG SUBQ SCH ×4 (10:14→23:18)
[2018-06-17] MEDS: PERIDEX MISC SCH ×2 (10:14→23:32)
[2018-06-17] MEDS: FEOSOL LIQUID PEG SCH ×2 (10:14→23:16)
[2018-06-17] MEDS ORDERED: TYLENOL GT PRN (11:49)
--- NOTE | 2018-06-17 12:24 | INFECTIOUS DISEASE PROGRESS NO ---
DATE: 06/17/2018 PRESENT ILLNESS: Ms. Marrero has a sacral decubitus ulcer growing diptheroid, which may be the origin of her Bacteroides bacteremia. That wound also shows an underlying osteomyelitis. The patient has developed a fever of 102 today, and there is an increase in her leukocytosis. MEDICATIONS: She has been receiving meropenem 1 g IV every 8 hours for the last 4 days. PHYSICAL EXAMINATION: Vital Signs: Temperature is 102.2 degrees, pulse rate 124, respiratory rate 16, blood pressure 136/92, O2 saturation is 97% on her tracheostomy collar. HEENT: She is atraumatic, normocephalic. Conjunctivae are pale. Neck: Shows a tracheostomy in place. The site is without any edema or erythema. Lung Sounds: Have wheezes throughout all lung zimmer. Cardiovascular: Heart rate is regular. Abdomen: Soft, round and nontender. There is a G-tube in place. That site is without any erythema or purulence. Integumentary: There is a large decubitus ulcer to the sacral area which has a layer of devitalized tissue and some pus which is draining. Neurologic: She is lying in the bed with her eyes open. She is not responding or following commands at this time. LABORATORY AND X-RAY: Today, her white count is 21.24, hemoglobin 7.2, platelet count 434,000. Creatinine is 1, GFR is 58. Total bilirubin is 0.18, AST 61, ALT 58, alkaline phosphatase is 211. Her previous blood cultures have grown Bacteroides fragilis. Most recently, they have been sterile. Her sacral wound has shown diphtheroids. Sputum has grown Acinetobacter which we think is colonized. The most recent urine culture showed no growth. No imaging reports today. ASSESSMENT AND PLAN: Ms. Marrero is being treated for a Bacteroides bacteremia using meropenem. She has developed a fever and increased leukocytosis. Most recent chest x-ray shows no pneumonia, however, she has been straight cathed for urine, so we will go ahead and get a urinalysis and urine culture with the next straight catheterization. Also we have gotten a re- culture of her wound to the sacrum and did get some pus this time, so we will follow up on the cultures. In the mean time, we will add daptomycin 350 mg IV daily to the meropenem, and also hold her Lipitor for now. These plans have been discussed with and recommended by Dr. Zarco. COMORBIDITIES: For Ms. Marrero include dementia, cardiac arrest, chronic respiratory failure with tracheostomy, diabetes mellitus, and hepatitis C. Dictated by STEPHEN Acevedo for Manav Zarco MD cc: Manav Zarco MD [facility]
--- NOTE | 2018-06-17 12:28 | PROGRESS NOTE ---
DATE: 06/17/2018 SUBJECTIVE: Ms. Marrero was sleeping, resting comfortably. She did have more fever last night. OBJECTIVE: Vital Signs: This morning temperature was 102.2 degrees, pulse 120, respirations 24 and blood pressure 136/92. Eyes: Pupils are equal and round. Lungs: Lungs are clear in all lung zimmer. Cardiovascular exam: Regular rhythm and rate without murmur or S3. Blood sugar 141,204 and 252. ASSESSMENT AND PLAN: 1. Sacral decubitus ulcer which may have been the origin of her bacteremia. She had Bacteroides bacteremia. CT of the pelvis showed a sacral decubitus ulcer, but also showed the patient has underlying sacral and coccyx osteomyelitis, so is on meropenem. This is the fifth day. Continue present antibiotic. 2. Acute kidney injury, which is improved and renal function looks good. 3. 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 Has a tracheostomy, percutaneous endoscopic gastrostomy tube. 4. Nutrition: Continue her feeding. 5. Hyponatremia, which is resolved. In fact, she has a little bit of hypernatremia now. We are giving her a little more fluid. Review of her orders: I do not see any change. cc: Willian Cabezas MD
[2018-06-17] MEDS: SANTYL OINT TOP SCH (12:40)
[2018-06-17 14:19] LABS: URINE SOURCE CATH
[2018-06-17 14:23] LABS: BILIRUBIN URINE NEGATIVE (NEGATIVE); BLOOD URINE NEGATIVE (NEGATIVE); COLOR YELLOW; GLUCOSE URINE 150 mg/dL (NEGATIVE); KETONE URINE NEGATIVE (NEGATIVE); LEUKOCYTES URINE NEGATIVE (NEGATIVE); NITRITE URINE NEGATIVE (NEGATIVE); PROTEIN URINE 300 mg/dL (NEGATIVE); SP GRAVITY URINE 1.014; TURBIDITY URINE CLEAR (CLEAR); UROBILINOGEN URINE NORMAL (NORMAL)
[2018-06-17 14:24] LABS: UR EPITHELIAL CELLS <10 /HPF (<10); URINE BACTERIA NEGATIVE /HPF; URINE RBC <10 /HPF (<10)
[2018-06-17] MEDS: CUBICIN 350 MG in NS 100 ML IV SCH (15:49)
[2018-06-18] MEDS: MERREM 1 GM in NS 50 ML IV SCH ×3 (01:43→17:37)
[2018-06-18] MEDS: XOPENEX NEB INH SCH ×6 (03:30→23:04)
[2018-06-18] MEDS: HUMALOG SUBQ SCH ×4 (06:38→23:36)
[2018-06-18 08:57] LABS: ESTIMATED GFR > 60
[2018-06-18 09:03] LABS: AGAP 8; ALB/GLOB RATIO 0.6; ALBUMIN 2.4 g/dL (3.5-5.0); ALKALINE PHOSPHATASE 231 U/L (32-104); BUN 56 mg/dL (8-22); CALCIUM 8.1 mg/dL (8.8-10.2); CHLORIDE 116 mmol/L (98-107); COSMO 318; CREATININE 0.9 mg/dL (0.5-0.9); GLUCOSE 175 mg/dL (70-104); GOT 83 U/L (10-30); GPT 79 U/L (10-36); PHOSPHORUS 3.6 mg/dL (2.7-4.5); POTASSIUM 5.9 mmol/L (3.5-5.1); PREALBUMIN 18.3 mg/dL (20-40); SODIUM 150 mmol/L (136-145); TCO2 26 mmol/L (25-35); TOTAL BILIRUBIN 0.19 mg/dL (0.20-1.00); TOTAL PROTEIN 6.7 g/dL (6.3-8.3)
[2018-06-18] MEDS: PERIDEX MISC SCH ×2 (09:36→23:36)
[2018-06-18] MEDS: MIRALAX PEG SCH ×2 (09:36→09:59)
[2018-06-18] MEDS: PLAVIX PEG SCH (09:36)
[2018-06-18] MEDS: FEOSOL LIQUID PEG SCH ×2 (09:37→23:35)
[2018-06-18] MEDS: BASAGLAR SUBQ SCH (09:37)
[2018-06-18] MEDS: SANTYL OINT TOP SCH (09:37)
[2018-06-18] MEDS: HEPARIN SUBQ SCH ×2 (09:37→16:21)
[2018-06-18] MEDS: SINGULAIR PEG SCH (09:38)
--- NOTE | 2018-06-18 10:11 | PROGRESS NOTE ---
DATE: 06/18/2018 ADDENDUM: Ms. Marrero admits the windows consultant has been increasing her free water intake and so we will continue to do that. Sodium is 150. She is getting nutrition through the NG tube, so I will not start the Clinimix but continue to try and increase free water. cc: Willian Cabezas MD
--- NOTE | 2018-06-18 10:15 | PROGRESS NOTE ---
DATE: 06/18/2018 SUBJECTIVE: Ms. Marrero was sleeping, easy to arouse, appears comfortable. Denies any pain. Breathing comfortably. OBJECTIVE: Vital Signs: Temperature 98.4 degrees, pulse 108, respirations 24, and blood pressure 129/64. Eyes: Pupils are equal and round. Lungs: Clear in all lung zimmer. Cardiovascular exam: Regular rhythm and rate without murmur or S3. : Urine output was 3600. Blood sugars reviewed. ASSESSMENT AND PLAN: 1. Sacral decubitus ulcers may be origin of bacteremia, Bacteroides bacteremia. CT of the pelvis showed a sacral decubitus ulcer, but also showed evidence of coccygeal osteomyelitis. The patient is on meropenem; this is the sixth day. 2. Acute kidney injury, improved renal function. 3. Vegetative state, status post cardiac arrest and multiple strokes. Had a tracheostomy, percutaneous endoscopic gastrostomy tube. 4. Nutrition. 5. Hyponatremia, which is resolved. Note that hematocrit is 23, hemoglobin is 7, white blood cell count 21,240 so still elevated, platelet count 434,000. Sodium 150, potassium 5.9, chloride 116. BUN 56, creatinine 0.9. Blood sugar 122, 200, 175. I do not see any change. Note that pre-albumin is 18.3. I do not know if we should add some Clinimix. I think I will. Right now, I do not think she is getting any IV fluid, so I may try some Clinimix at 80 mL an hour to see if that helps with nutritional status. cc: Willian Cabezas MD
[2018-06-18 12:03] LABS: URINE SOURCE CATH
[2018-06-18 12:50] LABS: BILIRUBIN URINE NEGATIVE (NEGATIVE); BLOOD URINE NEGATIVE (NEGATIVE); COLOR YELLOW; GLUCOSE URINE 100 mg/dL (NEGATIVE); KETONE URINE NEGATIVE (NEGATIVE); LEUKOCYTES URINE NEGATIVE (NEGATIVE); NITRITE URINE NEGATIVE (NEGATIVE); PH URINE 8.5; PROTEIN URINE 200 mg/dL (NEGATIVE); SP GRAVITY URINE 1.011; TURBIDITY URINE CLEAR (CLEAR); UR EPITHELIAL CELLS <10 /HPF (<10); URINE BACTERIA NEGATIVE /HPF; URINE RBC <10 /HPF (<10); URINE WBC <10 /HPF (<10); UROBILINOGEN URINE NORMAL (NORMAL)
[2018-06-18] MEDS: CUBICIN 350 MG in NS 100 ML IV SCH (16:21)
[2018-06-19] MEDS: MERREM 1 GM in NS 50 ML IV SCH ×3 (01:15→22:15)
[2018-06-19] MEDS: HEPARIN SUBQ SCH ×4 (01:15→22:16)
[2018-06-19] MEDS: XOPENEX NEB INH SCH ×6 (03:08→23:30)
--- NOTE | 2018-06-19 06:35 | PROGRESS NOTE ---
DATE: 06/19/2018 SUBJECTIVE: Ms. Marrero was resting comfortably, sleeping comfortably, and breathing comfortably. OBJECTIVE: Vital signs: Temp 99.9 degrees, pulse 111, respirations 24 and blood pressure 119/99. HEENT: Pupils are equal. Neck: Distended neck veins. Lungs: Clear in all lung zimmer. Cardiovascular: Regular rhythm and rate without murmurs. Genitourinary: Urine output 2100 mL. LABS: Blood sugars were 200, 206, and 188. ASSESSMENT AND PLAN: 1. Sacral decubitus ulcer with some bacteremia. She had Bacteroides bacteremia. CT of the pelvis showed sacral decubitus ulcer, but also showed evidence of coccygeal osteomyelitis. Continue meropenem. 2. Acute kidney injury, which is improved with fluid. 3. Vegetative state status post cardiac arrest and multiple strokes. She had a tracheostomy. She has a PEG tube as well. 4. Nutrition. 5. Hyponatremia, which we are still working on. We are trying to increase her free water. She still has significant leukocytosis. Potassium was 6.0, but creatinine is 0.9, so I guess we will have to switch her to Nephro for feeding and continue to increase her free water. We will see what her sodium shows today. cc: Willian Cabezas MD
[2018-06-19] MEDS: HUMALOG SUBQ SCH ×4 (06:37→22:15)
[2018-06-19] MEDS: PLAVIX PEG SCH (08:01)
[2018-06-19] MEDS: SINGULAIR PEG SCH (08:01)
[2018-06-19] MEDS: BASAGLAR SUBQ SCH (08:01)
[2018-06-19] MEDS: FEOSOL LIQUID PEG SCH ×2 (08:02→22:16)
[2018-06-19] MEDS: PERIDEX MISC SCH ×2 (08:03→22:16)
[2018-06-19] MEDS: SANTYL OINT TOP SCH (08:04)
[2018-06-19 08:25] LABS: AGAP 12; ALB/GLOB RATIO 0.4; ALKALINE PHOSPHATASE 241 U/L (32-104); BUN 52 mg/dL (8-22); CHLORIDE 116 mmol/L (98-107); COSMO 306; CREATININE 0.8 mg/dL (0.5-0.9); ESTIMATED GFR > 60; GLUCOSE 182 mg/dL (70-104); GOT 70 U/L (10-30); GPT 92 U/L (10-36); MAGNESIUM 2.7 mg/dL (1.5-2.7); PHOSPHORUS 3.4 mg/dL (2.7-4.5); SODIUM 144 mmol/L (136-145); TCO2 16 mmol/L (25-35); TOTAL BILIRUBIN 0.21 mg/dL (0.20-1.00); TOTAL PROTEIN 6.5 g/dL (6.3-8.3)
[2018-06-19 08:49] LABS: POTASSIUM 6.3 mmol/L (3.5-5.1)
[2018-06-19] MEDS: CUBICIN 350 MG in NS 100 ML IV SCH (18:35)
[2018-06-20] MEDS: HEPARIN SUBQ SCH ×3 (00:06→18:00)
[2018-06-20] MEDS: XOPENEX NEB INH SCH ×6 (03:25→23:30)
[2018-06-20] MEDS: MERREM 1 GM in NS 50 ML IV SCH ×3 (04:17→20:09)
[2018-06-20] MEDS: HUMALOG SUBQ SCH ×4 (06:46→20:13)
[2018-06-20 07:13] LABS: AGAP 7; ALB/GLOB RATIO 0.5; ALBUMIN 2.4 g/dL (3.5-5.0); ALKALINE PHOSPHATASE 257 U/L (32-104); BUN 45 mg/dL (8-22); CHLORIDE 113 mmol/L (98-107); COSMO 304; CREATININE 0.7 mg/dL (0.5-0.9); ESTIMATED GFR > 60; GLUCOSE 227 mg/dL (70-104); GOT 41 U/L (10-30); GPT 77 U/L (10-36); MAGNESIUM 2.4 mg/dL (1.5-2.7); PHOSPHORUS 3.2 mg/dL (2.7-4.5); POTASSIUM 5.5 mmol/L (3.5-5.1); SODIUM 143 mmol/L (136-145); TCO2 23 mmol/L (25-35); TOTAL PROTEIN 7.1 g/dL (6.3-8.3)
[2018-06-20] MEDS: PERIDEX MISC SCH ×2 (10:39→20:08)
[2018-06-20] MEDS: SANTYL OINT TOP SCH (10:51)
[2018-06-20] MEDS: FEOSOL LIQUID PEG SCH ×2 (10:52→20:09)
[2018-06-20] MEDS: SINGULAIR PEG SCH (10:53)
[2018-06-20] MEDS: PLAVIX PEG SCH (10:53)
[2018-06-20] MEDS: BASAGLAR SUBQ SCH (11:05)
--- NOTE | 2018-06-20 13:12 | PROGRESS NOTE ---
DATE: 06/20/2018 SUBJECTIVE: Mrs. Marrero is awake. She seems comfortable, no complaints. I asked her yes or no questions about whether she had pain or discomfort. She is breathing comfortably. OBJECTIVE: Temperature 98 degrees, pulse 92, respirations 20, blood pressure 114/56. Pupils are equal and round. Lungs are clear in all lung zimmer. Cardiovascular: Regular rhythm and rate without murmur or S3. URINE OUTPUT: 2100 mL. ASSESSMENT AND PLAN: 1. Sacral decubitus ulcer bacteremia. It looks like she has coccygeal osteomyelitis per CT scan. We will continue her meropenem. 2. Acute kidney injury which is improved with fluid. 3. Vegetative state status post cardiac arrest and multiple strokes. Has had a tracheostomy and PEG tube placed. Doing well. 4. Nutrition. I think this is adequate. 5. Struggling with trying to get her sodium up for a while and the sodium is okay now. I notice that her potassium is 5.5, so we have given her more free water and that is encouraging. Potassium is starting to go down. 6. Review of her orders: I do not see any change. Note: We will continue topical care. She is on daptomycin 350 mg IV q.24 h. She is getting ferrous sulfate 220 mg b.i.d. She is on low- dose heparin for DVT prophylaxis 5000 units subcutaneous q.8 h. Her blood sugars appear to be fairly well controlled. We have to change her feeding to Nepro to try and lower the potassium load. She appears to not have any acidosis. We have increased her free liquid, which I think is helping her sodium. cc: Willian Cabezas MD
--- NOTE | 2018-06-20 14:59 | INFECTIOUS DISEASE PROGRESS NO ---
DATE: 06/20/2018 PRESENT ILLNESS: The patient has a sacral decubitus ulcer with an underlying osteomyelitis. She also has Bacteroides bacteremia, which I think came from the sacral decubitus ulcer. The patient had a fever 3 days ago, and since adding daptomycin to meropenem, she has not had anymore fever. MEDICATIONS: This is the seventh day of meropenem, and the third day of daptomycin. PHYSICAL EXAMINATION: Vital Signs: Temperature is 98.2 degrees, pulse 79, respirations 24, blood pressure 115/63. General: This is a chronically ill-appearing, middle-aged female. She is in no acute distress. HEENT: There is no drainage coming from the nose or ears. I did not get a good look in her mouth. Neck: The patient has a tracheostomy in place. Lungs: Clear to auscultation. Cardiovascular: Heart rate is regular. Abdomen: Soft and nontender. G-tube is in place. The G-tube site is not erythematous or purulent. Neurologic: The patient lies in bed. She does not talk, and she does not follow request to move her extremities. There is no tremor. LABORATORY DATA: There is no CBC or CK for today. Creatinine is 0.7. GFR is greater than 60. Alkaline phosphatase is 257. A repeat culture from the patient's sacral decubitus is growing a gram-positive coccus. Urine culture is negative. ASSESSMENT AND PLAN: The patient has Bacteroides bacteremia and a sacral decubitus wound with underlying osteomyelitis. The patient also had fever 4 days ago, and none has returned. Therefore, I am going to continue with the current antibiotics, namely daptomycin and meropenem. I am also going to order a CBC for tomorrow, as well as a CK for tomorrow also. COMORBIDITIES: Include dementia, cardiac arrest, chronic respiratory failure with need of tracheostomy, diabetes mellitus, and hepatitis C. cc: Manav Zarco MD
[2018-06-20] MEDS: CUBICIN 350 MG in NS 100 ML IV SCH (18:01)
[2018-06-21] MEDS: XOPENEX NEB INH SCH ×6 (03:35→22:58)
[2018-06-21] MEDS: MERREM 1 GM in NS 50 ML IV SCH ×3 (04:20→21:18)
[2018-06-21] MEDS: HEPARIN SUBQ SCH ×3 (04:20→18:49)
[2018-06-21] MEDS: HUMALOG SUBQ SCH ×4 (06:29→21:18)
[2018-06-21 07:20] LABS: BASO# 0.08 X1000 (0.0-0.2); BASO% 0.8 % (0.0-0.8); EOS# 0.37 X1000 (0.0-0.7); EOS% 3.5 % (0.0-10.0); HEMATOCRIT 27.4 % (37.0-47.0); HEMOGLOBIN 8.6 g/dL (12.0-16.0); IMM GRAN# 0.03 X1000 (0.0-0.04); IMM GRAN% 0.3 % (0.0-0.5); LYMPH# 1.52 X1000 (1.2-3.4); LYMPH% 14.3 % (20.5-51.1); MCH 29.5 PG (27-31); MCHC 31.4 g/dL (33-37); MCV 93.8 FL (81-99); MONO# 0.79 X1000 (0.11-0.59); MONO% 7.4 % (1.7-9.3); MPV 11.4 FL (7.4-10.4); NEUT# 7.84 X1000 (1.4-6.5); NEUT% 73.7 % (42.2-75.2); PLT 345 X1000 (130-400); RBC 2.92 XMIL (4.2-5.4); RDW 14.9 % (11.5-14.5); WBC 10.63 X1000 (4.8-10.8)
[2018-06-21 09:20] LABS: AGAP 9; ALB/GLOB RATIO 0.8; ALBUMIN 2.7 g/dL (3.5-5.0); ALKALINE PHOSPHATASE 218 U/L (32-104); BUN 43 mg/dL (8-22); CALCIUM 8.6 mg/dL (8.8-10.2); CHLORIDE 110 mmol/L (98-107); COSMO 296; CREATININE 0.6 mg/dL (0.5-0.9); ESTIMATED GFR > 60; GLUCOSE 176 mg/dL (70-104); GOT 38 U/L (10-30); GPT 62 U/L (10-36); MAGNESIUM 2.3 mg/dL (1.5-2.7); PHOSPHORUS 3.7 mg/dL (2.7-4.5); POTASSIUM 5.3 mmol/L (3.5-5.1); SODIUM 141 mmol/L (136-145); TCO2 22 mmol/L (25-35); TOTAL BILIRUBIN 0.18 mg/dL (0.20-1.00)
[2018-06-21] MEDS: SINGULAIR PEG SCH (10:57)
[2018-06-21] MEDS: PLAVIX PEG SCH (10:57)
[2018-06-21] MEDS: SANTYL OINT TOP SCH (10:58)
[2018-06-21] MEDS: FEOSOL LIQUID PEG SCH ×2 (10:58→21:18)
[2018-06-21] MEDS: BASAGLAR SUBQ SCH (10:59)
[2018-06-21] MEDS: PERIDEX MISC SCH ×2 (11:09→21:19)
--- NOTE | 2018-06-21 11:31 | INFECTIOUS DISEASE PROGRESS NO ---
DATE: 06/21/2018 PRESENT ILLNESS: The patient has a sacral decubitus ulcer with underlying osteomyelitis. I think this ulcer is where the patient's Bacteroides bacteremia originated. The patient was having fever, and after daptomycin was added, it went away. MEDICATIONS: This is the 8th day of treatment with meropenem and the 4th day of treatment with daptomycin. PHYSICAL EXAMINATION: Vital Signs: Temperature is 98.2 degrees, pulse 88, respirations 17, blood pressure 103/60. Generally: This is a chronically ill-appearing middle-aged female. She is in no acute distress. Head, Eyes, Ears, Nose, and Throat: No drainage noted from the nose or ears. Neck: Patient has a permanent tracheostomy in place. Lungs: Clear to auscultation. Cardiovascular: The patient's heart rate is regular. Abdomen: Soft and nontender. A G-tube is present. The site is not erythematous or purulent. Neurologic: The patient is awake. She did not respond to verbal stimuli. There was no tremor. Pelvic: I turned the patient on her side and removed the dressing from her sacral decubitus. Its size remains the same, and it is covered by devitalized tissue. There is no odor to the wound. DIAGNOSTIC STUDIES: There is no new radiographic study. The CBC shows a white count of 10,630, hemoglobin 8.6, and platelet count 345,000. Creatinine is 0.6, GFR is greater than 60, alkaline phosphatase is 218. CK is 34. ASSESSMENT AND PLAN: Patient has Bacteroides bacteremia and an infected decubitus wound with underlying osteomyelitis. Also, the patient's fever went away when daptomycin was added. Therefore, I am going to continue daptomycin and meropenem. COMORBIDITIES: 1. Dementia. 2. Cardiac arrest. 3. Chronic respiratory failure with need of a tracheostomy. 4. Diabetes mellitus. 5. Hepatitis C. cc: Manav Zarco MD
--- NOTE | 2018-06-21 17:02 | PROGRESS NOTE ---
DATE: 06/21/2018 SUBJECTIVE: Today Ms. Marrero refers to be feeling fairly okay. Does not really verbalize a lot. There was no family member at the bedside. OBJECTIVE: Vital signs: Blood pressure is 119/65, pulse is 109, respiration is 14, temperature is 98.1 degrees. The patient has a tracheostomy collar in place and was saturating well. On general exam, Ms. Marrero is a 52-year-old female. She was in bed, no distress. Mucosa is pink and moist. Anicteric. Acyanotic. Neck is supple. Tracheostomy is in place. Chest: Air entry is bilaterally reduced. Some crackles in the posterior lung zimmer. Cardiovascular: Regular rate and rhythm. Abdomen: Soft. PEG tube is in place. Extremities: Trace pedal edema. Central Nervous System: Patient is awake, seems to follow some basic commands. She has hyperreflexia and hypertonia and some atrophies noted. LABORATORY DATA: WBC is 10.61, hemoglobin is 8.6, platelet count of 345. Chemistry is also reviewed; sodium is 141, potassium is 5.3, rest of chemistry is unremarkable. AST and ALT are minimally elevated. MEDICATION: Patient's current medications have also been reviewed. She is still on daptomycin and meropenem. These were started on the 8th. Today is day 8 on both antibiotics. ASSESSMENT: 1. Septic shock on presentation associated with Bacteroides fragilis bacteremia. Subsequent blood cultures have been negative. 2. Stage 4 decubitus ulcer with sacral osteomyelitis. Culture from the wounds seems to be Enterococcus faecium. There is also 1 culture which is diphtheroids. ID is on board. The patient has been afebrile. White cell count seems to have normalized. 3. Acute kidney injury on presentation, resolved. 4. Chronic hypoxemic respiratory failure. Patient is on tracheostomy collar for oxygenation. 5. 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 Patient is currently bed- bound and has a tracheostomy and PEG. 6. Anemia of chronic disease. We will continue observing the hemoglobin and hematocrit and transfuse accordingly. 7. Diabetes mellitus, controlled. 8. History of hepatitis C. cc: Idris Dick MD
[2018-06-21] MEDS: CUBICIN 350 MG in NS 100 ML IV SCH (17:38)
[2018-06-21] MEDS ORDERED: NS 500 ML ONE (17:52)
[2018-06-22] MEDS: XOPENEX NEB INH SCH ×6 (03:25→23:15)
[2018-06-22] MEDS: HEPARIN SUBQ SCH ×3 (05:03→21:27)
[2018-06-22] MEDS: MERREM 1 GM in NS 50 ML IV SCH ×3 (05:04→21:27)
[2018-06-22] MEDS: HUMALOG SUBQ SCH ×4 (06:33→21:26)
[2018-06-22] MEDS ORDERED: INSULIN PEN NEEDLES ONE (07:26)
[2018-06-22] MEDS: VELTASSA PO SCH (10:22)
[2018-06-22] MEDS: FEOSOL LIQUID PEG SCH ×2 (10:22→21:27)
[2018-06-22] MEDS: PLAVIX PEG SCH (10:22)
[2018-06-22] MEDS: SINGULAIR PEG SCH (10:22)
[2018-06-22] MEDS: SANTYL OINT TOP SCH (10:23)
[2018-06-22] MEDS: BASAGLAR SUBQ SCH (10:23)
[2018-06-22] MEDS: PERIDEX MISC SCH ×2 (10:23→21:27)
[2018-06-22 12:27] LABS: AGAP 9; ALBUMIN 2.2 g/dL (3.5-5.0); BUN 32 mg/dL (8-22); CALCIUM 8.7 mg/dL (8.8-10.2); CHLORIDE 108 mmol/L (98-107); COSMO 290; CREATININE 0.5 mg/dL (0.5-0.9); ESTIMATED GFR > 60; GLUCOSE 192 mg/dL (70-104); PHOSPHORUS 2.8 mg/dL (2.7-4.5); POTASSIUM 5.2 mmol/L (3.5-5.1); SODIUM 139 mmol/L (136-145); TCO2 22 mmol/L (25-35)
--- NOTE | 2018-06-22 13:23 | INFECTIOUS DISEASE PROGRESS NO ---
DATE: 06/22/2018 PRESENT ILLNESS: The patient has sacral decubitus ulcer with underlying osteomyelitis. The patient also had Bacteroides bacteremia. MEDICATIONS: This is the 9th day of treatment with meropenem and the 5th day of treatment with daptomycin. PHYSICAL EXAMINATION: Vital Signs: Temperature is 97.8 degrees, pulse 96, respirations 24, blood pressure 120/60. General: This is a chronically ill-appearing middle-aged female. She is in no acute distress. Head, eyes, ears, nose, and throat: Does not have any drainage coming from her nose or ears. She does not have any white coating on her tongue. Neck: Patient has a permanent tracheostomy in place. Lungs: Clear to auscultation. Cardiovascular: Heart rate is regular. Abdomen: Soft and nontender. G-tube is present. There is no drainage coming from the site and there is no erythema. Neurologic: The patient is awake. She did respond to my verbal request to move her legs. Pelvis: Patient's pelvic decubitus continues to have devitalized tissue. DIAGNOSTIC STUDIES: The patient's creatinine is 0.5, GFR is greater than 60. CK is 34. Culture from the patient's sacral decubitus ulcer is growing vancomycin-resistant Enterococcus. ASSESSMENT AND PLAN: The patient has Bacteroides bacteremia and infected decubitus sacral decubitus ulcer with underlying osteomyelitis. I plan to continue with daptomycin, which is the 5th day of treatment and with that agent and meropenem which has the 9th day of treatment with that agent. COMORBIDITIES: Dementia, cardiac arrest, chronic respiratory failure with need of a tracheostomy, diabetes mellitus, and hepatitis C. cc: MD COCO Wells
--- NOTE | 2018-06-22 14:57 | PROGRESS NOTE ---
DATE: 06/22/2018 SUBJECTIVE: This morning Ms. Marrero was sleepy but was easily arousable. Refers to be doing fairly okay. OBJECTIVE: Vital signs: Blood pressure is 123/67, pulse of 108, respiration is 24, temperature 98.0 degrees. On general exam, Ms. Marrero is a 52-year-old female. She was in bed, no distress mucosa is pink and moist. Anicteric. Acyanotic. Neck is supple. Tracheostomy is in place. Chest was clear. There are a few crackles in both lung zimmer. Cardiovascular: Regular rate and rhythm. Abdomen: Soft. PEG tube is in place. Extremities: Trace pedal edema. Central Nervous System: Patient was sleepy but easily arousable and will follow basic commands. LABORATORY DATA: Has been reviewed. Potassium is down to 5.2. Rest of chemistry is unremarkable. ASSESSMENT: 1. Septic shock on presentation associated with Bacteroides fragilis bacteremia. Subsequent blood cultures have been negative. 2. Stage 4 decubitus ulcer associated with sacral osteomyelitis. Cultures positive for Enterococcus faecium. The patient is on antibiotics. 3. Acute kidney injury, resolved. 4. Chronic hypoxemic respiratory failure. Patient is on tracheostomy collar. 5. 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 6. Anemia of chronic disease, stable. 7. Diabetes mellitus, controlled. 8. History of hepatitis C. 9. Percutaneous endoscopic gastrostomy tube feedings. In general, I think Ms. Marrero is fairly stable. We will continue with the [facility] for the mildly elevated potassium. The patient is currently on IV antibiotics, and OR plans to continue that for some time. I understand from the social workers that [facility] will be able to do these antibiotics, so hopefully we can send her home to [facility], where she has been a long-term resident. cc: Idris Dick MD
[2018-06-22] MEDS: CUBICIN 350 MG in NS 100 ML IV SCH (17:19)
[2018-06-23] MEDS: XOPENEX NEB INH SCH ×6 (03:03→23:30)
[2018-06-23] MEDS: HEPARIN SUBQ SCH ×3 (05:14→23:03)
[2018-06-23] MEDS: MERREM 1 GM in NS 50 ML IV SCH ×3 (05:15→23:03)
[2018-06-23] MEDS: HUMALOG SUBQ SCH ×4 (07:00→23:04)
[2018-06-23] MEDS: FEOSOL LIQUID PEG SCH ×2 (08:35→23:03)
[2018-06-23] MEDS: VELTASSA PO SCH (08:35)
[2018-06-23] MEDS: SANTYL OINT TOP SCH (08:35)
[2018-06-23] MEDS: BASAGLAR SUBQ SCH (08:36)
[2018-06-23] MEDS: PLAVIX PEG SCH (08:36)
[2018-06-23] MEDS: SINGULAIR PEG SCH (08:36)
[2018-06-23] MEDS: PERIDEX MISC SCH (10:35)
--- NOTE | 2018-06-23 11:28 | DISCHARGE SUMMARY ---
ADMISSION DATE: 06/09/2018 DISCHARGE DATE: 06/23/2018 DISPOSITION: Back to [facility]. FOLLOWUP: 1. Will be with the patient's PCP, Dr. Grant. 2. Dr. Zarco. 3. Dr. Goncalves. CONSULTATIONS DURING THIS ADMISSION: 1. ID was consulted. Patient was seen by Dr. Zarco. 2. Surgery was consulted. Patient was seen by Dr. Goncalves. INVASIVE PROCEDURES DONE DURING THIS ADMISSION: None. IMAGING STUDIES OF SIGNIFICANCE: 1. A CT scan of the chest, abdomen, and pelvis saw bilateral lower lobe infiltrates that are nonspecific, likely representing pneumonia. There is severe decubitus ulceration all the way to the sacrum, low sacrococcygeal osteomyelitis, and there is a tiny nonobstructing, 1 mm renal stone. 2. A CT scan of the abdomen and pelvis showed a decubitus ulcer overlying the sacrum with underlying osteomyelitis. No evidence of organized abscess. ADMISSION DIAGNOSES: 1. Presumed sepsis. 2. Hyperkalemia. 3. Anemia of chronic disease. 4. Chronic bedbound state. 5. Diabetes mellitus. 6. Multiinfarct cerebrovascular accidents. DIAGNOSES AT THE TIME OF DISCHARGE: 1. Septic shock on presentation associated with Bacteroides fragilis bacteremia. Subsequent blood cultures have been negative. 2. 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 Wound culture positive for Enterococcus faecium. 3. Acute kidney injury, resolved. 4. Chronic hypoxemia, respiratory failure. The patient is on a trach collar. 5. Vegetative state after previous cardiac arrest and multiple cerebrovascular accidents. 6. Anemia of chronic disease. 7. Diabetes mellitus, on insulin. 8. History of hepatitis C. 9. Percutaneous endoscopic gastrostomy tube feedings. DISCHARGE MEDICATIONS: 1. Dulcolax. 2. Clopidogrel 75 mg daily. 3. Lisinopril 5 mg daily. 4. MiraLAX p.r.n. 5. Albuterol nebulizers. 6. Montelukast 10 mg daily. 7. Iron 220 mg b.i.d. through the PEG tube. 8. Patiromer 8.4 g p.o. daily for 2 days. 9. Insulin glargine 25 units subcutaneously in the morning. RECOMMENDATION: 1. Patient to repeat a BMP in 1 week to follow up on the potassium. 2. Will also be awaiting final antibiotic recommendation from ID. PRESENTING COMPLAINT: Fever. HISTORY OF PRESENTING COMPLAINT: Ms. Marrero is a 52-year-old, female who has a history of multiple CVAs resulting in vascular dementia and also chronic respiratory failure, on a trach collar, vegetative state and bedbound. Came in, was brought from [facility] because of fever. Upon presentation, patient was evaluated. Blood pressure had gotten down to about 81/48 at some point. She was admitted to the ICU for septic shock. HOSPITAL COURSE: Ms. Marrero was fluid resuscitated. Did not need any pressor. Blood pressure got normalized. She was subsequently transferred from the ICU to the medical floor. Blood culture at some point became positive for Bacteroides fragilis. ID was consulted. Antibiotics were dictated by infectious disease. Because of the sacral ulcer and the coccygeal osteomyelitis, surgery was also consulted. Patient was seen by Dr. Goncalves, who recommended to continue IV antibiotics and daily wound care. Ms. Marrero continues to be stabilized during the hospital course. Her tube feedings were restarted and she tolerated it well. Trach collar oxygenation continued. Over the course of the hospital stay, a repeat blood culture became negative. The patient is, therefore, clinically stable for discharge. Their final antibiotic length of therapy will be dictated by infectious disease. This morning, Ms. Marrero's blood pressure is 110/60, pulse is 98, respirations are 20, temperature 98.8 degrees, patient was saturating 95%. Physical exam is pretty much unchanged. Ms. Marrero is stable for discharge today. All the discharge instructions have been reviewed with her. She will eventually follow up with her primary care doctor, Dr. Grant, and with infectious disease. TIME SPENT: The time spent for discharge is 36 minutes. cc: MD Krunal Spencer MD Leroy F. Harris, MD Matthew L. Figh, MD
[2018-06-23 11:46] LABS: AGAP 8; ALB/GLOB RATIO 0.6; ALBUMIN 2.3 g/dL (3.5-5.0); ALKALINE PHOSPHATASE 249 U/L (32-104); BUN 26 mg/dL (8-22); CHLORIDE 109 mmol/L (98-107); COSMO 292; CREATININE 0.5 mg/dL (0.5-0.9); ESTIMATED GFR > 60; GLUCOSE 170 mg/dL (70-104); GOT 32 U/L (10-30); GPT 52 U/L (10-36); POTASSIUM 5.3 mmol/L (3.5-5.1); SODIUM 142 mmol/L (136-145); TCO2 25 mmol/L (25-35); TOTAL PROTEIN 6.3 g/dL (6.3-8.3)
[2018-06-23] MEDS ORDERED: NS 250 ML ONE (14:09)
--- NOTE | 2018-06-23 14:30 | INFECTIOUS DISEASE PROGRESS NO ---
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 The patient also had Bacteroides bacteremia. MEDICATIONS: The patient is on the 10th day of treatment with meropenem and the 6th day of treatment with daptomycin. PHYSICAL EXAMINATION: Vital Signs: Temperature is 97.6 degrees pulse 97, respirations 16, blood pressure 112/58. General: This is a chronically ill-appearing, middle-aged female. She is in no acute distress. Head, eyes, ears, nose, and throat: She does not have any drainage coming from her nose or ears. She does track with her eyes. I was unable to visualize her oral cavity well. Neck: The patient has a permanent tracheostomy in place. Lungs: Clear to auscultation. Cardiovascular: Heart rate is regular. Abdomen: Soft and nontender. A G-tube is in place. The G-tube site is not erythematous or purulent. Neurologic: As mentioned above, the patient is awake. She did follow my request to move her extremities. Pelvic exam: The patient's pelvic ulcer is covered by devitalized tissue. There is no surrounding erythema and no purulence. LAB AND X-RAY: Creatinine is 0.5. GFR is greater than 60. Alkaline phosphatase is 249. There is no CBC for today and there is no radiographic study for today. ASSESSMENT AND PLAN: The patient has a Bacteroides bacteremia, infected sacral decubitus, and sacral osteomyelitis. The patient is going to be going back to her rehab place where she lives. I have made the following orders, daptomycin 350 mg IV daily and ertapenem 1 g IV daily, both for 5 weeks. I have requested that the patient have a CBC, a creatinine, and a CPK drawn every Wednesday for 5 weeks also. I put in an order now to get a PICC placed and in the orders where the patient is to be going I have put that the PICC should be removed after the last dose of antibiotics. COMORBIDITIES: Dementia, cardiac arrest, chronic respiratory failure with need of a tracheostomy, diabetes mellitus, and hepatitis C. cc: Manav Zarco MD
[2018-06-23 17:01] LABS: INR 0.84; PROTIME 12.3 Seconds (11.0-16.0)
[2018-06-23] MEDS: CUBICIN 350 MG in NS 100 ML IV SCH (23:04)
[2018-06-24] MEDS: XOPENEX NEB INH SCH ×2 (03:45→11:44)
[2018-06-24] MEDS: HEPARIN SUBQ SCH (04:29)
[2018-06-24] MEDS: MERREM 1 GM in NS 50 ML IV SCH (04:29)
[2018-06-24] MEDS: PERIDEX MISC SCH ×2 (05:01→08:25)
[2018-06-24] MEDS: HUMALOG SUBQ SCH ×2 (06:30→11:42)
[2018-06-24 08:02] LABS: AGAP 7; ALB/GLOB RATIO 0.6; ALBUMIN 2.4 g/dL (3.5-5.0); ALKALINE PHOSPHATASE 242 U/L (32-104); BUN 24 mg/dL (8-22); CALCIUM 9.3 mg/dL (8.8-10.2); CHLORIDE 103 mmol/L (98-107); COSMO 284; CREATININE 0.4 mg/dL (0.5-0.9); ESTIMATED GFR > 60; GLUCOSE 200 mg/dL (70-104); GOT 26 U/L (10-30); GPT 44 U/L (10-36); POTASSIUM 4.1 mmol/L (3.5-5.1); SODIUM 137 mmol/L (136-145); TCO2 27 mmol/L (25-35); TOTAL BILIRUBIN 0.17 mg/dL (0.20-1.00); TOTAL PROTEIN 6.2 g/dL (6.3-8.3)
[2018-06-24] MEDS: BASAGLAR SUBQ SCH (08:25)
[2018-06-24] MEDS: PLAVIX PEG SCH (08:25)
[2018-06-24] MEDS: SINGULAIR PEG SCH (08:25)
[2018-06-24] MEDS: FEOSOL LIQUID PEG SCH (08:26)
--- NOTE | 2018-06-24 11:40 | PROGRESS NOTE ---
DATE: 06/24/2018 SUBJECTIVE: This morning Ms. Marrero refers to be doing fairly okay. I understand she could not be discharged yesterday because she needed a PICC line and this has been placed in now. OBJECTIVE: Vital Signs: Stable. Blood pressure is 123/70, pulse is 114, respiration is 14, temperature is 98.2 degrees. Patient is saturating 100% on the trach collar. General exam: Ms. Marrero is a 52-year-old female. She is in bed. She is not in any cardiopulmonary distress. Neck: Supple. Trach collar is in place. Chest: Good air entry bilaterally. A few crackles in both lung zimmer. Cardiovascular: Regular rate and rhythm. Abdomen: Soft. There is a PEG tube in place. Extremities: Trace of pedal edema. 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 Has remarkable atrophies and spastic upper quadriparesis. LAB: The chemistry for this morning is remarkably normal. ASSESSMENT: 1. Septic shock on presentation associated with Bacteroides bacteremia, improved. 2. 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 Culture positive for enterococcal cesium. Infectious Disease is on board. 3. Acute kidney injury, resolved. 4. Chronic hypoxemic respiratory failure. Patient is in tracheostomy collar for oxygenation. 5. 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 6. Anemia of chronic disease. 7. Diabetes mellitus, controlled. 8. Percutaneous endoscopic gastrostomy tube feedings. PLAN: So, in general Ms. Marrero is stable for discharge. Please refer to the details of the discharge summary dictated yesterday. She is going to continue with the current antibiotics as per ID recommendations. cc: Idris Dick MD
[2018-06-24] MEDS: SANTYL OINT TOP SCH (11:42)
[2018-06-24] MEDS: VELTASSA PO SCH (11:42)
[2018-06-24 11:49] VITALS: BP 118/69
== END 2018-06-24 14:22 | DRG 871 ==
LOC: ED 21:05 → SUATTDRO 06-09 05:16 → EDIPHOLD 06-09 05:16 → ICU 06-10 04:28 → 4N 06-12 17:29
PROVIDERS: ATTEND Internal Medicine
CPT/HCPCS: 36569; 71010; 71045; 71250; 74176; 74177; 80048; 80053; 80069; 81001; 82040; 82550; 82607; 82728; 82746; 82805; 82948; 83036; 83540; 83550; 83605; 83735; 83880; 84100; 84132; 84134; 84443; 84484; 85025; 85610; 85730; 87040; 87070; 87076; 87077; 87088; 87186; 87205; 87275; 87276; 87804; 93005; 94640; 94760; 94761; 96361; 96365; 96366; 96367; 96372; 96375; 97161; 99285; A9270; J0610; J0878; J1644; J1756; J1815; J2185; J2543; J3370; J3480; J7030; J7040; J7050; J7070; Q9967; XXXXX

== ENCOUNTER 2018-07-09 08:32 | Inpatient (IN) ==
[2018-07-09] MEDS ORDERED: DUONEB (A & A) INH ONE (08:56)
[2018-07-09 09:15] LABS: BASO# 0.09 X1000 (0.0-0.2); BASO% 0.4 % (0.0-0.8); EOS# 0.12 X1000 (0.0-0.7); EOS% 0.5 % (0.0-10.0); HEMATOCRIT 23.4 % (37.0-47.0); HEMOGLOBIN 7.7 g/dL (12.0-16.0); IMM GRAN# 0.05 X1000 (0.0-0.04); IMM GRAN% 0.2 % (0.0-0.5); LYMPH# 1.57 X1000 (1.2-3.4); LYMPH% 7.1 % (20.5-51.1); MCH 29.8 PG (27-31); MCHC 32.9 g/dL (33-37); MCV 90.7 FL (81-99); MONO% 4.5 % (1.7-9.3); MPV 10.2 FL (7.4-10.4); NEUT# 19.42 X1000 (1.4-6.5); NEUT% 87.3 % (42.2-75.2); PLT 452 X1000 (130-400); RBC 2.58 XMIL (4.2-5.4); RDW 13.6 % (11.5-14.5); WBC 22.25 X1000 (4.8-10.8)
[2018-07-09 09:21] LABS: AGAP 11; ALB/GLOB RATIO 0.7; ALBUMIN 2.4 g/dL (3.5-5.0); ALKALINE PHOSPHATASE 222 U/L (32-104); BUN 36 mg/dL (8-22); CALCIUM 9.5 mg/dL (8.8-10.2); CHLORIDE 97 mmol/L (98-107); COSMO 288; CREATININE 0.8 mg/dL (0.5-0.9); ESTIMATED GFR > 60; GLUCOSE 199 mg/dL (70-104); GOT 28 U/L (10-30); GPT 32 U/L (10-36); POTASSIUM 4.1 mmol/L (3.5-5.1); SODIUM 137 mmol/L (136-145); TCO2 29 mmol/L (25-35); TOTAL BILIRUBIN 0.18 mg/dL (0.20-1.00); TOTAL PROTEIN 5.9 g/dL (6.3-8.3)
[2018-07-09 09:37] LABS: LYMPHS 7 % (21-51); MONO 4 % (1-9); SEGS 89 % (42-75)
[2018-07-09 09:38] LABS: POIKILOCYTOSIS 1+; TARGET CELLS 1+
--- NOTE | 2018-07-09 09:41 | Diag Imaging Result Doc PS360 ---
EXAM: CHEST-PORTABLE HISTORY: dyspnea TECHNIQUE: Portable chest single view COMPARISON: 08/19/2018 FINDINGS: Interval placement of a right-sided PICC line. The tip is in the midsuperior vena cava. No change in the tracheostomy tube. There are infiltrates and/or atelectasis throughout the left lung which have developed since the prior study. The right lung remains clear. IMPRESSION: Interval development of infiltrates and atelectasis in the left lung. Electronically signed by Kian Larios 07/09/2018 9:39 AM
[2018-07-09 09:46] LABS: INR 1.05; PROTIME 14.6 Seconds (11.0-16.0)
[2018-07-09 09:47] LABS: PTT 36.4 Seconds (22.3-41.8)
[2018-07-09] MEDS ORDERED: VANCOMYCIN 1 GM/NS 1 GM/250 ML IVPB IV ONE (09:52)
[2018-07-09] MEDS ORDERED: ZOSYN 3.375 GM in NS 50 ML IV ONE (09:53)
[2018-07-09] MEDS ORDERED: ZOFRAN IV PRN (10:08)
[2018-07-09] MEDS ORDERED: NS NEB INH SCH (10:15)
[2018-07-09] MEDS ORDERED: CUBICIN 350 MG in NS 100 ML IV SCH ×2 (10:15→13:00)
[2018-07-09] MEDS: NS 1,000 ML IV SCH ×2 (10:44→23:52)
[2018-07-09] MEDS: ATROVENT NEB INH SCH ×4 (11:00→23:28)
[2018-07-09] MEDS ORDERED: HUMALOG SUBQ SCH (11:00)
[2018-07-09] MEDS: XOPENEX NEB INH SCH ×4 (11:00→23:29)
[2018-07-09 11:11] LABS: URINE SOURCE CATH
[2018-07-09 11:16] LABS: BILIRUBIN URINE NEGATIVE (NEGATIVE); BLOOD URINE TRACE (NEGATIVE); COLOR YELLOW; GLUCOSE URINE NEGATIVE (NEGATIVE); KETONE URINE TRACE mg/dL (NEGATIVE); LEUKOCYTES URINE LARGE (NEGATIVE); NITRITE URINE NEGATIVE (NEGATIVE); PH URINE 5.5; PROTEIN URINE 300 mg/dL (NEGATIVE); SP GRAVITY URINE 1.016; TURBIDITY URINE TURBID (CLEAR); UROBILINOGEN URINE 2 mg/dL (NORMAL)
[2018-07-09 11:41] LABS: UR EPITHELIAL CELLS <10 /HPF (<10); URINE BACTERIA NEGATIVE /HPF; URINE RBC 20-40 /HPF (<10); URINE WBC TNTC /HPF (<10)
--- NOTE | 2018-07-09 11:41 | PROVIDER DOCUMENTATION ---
This chart was entered by Samantha Bradford Scribe, acting as scribe for Jameson Jose MD. HPI-Respiratory General - General Chief Complaint: Shortness of Breath Stated Complaint: sob Time Seen by Provider: 07/09/18 08:54 Source: EMS Allergies/Adverse Reactions: Patient Allergies Allergy/AdvReac Type Severity Reaction Status Date / Time aspirin Allergy Unknown Verified 06/09/18 02:24 codeine Allergy Unknown Verified 06/09/18 02:24 morphine Allergy Unknown Verified 06/09/18 02:24 pregabalin [From Lyrica] Allergy Unknown Verified 06/09/18 02:24 Home Medications: Home Medication List Medication Instructions Recorded Confirmed Last Taken Type Acetaminophen [Tylenol 8 Hour] 1 tab PEG Q6H PRN 04/03/18 07/09/18 Unknown History Allopurinol [Zyloprim] 1 tab PEG DAILY 04/03/18 07/09/18 04/03/18 History Bisacodyl [Dulcolax] 1 supp RC PRN PRN 04/03/18 07/09/18 Unknown History Clopidogrel Bisulfate [Plavix] 1 tab PEG DAILY 04/03/18 07/09/18 04/03/18 History Lisinopril 1 tab PEG DAILY 04/03/18 07/09/18 04/03/18 History Polyethylene Glycol 3350 [Miralax] 1 dose PEG BID 04/03/18 07/09/18 04/03/18 History Montelukast Sodium [Singulair] 10 mg PEG DAILY 06/09/18 07/09/18 Unknown History Acetaminophen [Tylenol] 650 mg GT Q6H PRN PRN tab 06/23/18 07/09/18 Unknown Rx Ferrous Sulfate [Feosol Liquid] 220 mg PEG BID bottle 06/23/18 07/09/18 Unknown Rx Collagenase Clostridium Oint 1 dose TOP DAILY 07/09/18 07/09/18 Unknown History [Santyl Oint] Ertapenem [Invanz] 1 g IV DAILY 07/09/18 07/09/18 Unknown History - History of Present Illness-Resp Nature of Presenting Problem: 52 y/o female presents to ED with low O2 sats onset just prior to arrival. Pt has trach and was found to be hypoxic on nonrebreather. Pt cannot give any history. EMS reports they were able to get her O2 sats into the 80s en route to ED. Quality of Pain: reports: none Severity in ED: reports: severe Onset/Duration: reports: just prior to arrival Timing: reports: still present Context: reports: other Exposure: reports: unknown cause Cough Quality/Degree: reports: no cough Episode Frequency: no prior episodes Current Respiratory Medication Therapy: Initiated see nurses note Modifying Factors: improves with: nothing Associated Symptoms: reports: other (low O2 sat) Similar Symptoms Previously?: No Recently seen or treated by another doctor?: No Review of Systems - Adult - REVIEW OF SYSTEMS - ADULT ROS:: limited per condition Constitutional: reports: no symptoms reported Eyes: reports: no symptoms reported Ears, Nose, Mouth & Throat: reports: no symptoms reported Cardiovascular: reports: no symptoms reported Respiratory: reports: see HPI, other (low O2 sat) Gastrointestinal: reports: no symptoms reported Genitourinary: reports: no symptoms reported Musculoskeletal: reports: no symptoms reported Integumentary: reports: no symptoms reported Neurological: reports: no symptoms reported Psychiatric: reports: no symptoms reported Endocrine: reports: no symptoms reported Hematologic/Lymphatic: reports: no symptoms reported Allergic/Immunologic: reports: no symptoms reported All Other Systems: Reviewed and Negative Past History - Adult - PAST MEDICAL HISTORY-ADULT Review of Records: reports: Old Records Reviewed, Nursing Assessment Review, Medications Reviewed Major Childhood Illnesses: reports: denies history Cardiovascular: reports: CHF, HTN, hyperlipidemia Respiratory: reports: asthma Genitourinary: reports: kidney disease (CECILIA) Neurological: reports: CVA, dementia, Seizures/Epilepsy, TIA Endocrine/Immune: reports: Diabetes Other Conditions: reports: cataract/glaucoma, MRSA Additional History: Hepatitis C, gout - PRIOR SURGERIES/PROCEDURES Surgical/Procedure History: reports: appendectomy, cholecystectomy, hysterectomy , other (cataract removal) - IMMUNIZATION STATUS Childhood Immunizations: See Nurse Assessment Flu Vaccine: See Nurse Assessment - FAMILY HISTORY Family History: reviewed, not pertinent - SOCIAL HISTORY Smoking: non-smoker Substance Use: none/never Alcohol Use Frequency: never Living Situation: care facility Physical Exam-General - PHYSICAL EXAM-ADULT Initial Vital Signs Reviewed: Yes - CONSTITUTIONAL General Appearance: appears well, alert, moderate distress, other (nonverbal) - EYES Eyes: PERRL/EOMI, pink conjunctivae - HEAD, EARS, NOSE, MOUTH & THROAT HENMT: normocephalic/atraumatic, moist mucous membranes, normal ENT inspection - NECK Neck: non-tender, full range of motion - RESPIRATORY Respiratory: chest non-tender, normal breath sounds, rhonchi (diffuse) - CARDIOVASCULAR Cardiovascular: normal peripheral pulses, regular rate, rhythm - GASTROINTESTINAL (ABDOMEN) Abdominal Exam: normal bowel sounds, non tender, soft - MUSCULOSKELETAL Back Exam: normal inspection, no CVA tenderness Extremity: normal range of motion, non-tender - SKIN Integumentary: normal color, warm/dry - NEUROLOGIC Neurologic: grossly normal, other (nonverbal) - PSYCHIATRIC Psych/Mental Status: normal mood/affect, other (nonverbal) - HEART Score HEART Score: History: Slightly Suspicious HEART Score: ECG: Normal HEART Score: Age: 45-65 Years HEART Score: Risk Factors for Atherosclerotic Disease: > or = 3 Risk Factors or History of Atherosclerotic Disease HEART Score: Troponin: > or = 3x Normal Limit Total HEART Score:: 5 Progress - PLAN OF CARE/RESULTS Progress/Plan/Lab Results: Vital Signs - 8 hr 07/09/18 08:37 Pulse Rate 123 H Respiratory Rate 30 H Blood Pressure 119/65 O2 Sat by Pulse Oximetry 73 L Laboratory Results - last 24 hr 07/09/18 07/09/18 07/09/18 08:40 08:40 08:40 WBC 22.25 H RBC 2.58 L Hgb 7.7 L Hct 23.4 L MCV 90.7 MCH 29.8 MCHC 32.9 L RDW Std Deviation 13.6 Plt Count 452 H MPV 10.2 Immature Gran % (Auto) 0.2 Neut % (Auto) 87.3 H Lymph % (Auto) 7.1 L [place] % (Auto) 4.5 Eos % (Auto) 0.5 Baso % (Auto) 0.4 Immature Gran # (Auto) 0.05 H Neut # (Auto) 19.42 H Lymph # (Auto) 1.57 [place] # (Auto) 1.00 H Eos # (Auto) 0.12 Baso # (Auto) 0.09 Segmented Neutrophils 89 H Lymphocytes 7 L Monocytes 4 Poikilocytosis 1+ Target Cells 1+ PT INR PTT (Actin FS) Sodium 137 Potassium 4.1 Chloride 97 L Carbon Dioxide 29 Anion Gap 11 BUN 36 H Creatinine 0.8 Estimated GFR/1.73 m2 > 60 BUN/Creatinine Ratio 45 Glucose 199 H Calculated Osmolality 288 Calcium 9.5 Total Bilirubin 0.18 L AST 28 ALT 32 Alkaline Phosphatase 222 H Creatine Kinase Troponin T 0.221 H Total Protein 5.9 L Albumin 2.4 L Globulin 3.5 Albumin/Globulin Ratio 0.7 Plasma Lactate Urine Source Urine Color Urine Turbidity Urine pH Ur Specific [place] Urine Protein Ur Glucose (Stick) Ur Ketones (Stick) Urine Blood Urine Nitrite Urine Bilirubin Urobilinogen Dipstick Urine Leukocytes 07/09/18 07/09/18 07/09/18 08:40 08:40 08:40 WBC RBC Hgb Hct MCV MCH MCHC RDW Std Deviation Plt Count MPV Immature Gran % (Auto) Neut % (Auto) Lymph % (Auto) [place] % (Auto) Eos % (Auto) Baso % (Auto) Immature Gran # (Auto) Neut # (Auto) Lymph # (Auto) [place] # (Auto) Eos # (Auto) Baso # (Auto) Segmented Neutrophils Lymphocytes Monocytes Poikilocytosis Target Cells PT 14.6 INR 1.05 PTT (Actin FS) 36.4 Sodium Potassium Chloride Carbon Dioxide Anion Gap BUN Creatinine Estimated GFR/1.73 m2 BUN/Creatinine Ratio Glucose Calculated Osmolality Calcium Total Bilirubin AST ALT Alkaline Phosphatase Creatine Kinase 74 Troponin T Total Protein Albumin Globulin Albumin/Globulin Ratio Plasma Lactate 0.8 Urine Source Urine Color Urine Turbidity Urine pH Ur Specific [place] Urine Protein Ur Glucose (Stick) Ur Ketones (Stick) Urine Blood Urine Nitrite Urine Bilirubin Urobilinogen Dipstick Urine Leukocytes 07/09/18 11:00 WBC RBC Hgb Hct MCV MCH MCHC RDW Std Deviation Plt Count MPV Immature Gran % (Auto) Neut % (Auto) Lymph % (Auto) [place] % (Auto) Eos % (Auto) Baso % (Auto) Immature Gran # (Auto) Neut # (Auto) Lymph # (Auto) [place] # (Auto) Eos # (Auto) Baso # (Auto) Segmented Neutrophils Lymphocytes Monocytes Poikilocytosis Target Cells PT INR PTT (Actin FS) Sodium Potassium Chloride Carbon Dioxide Anion Gap BUN Creatinine Estimated GFR/1.73 m2 BUN/Creatinine Ratio Glucose Calculated Osmolality Calcium Total Bilirubin AST ALT Alkaline Phosphatase Creatine Kinase Troponin T Total Protein Albumin Globulin Albumin/Globulin Ratio Plasma Lactate Urine Source CATH Urine Color YELLOW Urine Turbidity TURBID Urine pH 5.5 Ur Specific [place] 1.016 Urine Protein 300 A Ur Glucose (Stick) NEGATIVE Ur Ketones (Stick) TRACE A Urine Blood TRACE A Urine Nitrite NEGATIVE Urine Bilirubin NEGATIVE Urobilinogen Dipstick 2 A Urine Leukocytes LARGE A Orders Category Date Time Status Admit - [facility] Routine AdmDCTranf 07/09/18 10:44 Active Cardiac Monitoring DIRECTED Care 07/09/18 09:24 Active FSBS/Accucheck Result AC + HS Care 07/09/18 10:13 Active Joshua Cath Insertion ORDERED Care 07/09/18 10:13 Active IV Insertion ORDERED Care 07/09/18 09:24 Completed Intake and Output-Strict ORDERED Care 07/09/18 10:14 Active Isolation Precautions Setup NOW Care 07/09/18 10:15 Active Notify MD of + Sepsis Screen NOW Care 07/09/18 09:24 Active Notify Physician As Ordered Care 07/09/18 09:24 Active Nursing [Misc. NRSG Communication Order] DIRECTED Care 07/09/18 10:14 Active Nursing- MD Consult Request ROUTINE Care 07/09/18 10:19 Active Nursing- MD Consult Request ROUTINE Care 07/09/18 10:40 Active Update & Confirm Home Medicati ROUTINE Care 07/09/18 10:08 Active Dietary [Dietitian Consult] Routine Cons 07/09/18 10:18 Active Physician/Provider Consults Routine Cons 07/09/18 10:18 Ordered Physician/Provider Consults Routine Cons 07/09/18 10:39 Ordered Wound Care/ET Consult Routine Cons 07/09/18 10:40 Active CHEST-PORTABLE [RAD] Stat Exams 07/09/18 08:55 Completed BASIC METABOLIC PANEL [CHEM] Routine Lab 07/10/18 05:00 Uncollected BLOOD CULTURE [BLDCUL] Stat Lab 07/09/18 09:39 Results CBC WITH DIFF [HEME] Lab 07/10/18 06:00 Uncollected CBC WITH DIFF [HEME] Lab 07/11/18 06:00 Uncollected CBC WITH ELECTRONIC DIFF [HEME] Stat Lab 07/09/18 08:40 Completed CK PROFILE [SP CHEM] Stat Lab 07/09/18 08:40 Completed CK TOTAL [CHEM] Stat Lab 07/09/18 10:12 Ordered COMPREHENSIVE METABOLIC PANEL [CHEM] Stat Lab 07/09/18 08:40 Completed LACTATE, PLASMA [CHEM] Lab 07/09/18 12:30 Uncollected LACTATE, PLASMA [CHEM] Lab 07/09/18 15:30 Uncollected LACTATE, PLASMA [CHEM] Q3H Lab 07/09/18 08:40 Completed PROTIME WITH INR [COAG] Stat Lab 07/09/18 08:40 Completed PTT [COAG] Stat Lab 07/09/18 08:40 Completed SPUTUM CULTURE WITH GRAM STAIN [RM] Stat Lab 07/09/18 10:19 Uncollected TROPONIN T Stat Lab 07/09/18 08:40 Completed URINALYSIS W/POSS RFLX CULT [URINALYSIS] Stat Lab 07/09/18 11:00 Results 0.9% Sodium Chloride Inj [Ns] 1,000 ml Med 07/09/18 10:15 Active IV 75 mls/hr Albuterol 2.5MG/Ipratrop 0.5MG [Duoneb (A & A)] Med 07/09/18 08:56 D iscontinued 3 ml INH NOW ONE Daptomycin [Cubicin] 350 mg Med 07/09/18 10:15 Active 0.9% Sodium Chloride Inj [Ns] 100 ml IV Q24H Enoxaparin [Lovenox] Med 07/10/18 09:00 Active 40 mg SUBQ Q24H Ertapenem 1 gm/Ns [Invanz 1 gm/Ns] Med 07/09/18 10:15 Active 1 gm in 50 ml IV Q24H Insulin Lispro [Humalog] Med 07/09/18 11:00 Active See Protocol SUBQ 0700,1100,1600,2100 Ipratropium [place] Neb [Atrovent Neb] Med 07/09/18 11:30 Active 0.5 mg INH RTQ4H Levalbuterol Neb [Xopenex Neb] Med 07/09/18 11:30 Active 1.25 mg INH RTQ4H Ondansetron [Zofran] Med 07/09/18 10:08 Active 4 mg IV Q4H PRN PRN Piperacillin/Tazobactam [Zosyn] 3.375 gm Med 07/09/18 09:53 Discontinued 0.9% Sodium Chloride Inj [Ns] 50 ml IV NOW Sodium Chloride 0.9% Neb [Ns Neb] Med 07/09/18 10:15 Active 5 ml INH DIRECTED Vancomycin 1 gm/Ns Med 07/09/18 09:52 Discontinued 1 gm in 250 ml IV NOW Aerosol Treatments Routine Oth 07/09/18 08:56 Completed Aerosol Treatments Routine Oth 07/09/18 10:11 Active Aerosol Treatments Stat Oth 07/09/18 08:56 Completed Oxygen Device Stat Oth 07/09/18 09:24 Completed EKG [EKG] Stat Ther 07/09/18 08:55 Ordered Transfer/Admit Order [TRANSFER] Routine Transfer 07/09/18 10:15 Ordered Result Diagrams: 07/09/18 08:40 07/09/18 08:40 - REASSESSMENT Reassessment #1 Time Reassessed: 10:00 Status: improving (Respiratory assisted with pt and she is now on ventilator.) - EKG 1 Time of EKG reading by physician:: 08:51 EKG Read and Signed by:: Jameson Jose EKG Interpretation (*Must complete 3 of following elements*): Abnormal Rate: 119 Rhythm: Sinus tach [place]: normal QRS: other (anterior infarct) [place] Interval: normal ST Wave: normal - XRAY 1 XRAY Study: Chest Impression: Abnormal (FINDINGS: Interval placement of a right-sided PICC line. The tip is in the midsuperior vena cava. No change in the tracheostomy tube. There are infiltrates and/or atelectasis throughout the left lung which have developed since the prior study. The right lung remains clear. IMPRESSION: Interval development of infiltrates and atelectasis in the left lung. Electronically signed by Kian Larios 07/09/2018 9:39 AM) - CONSULTS/PCP/HOSPITALIST Notification #1 *Consult/PCP/Hospitalist*: STEPHEN Gallo for hospitalist Time Discussed: 10:00 Reason/Comments: Low O2 sats Consult Disposition: Admit Departure - Departure Date of Disposition Decision: 07/09/18 Time of Disposition Decision: 10:19 DIAGNOSIS: Healthcare-associated pneumonia Disposition: ADMITTED INPATIENT 09 Certified Medical Emergency: Emergent Condition: Fair - Critical Care Note This patient required my direct & personal management of CC.: Yes Total Time (mins): 32 Critical Care Statement: This patient required my direct personal management to treat or rule out processes, the absence of which, could potentiallly result in sudden, clinically significant life or limb threatening deterioration. Attestation - Physician/ ANA M Attestation Patient care was provided by Advanced Practice Provider:: No The physician spent face to face time with patient:: Yes Advanced Practice Provider documentation review:: Supervising physician onsite and consulted in the evaluation and care of this patient. The physician did have a face to face encounter with the patient. This chart was documented by the indicated scribe, (Samantha Bradford, Mick) and accurately reflects the services I performed and decisions made by me, Jameson Jose MD, as attested by the provider's signature.
[2018-07-09 12:31] LABS: BASO# 0.07 X1000 (0.0-0.2); BASO% 0.3 % (0.0-0.8); EOS# 0.08 X1000 (0.0-0.7); EOS% 0.3 % (0.0-10.0); HEMATOCRIT 23.3 % (37.0-47.0); HEMOGLOBIN 7.5 g/dL (12.0-16.0); IMM GRAN# 0.08 X1000 (0.0-0.04); IMM GRAN% 0.3 % (0.0-0.5); LYMPH# 1.77 X1000 (1.2-3.4); LYMPH% 7.4 % (20.5-51.1); MCH 29.2 PG (27-31); MCHC 32.2 g/dL (33-37); MCV 90.7 FL (81-99); MONO# 1.03 X1000 (0.11-0.59); MONO% 4.3 % (1.7-9.3); MPV 9.8 FL (7.4-10.4); NEUT# 20.94 X1000 (1.4-6.5); NEUT% 87.4 % (42.2-75.2); PLT 426 X1000 (130-400); RBC 2.57 XMIL (4.2-5.4); RDW 13.5 % (11.5-14.5); WBC 23.97 X1000 (4.8-10.8)
[2018-07-09 12:43] LABS: URINE CASTS NONE SEEN; URINE YEAST PRESENT
[2018-07-09 12:58] LABS: AGAP 11; BANDS 1 % (0-1); BUN 40 mg/dL (8-22); CALCIUM 9.4 mg/dL (8.8-10.2); CHLORIDE 97 mmol/L (98-107); COSMO 287; CREATININE 0.8 mg/dL (0.5-0.9); ESTIMATED GFR > 60; GLUCOSE 229 mg/dL (70-104); LYMPHS 7 % (21-51); MONO 3 % (1-9); POTASSIUM 4.2 mmol/L (3.5-5.1); SEGS 89 % (42-75); SODIUM 135 mmol/L (136-145); TCO2 27 mmol/L (25-35)
[2018-07-09] MEDS: HUMALOG SUBQ SCH ×3 (13:11→20:12)
[2018-07-09] MEDS: INVANZ 1 GM/NS 1 GM/50 ML IVPB IV SCH (13:12)
--- NOTE | 2018-07-09 13:21 | HISTORY AND PHYSICAL ---
CHIEF COMPLAINT: Hypoxemia, respiratory failure. HISTORY OF PRESENT ILLNESS: This is a 52-year-old female, with a history of chronic respiratory failure requiring a trach, sacral decubitus, with VRE, as well as sacral osteomyelitis. She presents via EMS after being found to have low O2 saturations at [facility]. EMS stated on their arrival, O2 saturation was in the low 60s. They did apply a non-rebreather mask to her trach with O2 sats increasing to the 80s. On arrival to the emergency room she was suctioned well, O2 saturations did raise to the 90 to 92 range. She was found to have left lung pneumonia, for which she was given vancomycin and Zosyn in the emergency room, and she is being admitted for further evaluation and treatment. PAST MEDICAL HISTORY: Vancomycin-resistant enterococcus from sacral decubitus. Sacral osteomyelitis. Diabetes mellitus, type 2. Anemia of chronic disease. Hepatitis C. Multi-infarct dementia. Chronic trach. PEG tube. PAST SURGICAL HISTORY: Tracheostomy placement, PEG tube placement, and cholecystectomy. SOCIAL HISTORY: Denies alcohol, tobacco, or illicit drug use. ALLERGIES: Aspirin, codeine, morphine, and pregabalin. HOME MEDICATIONS: A list will be obtained by the nursing staff and once verified we will review and restart as appropriate. REVIEW OF SYSTEMS: Unable to obtain. PHYSICAL EXAMINATION: GENERAL: This is a 52-year-old female, who is lying on the stretcher in the emergency room, in no distress. VITAL SIGNS: Blood pressure is 121/64, with a heart rate of 101, respirations are 22, with room air saturation of 92. HEENT: Eyes, pupils are equal, round, and react to light. EOMs are intact. Head is normocephalic, atraumatic. Mucous membranes are moist. NECK: Supple, with trachea midline. Tracheostomy site is clear, with no mucus or exudate. CARDIOVASCULAR: Regular rate and rhythm. S1 and S2 appreciated. She has no lower extremity edema. PULMONARY: Breath sounds, with rhonchi scattered throughout. Respirations per ventilator via trach. GASTROINTESTINAL: The abdomen is soft, nontender, nondistended. PEG tube is noted, with site clear. SKIN: Warm and dry. Dressing is intact to the sacral area. NEUROLOGIC: She does open her eyes. She does follow commands. She nods yes and no. DIAGNOSTIC DATA: WBC is 22.2, with hemoglobin 7.7, hematocrit 23.4, and platelets of 452,000. Sodium is 137, potassium 4.1, BUN 36, creatinine 0.8, glucose of 199. Alkaline phosphatase is 222. Troponin is 0.221. Blood cultures are pending. Chest x-ray reveals interval development of infiltrates and atelectasis in the left lung. ASSESSMENT AND PLAN: 1. Acute on chronic respiratory failure. We will continue with pulmonary toilet, continue ventilator assist, wean oxygen as appropriate. We will consult Pulmonology. 2. Left-sided pneumonia. Blood cultures were obtained. She was given vancomycin and Zosyn in the emergency room. We will use Xopenex and Atrovent nebs q.4h. She will receive gentle hydration. 3. VRE sacral decubitus, stage IV. She is currently on a regimen of daptomycin 350 mg and ertapenem 1 g every [address] Manav Zarco. We will continue this. We will consult Dr. Zarco. 4. Sacral osteomyelitis. Antibiotics as stated above. We are aware. 5. Leukocytosis. We will continue antibiotics as stated above. Blood cultures have been obtained. We will obtain a sputum specimen. 6. Diabetes mellitus, type 2. We will do pattern blood glucose, sliding scale insulin. 7. Elevated troponin. In review of the patient's past labs, troponin have been persistently elevated since 03/2018. We are aware. 8. History of multi-infarct dementia. The patient is bed-bound. 9. For DVT prophylaxis we will use SCDs. 10. GI prophylaxis. 11. Nutrition. The patient is on tube feedings. We will consult Dietary for management of nutrition. Further treatments pending hospital course. Patient seen and examined by me face to face, all the laboratory, vitals signs and images were reviewed, Mrs Marrero is an unfortunate 52 year old lady with multiple issues, recently discharged with antibiotics due to and infected decubitus ulcer/osteomyelitis, also she has a history of multiple CVAs and likely vascular dementia, she is able to communicate, she nods her head for yes or no, but she is nor able to move and she is bedbound, presenting with pneumonia on the left side and hypoxemic respiratory failure, acute on chronic, she has a tracheostomy in place, bilateral rhonchi more prominent on the left side, she will be placed on antibiotics, breathing treatment, O2, we will consult pulmonary and ID department, wound care, I agree with the rest of the BONDACTOR MACHINE OPERATOR's assessment and plan, Prasad Velasquez MD Dictated by STEPHEN Kovacs for Prasad Nunes MD cc: STEPHEN Kovacs MD [facility]
[2018-07-09 14:19] LABS: ALLEN TEST YES; BE 6.8 mmoll (-3.0-3.0); BLOOD TYPE ARTERIAL; HCO3-(ACT) 30.3 mmoll (20.0-26.0); O2(CT) 10.1 mL/dL (15.0-23.0); O2HB 96.9 % (95.0-99.0); PCO2(98.6) 33 mmHg (35-45); PO2(98.6) 100 mmHg (60-100); SAMPLE BLOOD; SAO2 99.8 % (95.0-100.0); SRATE 12 BPM; THB 7.3 g/dL (11.5-17.4); TVOL 600 mL
[2018-07-09 14:25] LABS: MODALITY VENTILATOR; pH(98.6) 7.56 (7.35-7.45)
[2018-07-09] MEDS: TYLENOL GT PRN (14:31)
[2018-07-09] MEDS: MUCOMYST 20% INH SCH ×2 (16:24→19:56)
--- NOTE | 2018-07-09 18:06 | PULMONOLOGY CONSULTATION ---
DATE: 07/09/2018 REQUESTING PHYSICIAN: Dr. Galvan. REASON FOR CONSULTATION: Respiratory failure. HISTORY OF PRESENT ILLNESS: Ms. Marrero is a 52-year-old white female with history of multiinfarct dementia, prior cardiac arrest with possible anoxic encephalopathy, sacral decubitus and sacral osteomyelitis, who has had near monthly admissions to this hospital. The patient was discharged 06/24/2018 after a 2 week stay associated with Bacteroides fragilis bacteremia possibly related to her sacral decubitus. The patient was noted to have low oxygen saturations today and was brought to the emergency room. The patient has previously had a tracheostomy placed. She was placed on mechanical ventilation. Chest x-ray reveals new infiltrates throughout the left lung which were not present on prior film. PAST MEDICAL HISTORY: 1. Multiinfarct dementia. 2. Cardiac arrest, possibly with a stroke. Details are limited. 3. Status post tracheostomy placement. 4. Status post PEG tube placement. 5. Diabetes mellitus. 6. Hepatitis C. 7. Sacral osteomyelitis currently being treated. Most recent cultures revealed a Enterococcus faecium. Previous sputum cultures have revealed a childers resistant Acinetobacter baumannii. SOCIAL HISTORY: Prior tobacco use noted in nursing notes. Not further quantitated. [facility] FAMILY HISTORY: Not immediately available. REVIEW OF SYSTEMS: Cannot be obtained. PHYSICAL EXAMINATION: Reveals a frail, chronically ill-appearing white female who looks about the room but does not interact with the examiner. Temperature 101.2 degrees, BP 126/84, heart rate 96, respiratory rate 15, oxygen saturation 100%.HEENT: Pupils are equal. Oropharynx appears clear. Neck: Supple. There are coarse rhonchi throughout both lung zimmer. Cardiac: S1, S2. Abdomen: Soft. Extremities: Reveal chronic edema and muscle wasting. LABORATORIES: Urinalysis reveals myi-dlpyfytu-jr-count white blood cells but negative nitrites. Chest x-ray reveals new infiltrates as outlined above. Arterial blood gas on mechanical ventilation reveals a pH 7.56, pCO2 of 33, PO2 of 100. White blood count 23.9 thousand, hemoglobin 7.5, platelet count 426,000, glucose 266. IMPRESSION: A 52-year-old with 1. Acute hypoxemic respiratory failure. 2. Fevers. 3. Pneumonia. 4. Leukocytosis. 5. Urinary tract infection. 6. Sacral decubitus. 7. Probable protein calorie malnutrition, additional evaluation pending. 8. Status post tracheostomy placement. 9. Status post percutaneous endoscopic gastrostomy tube placement. 10. Anoxic encephalopathy/multiinfarct dementia. RECOMMENDATIONS: 1. Continue full ventilatory support pending decrease in oxygen requirements/AA gradient. 2. Initiate bronchial hygiene. 3. Agree with sputum for C and S. 4. Initiate tube feeds and protein supplements. 5. Agree with plans for wound care nurse to evaluate the decubitus. 6. Antibiotics per Infectious Disease. 7. Additional recommendations pending hospital course. cc: Ariel Paredes MD
[2018-07-10] MEDS: ATROVENT NEB INH SCH ×6 (03:15→23:11)
[2018-07-10] MEDS: XOPENEX NEB INH SCH ×6 (03:15→23:11)
[2018-07-10 04:48] LABS: ALLEN TEST YES; BE 5.3 mmoll (-3.0-3.0); BLOOD TYPE ARTERIAL; METHB 0.8 % (0.0-1.5); O2(CT) 8.4 mL/dL (15.0-23.0); O2HB 92.8 % (95.0-99.0); PCO2(98.6) 34 mmHg (35-45); PO2(98.6) 57 mmHg (60-100); SAMPLE BLOOD; SAO2 98.1 % (95.0-100.0); SRATE 8 BPM; THB 6.4 g/dL (11.5-17.4); TVOL 600 mL; pH(98.6) 7.53 (7.35-7.45)
[2018-07-10 04:51] LABS: MODALITY VENTILATOR
[2018-07-10 05:02] LABS: BASO# 0.08 X1000 (0.0-0.2); BASO% 0.5 % (0.0-0.8); EOS# 0.76 X1000 (0.0-0.7); EOS% 4.8 % (0.0-10.0); HEMATOCRIT 21.1 % (37.0-47.0); HEMOGLOBIN 6.8 g/dL (12.0-16.0); IMM GRAN# 0.12 X1000 (0.0-0.04); IMM GRAN% 0.8 % (0.0-0.5); LYMPH# 1.98 X1000 (1.2-3.4); LYMPH% 12.4 % (20.5-51.1); MCH 29.2 PG (27-31); MCHC 32.2 g/dL (33-37); MCV 90.6 FL (81-99); MONO# 0.74 X1000 (0.11-0.59); MONO% 4.6 % (1.7-9.3); MPV 10.4 FL (7.4-10.4); NEUT# 12.25 X1000 (1.4-6.5); NEUT% 76.9 % (42.2-75.2); PLT 375 X1000 (130-400); RBC 2.33 XMIL (4.2-5.4); RDW 13.6 % (11.5-14.5); WBC 15.93 X1000 (4.8-10.8)
[2018-07-10 05:21] LABS: AGAP 9; ALB/GLOB RATIO 0.5; ALKALINE PHOSPHATASE 208 U/L (32-104); BUN 43 mg/dL (8-22); CALCIUM 9.3 mg/dL (8.8-10.2); CHLORIDE 103 mmol/L (98-107); COSMO 291; CREATININE 0.7 mg/dL (0.5-0.9); ESTIMATED GFR > 60; GLUCOSE 211 mg/dL (70-104); GOT 25 U/L (10-30); GPT 25 U/L (10-36); MAGNESIUM 1.8 mg/dL (1.5-2.7); PHOSPHORUS 2.7 mg/dL (2.7-4.5); POTASSIUM 3.6 mmol/L (3.5-5.1); SODIUM 137 mmol/L (136-145); TCO2 25 mmol/L (25-35); TOTAL BILIRUBIN 0.16 mg/dL (0.20-1.00); TOTAL PROTEIN 5.9 g/dL (6.3-8.3)
[2018-07-10] MEDS: HUMALOG SUBQ SCH ×4 (06:13→20:06)
[2018-07-10] MEDS: MUCOMYST 20% INH SCH ×2 (07:45→19:15)
--- NOTE | 2018-07-10 08:03 | PROGRESS NOTE ---
DATE: 07/10/2018 SUBJECTIVE: This patient is lying comfortably in bed. She has been sleepy but arousable and answering my questions by nodding her head yes or no. 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 OBJECTIVE: Vital Signs: Temperature 100 degrees, pulse 103, respiratory rate 21, blood pressure 153/81, oxygen saturation 100% on trach collar. HEENT: Head is normocephalic and no trauma. PERRLA. Neck: Supple. She does have a tracheostomy in place, central trachea. Chest: Coarse breath sounds bilaterally with rhonchi mostly on the left side. No wheezing. Abdomen: Soft. PEG tube is noted and is clean. Extremities: No edema. No clubbing. She does have decreased muscle mass. Neurologic: This patient is sleepy but arousable. She opens her eyes. She is follow commands. She nods yes and no. She does have quadriparesis. LABORATORY: WBC 15.9, hemoglobin 6.8, hematocrit 21.1, platelets 375,000, sodium 137, potassium 3.6, chloride 103, bicarbonate 25, BUN 47, creatinine 0.7, glucose 211, calcium 9.3, phosphorus 2.7, magnesium 1.8, AST 25, ALT 25, alkaline phosphatase 208, albumin 2, and pre-albumin 10.5. ASSESSMENT AND PLAN: 1. Acute on chronic respiratory failure. Continue with same management. She does have a trach collar. Pulmonary Department on board. We will continue with oxygen and antibiotics. 2. Left-sided pneumonia. Yesterday she was given vancomycin and Zosyn in the emergency room. We will give her respiratory treatment and gentle hydration. She has been receiving also ertapenem and daptomycin. She does have a positive culture that showed gram-positive cocci in blood. Infectious Disease Department has been consulted and will monitor. They will change her medications. 3. Vancomycin-resistant enterococci sacral decubitus stage 4 ulcer. Continue with same management for now. Infectious Disease Department has been consulted as well as Wound Care. 4. Sacral osteomyelitis, as above. 5. Leukocytosis. Continue with antibiotics. 6. Bacteremia. We do have a positive blood culture that showed gram-positive cocci. I will wait for Infectious Disease Department recommendations. 7. Elevated troponins. It looks like this is his her baseline. We are aware she is DNR. 8. History of multi-infarct dementia. The patient is bed-bound. 9. Deep vein thrombosis prophylaxis with sequential compression devices. 10. Gastrointestinal prophylaxis. Continue with same management. 11. Nutritional status. We have requested an evaluation by the workers compensation defense attorney. She has been receiving tube feedings. 12. Severe protein calorie malnutrition. Will continue feeding this patient. cc: Prasad Nunes MD
--- NOTE | 2018-07-10 08:07 | Diag Imaging Result Doc PS360 ---
EXAM: CHEST-PORTABLE INDICATION: abnormal exam TECHNIQUE: One view COMPARISON: 07/09/2018 FINDINGS: Support tubes and lines are in stable positions. Atelectasis and/or infiltrate at the left mid and upper lung zone has improved. There is still atelectasis +/- infiltrate at the left lung base. No new consolidations are identified. Cardiac silhouette is stable. IMPRESSION: Interval overall improvement on the left. Electronically signed by Feliciano Ruiz 07/10/2018 8:04 AM
[2018-07-10] MEDS: ZYLOPRIM PEG SCH (09:48)
[2018-07-10] MEDS: PLAVIX PEG SCH (09:48)
[2018-07-10] MEDS: LOVENOX SUBQ SCH (09:48)
[2018-07-10] MEDS: INVANZ 1 GM/NS 1 GM/50 ML IVPB IV SCH (11:42)
[2018-07-10] MEDS ORDERED: CATHFLO IV ONE (11:59)
[2018-07-10] MEDS ORDERED: STERILE WATER INJ. INJ ONE (11:59)
[2018-07-10] MEDS ORDERED: VANCOMYCIN IV PER PHARMACY MISC SCH (12:30)
[2018-07-10] MEDS: NS 1,000 ML IV SCH (13:06)
--- NOTE | 2018-07-10 15:27 | PULMONOLOGY PROGRESS NOTE ---
DATE: 07/10/2018 SUBJECTIVE: The patient is awake and alert. She is currently on a ventilator with tracheostomy. She intermittently follows commands. OBJECTIVE: Vital Signs: Maximum temperature in the last 24 hours 100 degrees, blood pressure 116/61, heart rate 104, respiratory rate 12, oxygen saturation 100%. HEENT: Pupils are equal. Oropharynx appears clear. Neck: Is supple. Chest: Reveals coarse rhonchi bilaterally. Cardiac: S1-S2. Abdomen: Is soft with good bowel sounds. Extremities: Reveal trace peripheral edema. LABORATORIES: 1. Chest x-ray reveals marginal improvement in the left upper lobe. Continued infiltrate persists. Microbiology is growing a gram-negative bianca in the sputum, 4+ quantitation. 2. White blood count 15.9, hemoglobin 6.8, platelet count 375,000. Arterial blood gas pH 7.53, pCO2 of 34, pO2 of 57 on 40% FiO2. IMPRESSION: A 52-year-old with 1. Acute hypoxemic respiratory failure. 2. Gram-negative pneumonia. 3. Fevers. 4. Leukocytosis. 5. Sacral decubitus. 6. Protein calorie malnutrition. 7. Anoxic encephalopathy with multiinfarct dementia. RECOMMENDATION: 1. Continue current antibiotics to be managed by Infectious Disease. 2. Continue bronchial hygiene. 3. Will begin weaning with radiographic improvement and decreased oxygen requirements. cc: Ariel Paredes MD
--- NOTE | 2018-07-10 15:47 | INFECTIOUS DISEASE PROGRESS NO ---
DATE: 07/10/2018 PRESENT ILLNESS: The patient has the following infections: She has an infected sacral wound, there is an underlying osteomyelitis involving the sacrum, there is a left lung pneumonia. The patient has 1 of 2 blood cultures positive for gram-positive coccus. 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 MEDICATIONS: I agree with treating the patient with ertapenem and vancomycin pending culture results. DISCUSSION: The patient is unable to provide any history. No family members present. PHYSICAL EXAMINATION: Vital Signs: Temperature is 99, pulse 109, respirations 13, blood pressure 149/81. Patient is 5 feet tall and weighs 116 pounds. General: This is a chronically ill- appearing middle-aged female. She is in no acute distress. She is obtunded. Head, Eyes, Ears, Nose and Throat: No drainage was noted from the nose or ears. She did not open her eyes and did not respond to verbal stimuli. Neck: The patient has a tracheostomy in place. Lungs: Clear to auscultation. Cardiovascular: Heart rate is regular. Abdomen: Soft and nontender. There is a G-tube in place. The site is not erythematous or purulent. Back: In the sacral area there is a sacral ulcer. It is approximately 6 to 7 cm in diameter and it has devitalized tissue at the base of the decubitus ulcer. There is no surrounding erythema. Neurologic: The patient is obtunded. She did respond to verbal stimuli. She did not have a tremor. LAB AND X-RAY: CBC yesterday was 23,970. Today the CBC has a white blood cell count of 15,930, hemoglobin 6.8, platelet count 375,000. Blood gases show a pH of 7.53, a pO2 of 57, a pCO2 of 34, creatinine 0.7. GFR is greater than 60. Alkaline phosphatase is 208. Urinalysis shows white cells but no bacteria. Sputum is growing a gram-negative bianca. One of 2 blood cultures is growing a gram-positive coccus. Urine cultures negative. Chest x-ray shows improvement of the left lung atelectasis/infiltrates. ASSESSMENT AND PLAN: As mentioned above, the patient has an infected sacral decubitus ulcer with underlying osteomyelitis. The patient has pneumonia. She also previously had Bacteroides bacteremia. My plan is for now to continue ertapenem and vancomycin pending culture results. The patient's 1 out of 2 blood cultures positive for gram-positive coccus most likely is a contaminant and does not require treatment. It should be noted, however, that the patient already is on vancomycin, so there is coverage for most any gram-positive coccus. COMORBIDITIES: Include the following: Dementia, cardiac arrest, chronic respiratory failure with need of a tracheostomy, diabetes mellitus and hepatitis C. cc: Manav Zarco MD
[2018-07-10] MEDS: TYLENOL GT PRN (16:08)
[2018-07-11] MEDS: NS 1,000 ML IV SCH ×2 (02:47→15:23)
[2018-07-11] MEDS: XOPENEX NEB INH SCH ×6 (03:26→23:29)
[2018-07-11] MEDS: ATROVENT NEB INH SCH ×6 (03:26→23:29)
[2018-07-11 04:53] LABS: ALLEN TEST YES; BE 4.2 mmoll (-3.0-3.0); BLOOD TYPE ARTERIAL; HCO3-(ACT) 28.2 mmoll (20.0-26.0); METHB 1.3 % (0.0-1.5); MODALITY VENTILATOR; O2(CT) 11.3 mL/dL (15.0-23.0); O2HB 96.7 % (95.0-99.0); PCO2(98.6) 40 mmHg (35-45); PO2(98.6) 131 mmHg (60-100); SAMPLE BLOOD; SAO2 99.5 % (95.0-100.0); SRATE 8 BPM; THB 8.1 g/dL (11.5-17.4); TVOL 600 mL; pH(98.6) 7.46 (7.35-7.45)
[2018-07-11] MEDS: HUMALOG SUBQ SCH ×4 (06:05→20:02)
--- NOTE | 2018-07-11 07:20 | Diag Imaging Result Doc PS360 ---
EXAM: CHEST-PORTABLE INDICATION: Vent Protocol TECHNIQUE: One view COMPARISON: 07/10/2018 FINDINGS: Support tubes and lines are in stable positions. Atelectasis and/or infiltrate at the left lung base has improved. No new consolidation is identified. Cardiac silhouette is stable. IMPRESSION: Interval improvement as described. Electronically signed by Fleiciano Ruiz 07/11/2018 7:18 AM
--- NOTE | 2018-07-11 08:01 | PROGRESS NOTE ---
DATE: 07/11/2018 SUBJECTIVE: Patient is lying comfortably in bed. She has been sleepy but arousable, no changes compared with yesterday. She is tolerating feeding tube. She is slightly tachycardic at 101 to 105 on the monitor. Oxygen saturation 100% on mechanical ventilation. Blood pressure is stable. OBJECTIVE: Vital Signs: Temperature 98.8 degrees, pulse 101, respiratory rate 15, blood pressure 119/66, and oxygen saturation 100% on mechanical ventilation. HEENT: Head normocephalic. No trauma. PERRLA. Neck: Supple. She does have a tracheostomy in place. Central trachea. Chest: Coarse breath sounds bilaterally with rhonchi mostly at the left side. No wheezing. Abdomen: Soft. PEG tube is noted and is clean. Extremities: No edema. No clubbing. No cyanosis. She does have decreased muscle mass. Neurological: The patient is sleepy, but arousable. She opens her eyes. She is following commands. She notes for yes and no. She does have quadriparesis. DIAGNOSTIC STUDIES: Laboratory pending lab work at this moment. ASSESSMENT AND PLAN: 1. Acute on chronic respiratory failure. Continue with the same management. She is on mechanical ventilation. Pulmonary Department on board. Continue with antibiotics. 2. Left-sided pneumonia. Continue with vancomycin and ertapenem. Infectious Disease Department on board. 3. 1/2 gram positive cocci/coagulase-negative Staphylococcus, likely a contaminant. This is a blood culture. 4. VRE sacral decubitus stage IV ulcer. Continue with same management for now. Infectious Disease Department on board as well as Wound Care. 5. Sacral osteomyelitis, as above. 6. Leukocytosis. Continue with antibiotics. Pending laboratory today. 7. Elevated troponin. It looks like this is her baseline. We are aware. She is DNR. 8. History of multi-infarct dementia. This patient is bed bound. 9. Deep vein thrombosis prophylaxis with sequential compression devices. 10. Gastrointestinal prophylaxis. Continue with the same management. 11. Nutritional status. This patient has severe protein calorie malnutrition. She is tolerating her feeding tubes. We will continue with same management. The naval designer is on board. CRITICAL CARE TIME: 30 minutes. cc: Prasad Nunes MD
[2018-07-11] MEDS: MUCOMYST 20% INH SCH ×2 (08:12→19:13)
[2018-07-11 08:21] LABS: BASO# 0.06 X1000 (0.0-0.2); BASO% 0.4 % (0.0-0.8); EOS# 0.32 X1000 (0.0-0.7); HEMATOCRIT 23.8 % (37.0-47.0); HEMOGLOBIN 7.7 g/dL (12.0-16.0); IMM GRAN# 0.05 X1000 (0.0-0.04); IMM GRAN% 0.3 % (0.0-0.5); LYMPH# 1.15 X1000 (1.2-3.4); MCH 28.6 PG (27-31); MCHC 32.4 g/dL (33-37); MCV 88.5 FL (81-99); MONO# 0.64 X1000 (0.11-0.59); MONO% 3.9 % (1.7-9.3); MPV 10.3 FL (7.4-10.4); NEUT# 14.12 X1000 (1.4-6.5); NEUT% 86.4 % (42.2-75.2); PLT 365 X1000 (130-400); RBC 2.69 XMIL (4.2-5.4); RDW 14.9 % (11.5-14.5); WBC 16.34 X1000 (4.8-10.8)
[2018-07-11 08:28] LABS: AGAP 10; ALB/GLOB RATIO 0.5; ALBUMIN 1.9 g/dL (3.5-5.0); ALKALINE PHOSPHATASE 196 U/L (32-104); BUN 38 mg/dL (8-22); CHLORIDE 112 mmol/L (98-107); COSMO 306; CREATININE 0.5 mg/dL (0.5-0.9); ESTIMATED GFR > 60; GLUCOSE 178 mg/dL (70-104); GOT 22 U/L (10-30); GPT 23 U/L (10-36); POTASSIUM 3.4 mmol/L (3.5-5.1); SODIUM 147 mmol/L (136-145); TCO2 25 mmol/L (25-35); TOTAL BILIRUBIN 0.19 mg/dL (0.20-1.00); TOTAL PROTEIN 5.9 g/dL (6.3-8.3)
[2018-07-11 08:50] LABS: BANDS 2 % (0-1); LYMPHS 6 % (21-51); SEGS 92 % (42-75)
[2018-07-11] MEDS: ZYLOPRIM PEG SCH (09:23)
[2018-07-11] MEDS: PLAVIX PEG SCH (09:23)
[2018-07-11] MEDS: LOVENOX SUBQ SCH (09:23)
--- NOTE | 2018-07-11 10:45 | EKG Report ---
Test Performed on : 07/09/2018 08:51:01 AM Test Reason : dysp Blood Pressure : / mmHG Vent. Rate : 119 BPM Atrial Rate : 119 BPM P-R Int : 122 ms QRS Dur : 076 ms QT Int : 312 ms P-R-T Axes : 075 -09 055 degrees QTc Int : 438 ms Sinus tachycardia. Anterior infarct (cited on or before 03-APR-2018) Abnormal ECG When compared with ECG of 08-JUN-2018 21:32, (Unconfirmed) Questionable change in initial forces of Lateral leads Unconfirmed Result
[2018-07-11] MEDS ORDERED: VANCOMYCIN 1 GM/NS 1 GM/250 ML IVPB IV SCH (11:00)
[2018-07-11] MEDS: MERREM 1 GM in NS 50 ML IV SCH ×2 (11:10→18:05)
--- NOTE | 2018-07-11 11:31 | INFECTIOUS DISEASE PROGRESS NO ---
DATE: 07/11/2018 PRESENT ILLNESS: The patient has an infected sacral wound with gram-negative rods and there is an underlying osteomyelitis of the sacrum as well. The patient also has a left lung pneumonia. The patient has 1 of 2 blood cultures positive for a coagulase-negative Staph. This represents a contaminant and not a pathogen. MEDICATIONS: The patient is on a combination currently of ertapenem and vancomycin. PHYSICAL EXAMINATION: Vital Signs: Temperature 99.5 degrees, pulse 93, respirations 18, blood pressure 132/67. General: This is an ill-appearing middle-aged female. She is in no acute distress and today she seems more alert. Head/eyes/ears/nose/throat: She can hear my spoken words and see near objects. She does not have any white patches on her tongue. Neck: The patient has a permanent tracheostomy in place. Lungs: Clear to auscultation. Cardiovascular: Heart rate is regular. Abdomen: Soft and nontender. The G-tube site is not purulent or erythematous. Neurologic: The patient is awake. She does not have a tremor. She did answer questions by shaking her head yes or no. Back: The patient's sacral decubitus ulcer has a dressing on it. The dressing is intact. LABORATORY AND X-RAY: Patient's sputum is growing out Acinetobacter which is multiply drug resistant to all antibiotics except gentamicin and sputum is growing a multiple drug-resistant Acinetobacter. It is only allergic and is only susceptible to tobramycin and gentamicin and resistant to all the other drugs that were tested against it including cefepime, ceftazidime, Septra and Zosyn as well as Unasyn. The a the in the CC is chest x-ray shows a left lower lobe infiltrate which is smaller today than it was yesterday. Creatinine is 0.5. The sacral decubitus is growing a gram-negative bianca. Urine cultures negative. One of 2 blood cultures shows an coagulase-negative Staph. This is a contaminant and does not require treatment. The sputum grew a multiple drug-resistant Acinetobacter as mentioned above. The decubitus is growing a gram-negative bianca and hopefully this organism will be covered by the meropenem that we are going to give the patient for the Acinetobacter in her sputum. The patient's 1 of 2 blood cultures grew a coagulase-negative Staph. This is a contaminant and does not require antibiotic therapy. CBC shows a white count of 16,340, hemoglobin 7.7, platelet count 365,000. Blood gases show a pH of 7.61, a PO2 of 131 and a pCO2 of 40. Chest x-ray shows left lower lobe infiltrates better. Creatinine 0.5. GFR is greater than 60. ASSESSMENT AND PLAN: 1. I am going to discontinue ertapenem and vancomycin and instead put the patient on meropenem. Also I have requested that the Acinetobacter be sent to determine if it is susceptible to meropenem. 2. Comorbidities in this patient include the following: Dementia, cardiac arrest, chronic respiratory failure with need of a tracheostomy, diabetes mellitus, and hepatitis C. cc: Maanv Zarco MD
[2018-07-11 12:08] LABS: ALLEN TEST YES; BLOOD TYPE ARTERIAL; HCO3-(ACT) 28.1 mmoll (20.0-26.0); O2(CT) 7.3 mL/dL (15.0-23.0); O2HB 97.9 % (95.0-99.0); PCO2(98.6) 42 mmHg (35-45); PO2(98.6) 78 mmHg (60-100); SAMPLE BLOOD; SAO2 100.5 % (95.0-100.0); THB 5.2 g/dL (11.5-17.4); pH(98.6) 7.44 (7.35-7.45)
[2018-07-11 12:09] LABS: MODALITY COOL AEROSOL
[2018-07-11] MEDS ORDERED: LOPRESSOR IV ONE (12:37)
--- NOTE | 2018-07-11 13:34 | PULMONOLOGY PROGRESS NOTE ---
DATE: 07/11/2018 SUBJECTIVE: The patient is awake. She does not follow commands. She appears to be comfortable. OBJECTIVE: Vital Signs: The patient has been afebrile for the last 24 hours. Blood pressure 154/85, heart rate 104, respiratory rate 14, oxygen saturation 100%. HEENT: Pupils are equal. Oropharynx appears clear. Neck: Is supple with tracheostomy in place. Chest: Reveals occasional rhonchi bilaterally. Cardiac: S1, S2. Abdomen: Is soft. Extremities: Are without edema. LABORATORIES: Chest x-ray reveals significant improvement with near clearing of the left lung. White blood count 16.3, hemoglobin 7.7, platelet count 365,000. Sodium 147, potassium 3.4, chloride 112, bicarbonate 25, BUN 38, creatinine 0.5. Arterial blood gas, pH 7.46, pCO2 40, PO2 of 131. IMPRESSION: A 52-year-old with multiinfarct dementia, bedbound status, status post tracheostomy, advanced decubitus ulcer, drug-resistant Acinetobacter in sputum, with gram-negative bianca growing in her wounds. The patient's prognosis is poor. She has a component of protein calorie malnutrition. She has acute on chronic hypoxemic respiratory failure. She has osteomyelitis. RECOMMENDATIONS: Tracheostomy collar trial has been performed and has been tolerated. Post tracheostomy collar trial arterial blood gas was pH 7.44, pCO2 42, pCO2 78. PLAN: 1. Place back on tracheostomy collar. 2. Antibiotics per Infectious Disease. 3. Continue tube feeds. 4. Patient's code status is listed as DNR level 1. It is not completely clear that she should have been initiated on mechanical ventilation during this hospitalization and should be clarified. cc: Ariel Paredes MD
--- NOTE | 2018-07-11 17:40 | GENERAL SURGERY CONSULTATION ---
DATE: 07/11/2018 REQUESTING PHYSICIAN: Hospitalist. REASON FOR CONSULTATION: Consult concerning decubitus ulcer. HISTORY OF PRESENT ILLNESS: A 52-year-old female, well known to me, who has a history of respiratory failure requiring tracheostomy, sacral decubitus, VRE, and sacral osteomyelitis, presenting to the emergency department after having low saturations at [facility]. She was apparently found to have a left lung pneumonia for which she has been given vancomycin and Zosyn. She has been admitted. I have seen her previously for this pressure ulcer which is going to be very difficult to treat. The patient is nonverbal so cannot give further information. PAST MEDICAL HISTORY: VRE from the sacral decubitus, sacral osteomyelitis, diabetes mellitus type 2, anemia of chronic disease, hepatitis C, multiinfarct dementia, chronic tracheostomy, PEG tube. PAST SURGICAL: Includes tracheostomy, PEG tube, and cholecystectomy. SOCIAL: Unobtainable secondary to patient's nonverbal status. ALLERGIES: Aspirin, codeine, morphine, pregabalin. HOME MEDICATIONS: Reviewed. REVIEW OF SYSTEMS: Difficult to obtain secondary to patient's mental status and inability to talk. FAMILY HISTORY: Unable to obtain. PHYSICAL EXAMINATION: Vital Signs: Patient is currently with temperature 99.5 degrees, pulse somewhat tachycardic at 119, blood pressure 152/87. General: A chronically ill-appearing female, who looks older than stated age. HEENT: Normocephalic, atraumatic. Pupils equal, round, and reactive to light. Mucous membranes moist. Oropharynx benign. Neck: Supple. Tracheostomy in place. Cardiovascular: Tachycardic. Lungs: Some coarse sounds noted. Abdomen: Soft, nontender. Sacral area: Stage 4 pressure ulcer with large wound with some slough that is well attached and brittle bone, consistent with osteomyelitis. Neurologic: Follows commands, but nonverbal. LABORATORY: White blood cell count 16, hematocrit 23, platelet count is 365,000. Remainder of labs reviewed. ASSESSMENT AND PLAN: A 52-year-old female with multiple medical comorbidities, now with continued sacral decubitus ulcer. 1. Sacral decubitus ulcer. This time is stage 4. Very difficult to treat. She has got essentially brittle sacrum and coccyx. A low chance that this healing with any kind of major surgical intervention,, and I do not think the patient would tolerate any major surgical interventions so at this point continue Jhon and Vashe and local wound care and offloading pressure as best as possible. 2. Multiple medical comorbidities. Currently being managed by the hospitalist service. cc: Carlito Goncalves MD
[2018-07-11] MEDS: TYLENOL GT PRN (18:13)
[2018-07-12] MEDS: MERREM 1 GM in NS 50 ML IV SCH ×3 (01:30→17:51)
[2018-07-12] MEDS: XOPENEX NEB INH SCH ×6 (03:41→23:06)
[2018-07-12] MEDS: ATROVENT NEB INH SCH ×6 (03:41→23:06)
[2018-07-12 04:45] LABS: ALLEN TEST YES; BE 4.7 mmoll (-3.0-3.0); BLOOD TYPE ARTERIAL; HCO3-(ACT) 28.6 mmoll (20.0-26.0); O2(CT) 5.7 mL/dL (15.0-23.0); O2HB 96.9 % (95.0-99.0); PCO2(98.6) 43 mmHg (35-45); PO2(98.6) 88 mmHg (60-100); SAMPLE BLOOD; SAO2 100.2 % (95.0-100.0); pH(98.6) 7.44 (7.35-7.45)
[2018-07-12 04:46] LABS: MODALITY COOL AEROSOL
[2018-07-12] MEDS: NS 1,000 ML IV SCH (04:56)
[2018-07-12 05:38] LABS: BASO# 0.06 X1000 (0.0-0.2); BASO% 0.6 % (0.0-0.8); EOS# 0.43 X1000 (0.0-0.7); HEMATOCRIT 25.3 % (37.0-47.0); IMM GRAN# 0.04 X1000 (0.0-0.04); IMM GRAN% 0.4 % (0.0-0.5); LYMPH# 1.41 X1000 (1.2-3.4); LYMPH% 13.2 % (20.5-51.1); MCH 28.4 PG (27-31); MCHC 31.6 g/dL (33-37); MCV 89.7 FL (81-99); MONO# 0.58 X1000 (0.11-0.59); MONO% 5.4 % (1.7-9.3); MPV 10.4 FL (7.4-10.4); NEUT# 8.19 X1000 (1.4-6.5); NEUT% 76.4 % (42.2-75.2); PLT 408 X1000 (130-400); RBC 2.82 XMIL (4.2-5.4); WBC 10.71 X1000 (4.8-10.8)
[2018-07-12 05:49] LABS: AGAP 10; ALB/GLOB RATIO 0.7; ALBUMIN 2.4 g/dL (3.5-5.0); ALKALINE PHOSPHATASE 203 U/L (32-104); BUN 23 mg/dL (8-22); CALCIUM 9.1 mg/dL (8.8-10.2); CHLORIDE 113 mmol/L (98-107); COSMO 307; CREATININE 0.4 mg/dL (0.5-0.9); ESTIMATED GFR > 60; GLUCOSE 198 mg/dL (70-104); GOT 18 U/L (10-30); GPT 20 U/L (10-36); POTASSIUM 2.8 mmol/L (3.5-5.1); SODIUM 150 mmol/L (136-145); TCO2 27 mmol/L (25-35); TOTAL BILIRUBIN 0.18 mg/dL (0.20-1.00)
[2018-07-12] MEDS: HUMALOG SUBQ SCH ×4 (06:35→21:49)
--- NOTE | 2018-07-12 06:52 | INFECTIOUS DISEASE PROGRESS NO ---
DATE: 07/12/2018 PRESENT ILLNESS: The patient has a gram-negative bianca infected sacral decubitus ulcer with underlying osteomyelitis of the sacrum. The patient also has a left lower lobe pneumonia being caused by Acinetobacter. MEDICATIONS: The patient is on meropenem as a single agent. This is day 1 of meropenem. PHYSICAL EXAMINATION: Vital Signs: Temperature is 98.1 degrees, pulse 102, respirations 26, blood pressure 155/87. General: This is an ill-appearing, middle-aged female. She is in no acute distress. Head/eyes/ears/nose/throat: She can hear my spoken words. She can see near objects. There is no drainage from the nose or ears. She does not have any white patches on her tongue. Neck: Patient has a permanent tracheostomy in place. Lungs: Clear to auscultation. Cardiovascular: Heart rate is regular. Abdomen: Soft and nontender. Back: The patient has a dressing on her sacral decubitus ulcer. Neurologic: The patient is awake. She tried to talk but because she has tracheostomy no words came out. I was able to communicate with her with by asking her questions and she would shake her head yes or no. She moved her arms very well. Abdomen: Soft and nontender. A G-tube is in place. The site is not erythematous. Integument: The patient has a PICC in the right arm. That site too is not erythematous or tender. LAB AND X-RAY: The [place] [address], hemoglobin 8, platelet count 408,000. Blood gases show a pH of 7.44, PO2 of 88, and a pCO2 of 43, creatinine is 0.4. GFR is greater than 60. The patient's CK is 72. Alkaline phosphatase is 203. The patient's sacral decubitus infection is growing a gram-negative bianca. There is underlying osteomyelitis as well. The patient's sputum grew Acinetobacter. Chest x-ray shows improvement in the left lower lobe infiltrate. The patient has been seen by Dr. Goncalves who feels that the patient is not a surgical candidate. My plan is to continue meropenem and local treatment and the patient and the patient is also getting local treatment to her sacral wound. ASSESSMENT AND PLAN: The patient has an infected sacral decubitus ulcer and underlying osteomyelitis along with pneumonia. I plan to continue meropenem as a single antibiotic. COMORBIDITIES: They include dementia, cardiac arrest, chronic respiratory failure with need of a tracheostomy, diabetes mellitus, and hepatitis C. cc: Manav Zarco MD [facility]
--- NOTE | 2018-07-12 06:59 | Diag Imaging Result Doc PS360 ---
EXAM: CHEST-PORTABLE HISTORY: Vent Protocol TECHNIQUE: Portable chest single view COMPARISON: 07/11/2018 FINDINGS: Tracheostomy tube and right-sided PICC line are unchanged. There are infiltrates and/or atelectasis in the lung bases on the current exam. There may be tiny left pleural effusion as well. IMPRESSION: Interval worsening Electronically signed by Kian Larios 07/12/2018 6:57 AM
[2018-07-12] MEDS: MUCOMYST 20% INH SCH ×2 (07:45→19:18)
[2018-07-12] MEDS: PLAVIX PEG SCH (09:43)
[2018-07-12] MEDS: LOVENOX SUBQ SCH (09:43)
[2018-07-12] MEDS: ZYLOPRIM PEG SCH (09:43)
[2018-07-12] MEDS: SANTYL OINT TOP SCH (09:44)
[2018-07-12] MEDS ORDERED: PREVACID SOLUTAB PO ONE (12:26)
[2018-07-12] MEDS ORDERED: DULCOLAX PR PRN (12:27)
[2018-07-12] MEDS ORDERED: 1/2 NS 1,000 ML IV SCH (12:30)
[2018-07-12] MEDS ORDERED: POTASSIUM CHLORIDE 20% LIQUID GT ONE (12:45)
[2018-07-12] MEDS: POTASSIUM CHLORIDE 20 MEQ/SWI 20 MEQ/100 ML IVPB IV SCH ×2 (12:53→15:07)
--- NOTE | 2018-07-12 12:58 | PROGRESS NOTE ---
DATE: 07/12/2018 SUBJECTIVE: Patient is awake and alert. I think she is complaining of some epigastric pain. OBJECTIVE: Blood pressure 151/99, heart rate of 115, respiratory rate 30, and temperature 98.6 degrees. No fevers.Cardiovascular: Tachy. Pulmonary: She has end-expiratory wheezing, and some rhonchi. GI: Soft. Nontender. Nondistended. Bowel sounds are positive. LABORATORY DATA: Sodium has risen to 150, potassium 2.8. A pH 7.44, pCO2 43, and PaO2 88. White count 10, hemoglobin and hematocrit 8 and 25, and platelets 408,000. PROBLEM LIST: 1. Acute on chronic respiratory failure, status post tracheostomy. Pulmonary is following and helping manage that issue. She is on a trach collar right now. This morning her blood gas looked well. 2. Left-sided pneumonia. She is on vancomycin and ertapenem per Dr. Zarco. 3. VRE positive culture, decubitus stage IV ulcer. We are going to continue wound care. She is getting vancomycin. Her sputum has grown out Acinetobacter which is only sensitive to gentamicin and tobramycin which presumably there is no testing against carbapenems, but I am suspicious that it may be negative now. Her kidney function is intact although she has got some azotemia, but I do not know if Dr. Zarco is following. So at this point, we are just going to do meropenem which presumably will cover the Acinetobacter. 4. Hypernatremia, likely due to free water depletion. I have started some half-normal. I will increase her free water flushes and her tube feeds. 5. Hypokalemia. We will supplement and follow. DISPOSITION: Pending clinical status. cc: Casey Perkins MD
[2018-07-12] MEDS: TYLENOL GT PRN (14:36)
--- NOTE | 2018-07-12 14:47 | PULMONOLOGY PROGRESS NOTE ---
DATE: 07/12/2018 SUBJECTIVE: The patient is awake. She appears to be playing with the TV remote, although she does not appear to be oriented. OBJECTIVE: Vital signs: The patient has been afebrile for the last 24 hours. Blood pressure 148/94, heart rate 106, respiratory rate 22, oxygen saturation 100% on trach collar. No increased work of breathing. HEENT: Pupils are equal and reactive. Oropharynx appears dry but clear. Chest: Reveals shallow breath sounds with rhonchi bilaterally. Cardiac: Increased rate. Regular rhythm. Abdomen: Soft with positive bowel sounds. Extremities: Reveal trace edema. LABORATORIES: Arterial blood gas reveals a pH 7.44, pCO2 of 43, PO2 of 88 on 35% FiO2. Chest x- ray reveals interval worsening left greater than right lung base. White blood count 10.7, hemoglobin 8.0, platelet count 408,000. Sodium 150, potassium 2.8, chloride 113, bicarbonate 27, BUN 23, creatinine 0.4. IMPRESSIONS: This is a 52-year-old with: 1. Multi-infarct dementia. 2. Bed-bound status. 3. Sacral decubitus with osteomyelitis. 4. Drug-resistant Acinetobacter pneumonia. 5. Status post tracheostomy. 6. Protein calorie malnutrition. 7. Acute hypoxemic respiratory failure. RECOMMENDATION: 1. Continue trach collar. 2. Continue antibiotics per Infectious Disease. 3. Continue tube feeds as tolerated. 4. The patient needs additional free water. This is being addressed by Dr. Perknis. 5. DNR level 1. cc: Ariel Paredes MD
[2018-07-12] MEDS: FEOSOL LIQUID PEG SCH (21:44)
[2018-07-12] MEDS: MIRALAX PEG SCH (21:45)
[2018-07-12] MEDS: PREVACID SOLUTAB PO SCH (21:46)
[2018-07-13] MEDS: MERREM 1 GM in NS 50 ML IV SCH ×3 (02:38→17:14)
[2018-07-13] MEDS: ATROVENT NEB INH SCH ×6 (03:11→22:50)
[2018-07-13] MEDS: XOPENEX NEB INH SCH ×6 (03:11→22:51)
[2018-07-13 04:38] LABS: HEMATOCRIT 28.3 % (37.0-47.0); MCH 28.8 PG (27-31); MCHC 31.8 g/dL (33-37); MCV 90.7 FL (81-99); MPV 10.3 FL (7.4-10.4); RBC 3.12 XMIL (4.2-5.4); RDW 15.1 % (11.5-14.5); WBC 11.01 X1000 (4.8-10.8)
[2018-07-13 04:44] LABS: ALLEN TEST YES; BLOOD TYPE ARTERIAL; HCO3-(ACT) 26.5 mmoll (20.0-26.0); METHB 0.9 % (0.0-1.5); O2(CT) 12.6 mL/dL (15.0-23.0); O2HB 96.7 % (95.0-99.0); PCO2(98.6) 40 mmHg (35-45); PO2(98.6) 90 mmHg (60-100); SAMPLE BLOOD; SAO2 99.1 % (95.0-100.0); THB 9.2 g/dL (11.5-17.4); pH(98.6) 7.43 (7.35-7.45)
[2018-07-13 04:45] LABS: MODALITY COOL AEROSOL
[2018-07-13 05:23] LABS: AGAP 10; BUN 21 mg/dL (8-22); CALCIUM 9.1 mg/dL (8.8-10.2); CHLORIDE 110 mmol/L (98-107); COSMO 296; CREATININE 0.3 mg/dL (0.5-0.9); ESTIMATED GFR > 60; GLUCOSE 183 mg/dL (70-104); POTASSIUM 3.6 mmol/L (3.5-5.1); SODIUM 145 mmol/L (136-145); TCO2 25 mmol/L (25-35)
--- NOTE | 2018-07-13 06:39 | Diag Imaging Result Doc PS360 ---
EXAM: CHEST-PORTABLE HISTORY: Vent Protocol TECHNIQUE: Portable chest single view COMPARISON: 07/12/2018 FINDINGS: No change in the right-sided PICC line or tracheostomy tube. The basilar infiltrates and atelectasis are slightly less pronounced on the current study. There are small pleural effusions. IMPRESSION: Mild interval improvement. Electronically signed by Kian Larios 07/13/2018 6:37 AM
[2018-07-13] MEDS: MUCOMYST 20% INH SCH ×2 (07:20→19:31)
[2018-07-13] MEDS: PREVACID SOLUTAB PO SCH ×2 (07:25→20:45)
[2018-07-13] MEDS: HUMALOG SUBQ SCH ×4 (07:25→21:30)
--- NOTE | 2018-07-13 08:55 | INFECTIOUS DISEASE PROGRESS NO ---
DATE: 07/13/2018 PRESENT ILLNESS: The patient has an Acinetobacter infected sacral decubitus ulcer with underlying osteomyelitis of the sacrum. She also has an Acinetobacter basilar pneumonia/atelectasis. MEDICATIONS: This is the second day of treatment with meropenem. PHYSICAL EXAMINATION: Vital Signs: Temperature 98 degrees, pulse 108, respirations 21, blood pressure 162/99. General: This is an ill-appearing, middle-aged female. She is in no acute distress. HEAD EYES, EARS, NOSE AND THROAT: No drainage is noted from the nose or ears. She does not have any white coating on her tongue.Neck: The patient has a tracheostomy in place. There does not seem to be any pain when the patient moves her neck. Lungs: Clear to auscultation. Cardiovascular: Regular heart rate. Extremities: The patient has a PICC in the right arm. The site is not erythematous or swollen. Abdomen: Soft and nontender. A G-tube is in place. The site is not erythematous or purulent. Neurologic: The patient is awake. She does follow requests to move her extremities. She tries to talk also. LAB AND X-RAY: [place] [address], hemoglobin 9, platelet count 451,000 arterial blood gases show a pH of 7.43, a PO2 of 90, a pCO2 of 40. Creatinine is 0.3. GFR is greater than 60. Chest x-ray shows improvement in the bibasilar infiltrates/atelectasis. ASSESSMENT AND PLAN: 1. Patient has Acinetobacter pneumonia, and infected sacral decubitus with underlying osteomyelitis. I plan to continue meropenem as a single agent. I have requested microbiology to send off the patient's Acinetobacter specimen and send it for susceptibility to meropenem. Dr. Goncalves will debride the wound. COMORBIDITIES: Dementia, cardiac arrest, chronic respiratory failure with need of a tracheostomy, diabetes mellitus, and hepatitis C. cc: Manav Zarco MD [facility]
[2018-07-13] MEDS: FEOSOL LIQUID PEG SCH ×2 (09:01→20:45)
[2018-07-13] MEDS: MIRALAX PEG SCH ×2 (09:01→20:45)
[2018-07-13] MEDS: ZYLOPRIM PEG SCH (09:02)
[2018-07-13] MEDS: PRINIVIL PEG SCH (09:02)
[2018-07-13] MEDS: LOVENOX SUBQ SCH (09:02)
[2018-07-13] MEDS: SINGULAIR PEG SCH (09:02)
[2018-07-13] MEDS: SANTYL OINT TOP SCH ×2 (09:02)
[2018-07-13] MEDS: PLAVIX PEG SCH (09:03)
--- NOTE | 2018-07-13 09:50 | PULMONOLOGY PROGRESS NOTE ---
DATE: 07/13/2018 SUBJECTIVE: Patient appears awake and alert. She does not follow commands. She appears to be comfortable on the trach collar. By nursing report, she had a mucus plug earlier which was cleared with bagging and lavage. OBJECTIVE: Vital Signs: Maximum temperature in the last 24 hours was 100.4 degrees. Blood pressure 162/99, heart rate 98, respiratory rate 20, oxygen saturation 100%. HEENT: Pupils are equal and reactive. Tracheostomy appears to be in good position. Neck is supple. Chest reveals crackles in both lung bases with bilateral rhonchi. Cardiac Examination: S1-S2. Abdomen: Soft. Extremities: Without edema. Laboratories: Chest x-ray reveals small bilateral effusions with decreased basilar infiltrates and mild improvement. Arterial blood gas on cool aerosol reveals a pH of 7.43, pCO2 of 40, PO2 of 90. IMPRESSION: A 53-year-old (today is her birthday) with: 1. Multiinfarct dementia. 2. Chronic respiratory failure, status post tracheostomy. 3. Bedbound status. 4. Sacral decubitus with osteomyelitis. 5. Drug-resistant Acinetobacter pneumonia. 6. Protein calorie malnutrition. RECOMMENDATIONS: 1. Continue trach collar trial. 2. Continue antibiotics per infectious disease. 3. Tube feeds as tolerated. 4. Prognosis is poor. Palliative care is contacting Bina Mayberry who is a "friend and guardian". cc: Ariel Paredes MD
[2018-07-13] MEDS ORDERED: GENTAMICIN IV PER PHARMACY MISC SCH (10:45)
--- NOTE | 2018-07-13 11:35 | PROGRESS NOTE ---
DATE: 07/13/2018 SUBJECTIVE: She is much more awake and alert today. OBJECTIVE: Vital Signs: Blood pressure is 162/99, heart rate 108, respiratory rate 21, and temperature afebrile/97.7. She had a temp yesterday afternoon of 100.4. Cardiovascular: Regular rate and rhythm. Pulmonary: Bilateral breath sounds clear to auscultation. GI: Soft, nontender, and nondistended. Bowel sounds are positive. LABORATORY DATA: White count is 11, hemoglobin and hematocrit 9 and 28, and platelets 451. PH is 7.43, pCo2 40, pO2 90. Blood sugar is 205. PROBLEM LIST: 1. Acute on chronic respiratory failure, status post tracheostomy. She is doing well. She is just on a trach collar. Dr. Paredes is following her closely. 2. Left-sided pneumonia with positive culture for Acinetobacter. She is on vancomycin. She is currently on meropenem per Dr. Zarco. Now the Acinetobacter is very resistant. It is only sensitive to aminoglycosides which I know are typical reservations with that but I am going to give her a dose until we can get a little bit more concrete data that the meropenem is working. Dr. Zarco is getting that tested as we speak. 3. Deep stage 4 decubitus ulcer. Again, positive Acinetobacter for which she is getting antibiotics and Dr. Goncalves is looking at debridement tomorrow at the bedside. 4. Hypernatremia. That has essentially resolved. She was on 1/2 normal but that has been discontinued so I will be very careful with her free water intake. 5. Hypokalemia. We will supplement and follow. That has also improved. DISPOSITION: Pending her clinical status with her complicated wound and likely need for IV antibiotics she has a PICC line now and we will pursue LTAC evaluation and see how she does there. cc: Casey Perkins MD
[2018-07-13] MEDS ORDERED: GENTAMICIN 300 MG in NS 150 ML IV SCH (13:00)
[2018-07-14] MEDS: MERREM 1 GM in NS 50 ML IV SCH ×3 (02:55→18:31)
[2018-07-14] MEDS: XOPENEX NEB INH SCH ×6 (03:22→23:07)
[2018-07-14] MEDS: ATROVENT NEB INH SCH ×6 (03:22→23:07)
[2018-07-14 05:10] LABS: ALLEN TEST YES; BE 5.9 mmoll (-3.0-3.0); BLOOD TYPE ARTERIAL; HCO3-(ACT) 29.5 mmoll (20.0-26.0); METHB 0.9 % (0.0-1.5); O2(CT) 11.9 mL/dL (15.0-23.0); O2HB 96.8 % (95.0-99.0); PCO2(98.6) 48 mmHg (35-45); PO2(98.6) 104 mmHg (60-100); SAMPLE BLOOD; SAO2 99.3 % (95.0-100.0); THB 8.6 g/dL (11.5-17.4); pH(98.6) 7.42 (7.35-7.45)
[2018-07-14 05:14] LABS: MODALITY CANNULA
[2018-07-14 05:15] LABS: HEMATOCRIT 28.1 % (37.0-47.0); HEMOGLOBIN 8.8 g/dL (12.0-16.0); MCH 28.8 PG (27-31); MCHC 31.3 g/dL (33-37); MCV 91.8 FL (81-99); MPV 10.3 FL (7.4-10.4); RBC 3.06 XMIL (4.2-5.4); RDW 14.6 % (11.5-14.5); WBC 10.88 X1000 (4.8-10.8)
[2018-07-14 05:30] LABS: AGAP 11; BUN 22 mg/dL (8-22); CALCIUM 8.7 mg/dL (8.8-10.2); CHLORIDE 111 mmol/L (98-107); COSMO 301; CREATININE 0.3 mg/dL (0.5-0.9); ESTIMATED GFR > 60; GLUCOSE 154 mg/dL (70-104); POTASSIUM 3.3 mmol/L (3.5-5.1); SODIUM 148 mmol/L (136-145); TCO2 26 mmol/L (25-35)
[2018-07-14] MEDS: HUMALOG SUBQ SCH ×4 (06:19→20:23)
[2018-07-14] MEDS: PREVACID SOLUTAB PO SCH ×2 (06:20→20:24)
[2018-07-14] MEDS: MUCOMYST 20% INH SCH ×2 (07:37→19:27)
--- NOTE | 2018-07-14 07:48 | Diag Imaging Result Doc PS360 ---
EXAM: CHEST-PORTABLE HISTORY: Vent Protocol TECHNIQUE: Portable chest single view COMPARISON: 07/13/2018 FINDINGS: No change in the tracheostomy tube or right-sided PICC line. There are fewer infiltrates in the lung bases than there were on the prior study, particularly in the left base. No cardiomegaly. No pleural effusions identified. IMPRESSION: Interval improvement. Electronically signed by Kian Larios 07/14/2018 7:45 AM
--- NOTE | 2018-07-14 08:04 | OPERATIVE NOTE ---
PROCEDURE DATE: 07/14/2018 PREOPERATIVE DIAGNOSIS: Stage IV pressure ulcer to the sacrum. POSTOPERATIVE DIAGNOSIS: Stage IV pressure ulcer to the sacrum. PROCEDURE PERFORMED: Excision and debridement of skin, subcutaneous tissue, muscle, and fascia measuring 49 square cm. SURGEON: Carlito Goncalves MD. CORRESPONDENCE CLERK: None. ANESTHESIA: None. FINDINGS: Slough noted but actually had some bleeding noted around it after debriding some of the tissue. COMPLICATIONS: None at the time of this dictation. BRIEF HISTORY: A 53-year-old female with multiple medical comorbidities, with a pressure ulcer. Cost that she would benefit from some debridement. DESCRIPTION OF PROCEDURE: After consent was obtained, patient remained in her ICU bed. She was repositioned to have this sacral wound exposed. We removed the previous packing. Using a combination of scissors and a scalpel, we were able to debride and sharply excised skin, subcutaneous tissue, and muscle with fascia, approximately 49 square cm. We debrided back to healthy tissue. There was still a significant amount of slough noted but, again, we were able to get some bleeding tissue around the whole area. We felt like this would be a good stopping point. We did not debride the bone because there still appeared to be some tissue above it. We placed a dressing back into the wound. The patient tolerated the procedure well. cc: Carlito Goncalves MD [facility]
--- NOTE | 2018-07-14 08:08 | GENERAL SURGERY PROGRESS NOTE ---
DATE: 07/14/2018 SUBJECTIVE: Discussed with Dr. Zarco. Wound is still present and not really improving but not significantly getting worse. The patient still remains about the same. No other issues reported by the nursing staff. OBJECTIVE: Vital Signs: Patient is currently afebrile. Her vital signs stable. General: No acute distress. Cardiovascular: Somewhat tachycardic. Lungs: Referred airway noises from the trach. Abdomen: Soft, nontender, nondistended. Back: Sacral decubitus 49 cm2 total stage IV all the way down to brittle coccyx. Less slough noted. LABORATORY DATA: Reviewed. White blood cell count 10, hematocrit 28, platelet count 454,000. Remainder of labs reviewed. ASSESSMENT AND PLAN: A 53-year-old, stage IV pressure ulcer on sacrum. Stage IV pressure ulcer. At this time, performed a bedside debridement. Please see the operative dictation. Otherwise, continue current treatment. cc: Carlito Goncalves MD
[2018-07-14] MEDS: SANTYL OINT TOP SCH ×2 (09:22→09:23)
[2018-07-14] MEDS: FEOSOL LIQUID PEG SCH ×2 (09:22→20:35)
[2018-07-14] MEDS: PLAVIX PEG SCH (09:23)
[2018-07-14] MEDS: ZYLOPRIM PEG SCH (09:23)
[2018-07-14] MEDS: MIRALAX PEG SCH ×2 (09:23→20:23)
[2018-07-14] MEDS: SINGULAIR PEG SCH (09:23)
[2018-07-14] MEDS: PRINIVIL PEG SCH (09:23)
[2018-07-14] MEDS ORDERED: POTASSIUM CHLORIDE 40 MEQ in 1/2 NS 1,000 ML IV SCH (09:45)
--- NOTE | 2018-07-14 10:25 | PROGRESS NOTE ---
DATE: 07/14/2018 SUBJECTIVE: Patient has no major complaints. She is actually smiling. She is chewing on a wetting stick. OBJECTIVE: Blood pressure is 137/80, heart rate 96, respiratory rate 18, and temperature was 97.1 degrees. No fever. She is 100% on 35%. Trach collar. PROBLEM LIST: 1. Acute on chronic respiratory failure, status post tracheostomy. She is doing better. Dr. Paredes following. 2. Acinetobacter complex pneumonia. She is on Merrem and I added gentamicin yesterday just until we can get her sensitivities back. Of course at the discretion of Dr. Zarco. We are going to continue to follow closely. 3. Decubitus ulcers stage IV. Acetobacter positive. We will continue to follow her closely. Continue debridement and follow. 4. Hypernatremia. We will continue treatment. She is still very free water deficit per dietitian. She has had issues previously with significant hypernatremia and, we are going to adjust her free water intake. We are going to give her half-normal and see how she does. 5. Hypokalemia that is also improved. DISPOSITION: We are looking at LTAC possibilities, and those were sent off today, but she is doing better. I think she could probably go to step-down soon pending current work up. cc: Casey Perkins MD
--- NOTE | 2018-07-14 11:40 | INFECTIOUS DISEASE PROGRESS NO ---
DATE: 07/14/2018 PRESENT ILLNESS: The patient has an Acinetobacter infected sacral decubitus along with an osteomyelitis of the sacrum. The patient also has an Acinetobacter pneumonia. MEDICATIONS: This is the third day of treatment with meropenem. Yesterday Dr. Perkins started the patient on gentamicin. PHYSICAL EXAMINATION: Vital Signs: Temperature is 98 degrees, pulse is 96, respirations 18, blood pressure 137/80. General: This is an ill-appearing, middle-aged female. She is in no acute distress. Head, Eyes, Ears, Nose, and Throat: She can hear my spoken words and see near objects. She does not have any white patches on her tongue. Neck: The patient has a tracheostomy in place. Lungs: Clear to auscultation. Cardiovascular: Regular heart rate. Extremities: Patient has a PICC in the right arm. The site is not swollen or red. Abdomen: Soft and nontender. A G-tube is in place. The site is not erythematous or purulent. Neurologic: The patient is awake. She can move her extremities. There is no tremor. DIAGNOSTIC STUDIES: CBC shows a white count of 10,880, hemoglobin 8.8, and platelet count 454,000. Creatinine is 0.3, GFR is greater than 60. Blood gases show a pH of 7.42, a PO2 of 104, and a pCO2 of 48. The chest x-ray done today shows improvement in both basilar infiltrates. ASSESSMENT AND PLAN: 1. The patient has an Acinetobacter pneumonia. 2. Infected sacral decubitus. 3. Sacral osteomyelitis. The patient is on meropenem and gentamicin. The patient's wound was debrided yesterday by Dr. Goncalves. COMORBIDITIES: 1. The patient has dementia. 2. She had a cardiac arrest. 3. She has chronic respiratory failure. 4. Diabetes mellitus. 5. Hepatitis C. cc: Manav Zarco MD
--- NOTE | 2018-07-14 20:04 | PULMONOLOGY PROGRESS NOTE ---
DATE: 07/14/2018 SUBJECTIVE: The patient is awake, alert. She is smiling. She has no increased work of breathing. OBJECTIVE: Vital Signs: Blood pressure 136/76, heart rate 100, respiratory rate 19, oxygen saturation 98% on 35% trach collar. HEENT: Pupils are equal and reactive. Oropharynx appears clear. Neck: Supple with tracheostomy in place. Chest: Reveals occasional rhonchi without wheezing or crackles. Cardiac: S1, S2. Abdomen: Soft with positive bowel sounds. Extremities: Without edema. LABORATORIES: White blood count 10.8, hemoglobin 8.8, platelet count 454,000. Arterial blood gas, pH 7.42, pCO2 of 48, PO2 of 104. Chest x-ray reveals mild clearing in the lung bases. No new microbiology. IMPRESSION: 1. A 53-year-old with Acinetobacter pneumonia. 2. Chronic hypoxemic respiratory failure, status post tracheostomy. 3. Multi-infarct dementia. 4. Sacral decubitus with osteomyelitis. 5. Protein-calorie malnutrition. DISCUSSION: This is a 53-year-old with problems outlined above. She appears to be stable off mechanical ventilation. RECOMMENDATIONS: 1. Continue trach collar trial. 2. Continue antibiotics for drug-resistant Acinetobacter per Infectious Disease. 3. Continue tube feeds as tolerated. 4. Long-term acute care facility being evaluated due to the patient's need for ongoing management of her stage IV decubitus ulcer. cc: Ariel Paredes MD
[2018-07-15] MEDS ORDERED: GENTAMICIN 300 MG in NS 150 ML IV SCH ×2 (01:30→13:00)
[2018-07-15] MEDS: MERREM 1 GM in NS 50 ML IV SCH (02:40)
[2018-07-15] MEDS: ATROVENT NEB INH SCH ×3 (03:31→10:42)
[2018-07-15] MEDS: XOPENEX NEB INH SCH ×3 (03:31→10:42)
[2018-07-15 05:24] LABS: HEMATOCRIT 25.8 % (37.0-47.0); HEMOGLOBIN 8.3 g/dL (12.0-16.0); MCH 29.4 PG (27-31); MCHC 32.2 g/dL (33-37); MCV 91.5 FL (81-99); MPV 9.8 FL (7.4-10.4); RBC 2.82 XMIL (4.2-5.4); RDW 14.5 % (11.5-14.5)
[2018-07-15] MEDS: PREVACID SOLUTAB PO SCH (06:01)
[2018-07-15 06:04] LABS: AGAP 8; BUN 22 mg/dL (8-22); CALCIUM 8.4 mg/dL (8.8-10.2); CHLORIDE 109 mmol/L (98-107); COSMO 298; CREATININE 0.4 mg/dL (0.5-0.9); ESTIMATED GFR > 60; GLUCOSE 199 mg/dL (70-104); POTASSIUM 4.1 mmol/L (3.5-5.1); SODIUM 145 mmol/L (136-145); TCO2 28 mmol/L (25-35)
[2018-07-15] MEDS: HUMALOG SUBQ SCH ×2 (06:23→10:47)
--- NOTE | 2018-07-15 07:38 | Diag Imaging Result Doc PS360 ---
CHEST-PORTABLE - 07/15/2018 INDICATION: Vent Protocol COMPARISON: 07/14/2018 FINDINGS: Support lines and tubes are stable. There is mild worsening infiltrate or atelectasis at the right lung base. The left lung appears clear. Heart size and pulmonary vascularity is top normal. IMPRESSION: Slight worsening infiltrate or atelectasis at the right lower lobe. Electronically signed by Colten Moran 07/15/2018 7:36 AM
[2018-07-15] MEDS: MUCOMYST 20% INH SCH (07:49)
[2018-07-15] MEDS: PRINIVIL PEG SCH (08:11)
[2018-07-15] MEDS: PLAVIX PEG SCH (08:11)
[2018-07-15] MEDS: FEOSOL LIQUID PEG SCH (08:11)
[2018-07-15] MEDS: ZYLOPRIM PEG SCH (08:11)
[2018-07-15] MEDS: MIRALAX PEG SCH (08:11)
[2018-07-15] MEDS: SANTYL OINT TOP SCH ×2 (08:11→10:03)
[2018-07-15] MEDS: SINGULAIR PEG SCH (08:11)
[2018-07-15 10:06] VITALS: BP 96/65
--- NOTE | 2018-07-15 10:48 | DISCHARGE SUMMARY ---
ADMISSION DATE: 07/09/2018 DISCHARGE DATE: 07/15/2018 DISCHARGE DIAGNOSES: 1. Acute respiratory failure. 2. Acinetobacter pneumonia, Acinetobacter decubitus ulcer, stage IV. 3. Hypernatremia. 4. Hypokalemia. CONSULTATIONS: Dr. Paredes, Pulmonary. Dr. Manav Zarco, Infectious Diseases. Dr. Carlito Goncalves, General Surgery. PROCEDURES: Surgical debridement of decubitus ulcer. BRIEF HISTORY: Briefly, this is a 53-year-old female. She is a chronic resident at [facility]. She is trach collar dependent. She has a large sacral decubitus. She has had a history of VRE in that decubitus for which I think she was getting IV antibiotics. History of hepatitis C, history of multi-infarct dementia, although her mental status has been pretty good here as far as improving. She is status post PEG. She came in with hypoxia. She was on a non-rebreather. She was suctioned and then she was placed on a ventilator. Reportedly she had been a DNR previously. She had a portable DNR. She was placed on daptomycin and ertapenem per Dr. Zarco. There was concern over sacral osteomyelitis. Pulmonary and ID were both consulted. Dr. Paredes managed her ventilator. She had a sputum culture which also grew out Acinetobacter. Wound care was sent off and Dr. Goncalves was consulted for debridement. She had 1 out of 2 positive blood cultures for coagulase-negative Staphylococcus that was felt to be a contaminant, but her sputum culture grew out Acinetobacter baumannii, and her wound culture grew out Acinetobacter baumannii which was completely resistant to everything except gentamicin and tobramycin. She was placed on Merrem with anticipation that it would be sensitive; however, additional testing revealed that Merrem sensitivity was lacking, there was no Merrem sensitivity. I did put her on gentamicin having really no other choice. I do have a call in to Dr. Zarco to decide about antibiotics but for the time being we will use gentamicin monotherapy. Her kidney function is intact. I am not really sure what other choices we have in that respect. Infectious Diseases though apparently is going to follow her at the LTAC. Dr. Goncalves debrided the wound I believe at the bedside on 07/14/2018, and she had wound care. The plan is going to be for aggressive wound care and treatment. Pulmonary, she was able to be weaned back to just a trach collar. She has not been on a ventilator in over 48 hours and has done fine, although she has had some intermittent mucus plugging which did require some bag ventilation. Discharge condition was stable. On 07/15/2018, her white count was normal at 11,000 it was 16,000 when she came in. Hemoglobin and hematocrit 8 and 25. Breathing was acceptable. Her sodium was down to 145. She did have some issues with free water flushing and we did increase her free water flushes because she has had issues with hypernatremia before and I would watch that closely. Discharge medications, she is on Dulcolax p.r.n., lisinopril 5 daily, MiraLAX 17 b.i.d., Plavix 75 daily, collagenase to her sacral wound, Singulair 10 daily, Tylenol p.r.n., allopurinol 300 daily, gentamicin per pharmacy dosing is 300 IV every 30 hours, Feosol 220 b.i.d., Tylenol p.r.n. I probably would also add breathing treatments and Mucomyst. She is not on any breathing treatments right now, but she is on some Mucomyst which I think we probably should continue. In any case the patient is stable for transfer to the facility. She is going to go to LTAC who has accepted her. I would recommend weekly BMPs probably a BMP in 48 hours since she is on gentamicin unless they decide to change her antibiotic. I have ordered it for 10 days. Discharge condition is stable. This is a 32-minute discharge. She will be followed closely and continue aggressive wound care. Please change gentamicin to [id number]; and check gentamicin in 48 hours randoms; unless there is change in creatinine; please check creatinine in 48 hours. cc: Casey Perkins MD [facility]
== END 2018-07-15 11:20 | DRG 853 ==
LOC: SUPCPDRO → ED 08:32 → ICU 11:16 → SUATTDRO 11:16
PROVIDERS: ATTEND Internal Medicine
CPT/HCPCS: 36430; 51702; 71010; 71045; 80048; 80053; 80170; 81001; 82550; 82805; 82948; 83605; 83735; 84100; 84134; 84484; 85025; 85027; 85610; 85730; 86850; 86900; 86901; 86920; 87040; 87070; 87077; 87088; 87186; 87205; 93005; 94003; 94640; 94761; 96365; 96375; 99285; A9270; J0878; J1335; J1580; J1650; J1815; J2185; J2543; J2997; J3370; J3480; J7030; P9016; XXXXX